=== PATIENT | male | born 1935 | race African-American/Black ===

== ENCOUNTER 2017-12-03 09:47 | Inpatient (IN) | payer OTHER, BC ==
--- NOTE | 2017-12-03 10:05 | PDOC ---
History of Present Illness - General Chief Complaint: Shortness of Breath Stated Complaint: FLU Time Seen by Provider: 12/03/17 10:02 History Source: Patient Exam Limitations: No Limitations - History of Present Illness Initial Comments: CHIEF COMPLAINT: 82 y/o febrile, tachycardic male with no significant PMH (No PCP or medical care in years) c/o body aches, fever, and productive cough of white sputum x 2 days. HISTORY OF PRESENT ILLNESS: The patient denies earache, runny nose, sore throat , CP, SOB, abd pain, n/v/d. He took tylenol yesterday for his symptoms. He did not have the flu shot this year. He is not on oxygen at home. 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 Vital signs on arrival are notable for pulse of 139 secondary to temp of 100.3. REVIEW OF SYSTEMS: GENERAL/CONSTITUTIONAL: +fever/chills. +body aches. No weakness. No weight change. HEAD, EYES, EARS, NOSE AND THROAT: No change in vision. No ear pain or discharge. No sore throat. CARDIOVASCULAR: No chest pain or shortness of breath. RESPIRATORY: +productive cough of white sputum. No wheezing or hemoptysis. GASTROINTESTINAL: No abd pain, nausea, vomiting, diarrhea. GENITOURINARY: No dysuria, frequency, or change in urination. MUSCULOSKELETAL: No joint or muscle swelling or pain. No neck or back pain. SKIN: No rash or easy bruising. NEUROLOGIC: No headache, vertigo, loss of consciousness, or loss of sensation. PHYSICAL EXAM: GENERAL: The patient is awake, alert, and fully oriented, in no acute distress. He has a consistent wet sounding cough. He is 97% on 2L of O2. HEAD: Normal with no signs of trauma. ENT: Pupils equal, round and reactive to light, extraocular movements intact, sclera anicteric, conjunctiva clear. Neck supple. LUNGS: Diffuse tight expiratory wheezing across all bravo. Labored breathing. CV: Rapid irregular rate, S1/S2, no MRG. Cap refill < 2 sec. ABDOMEN: Soft, non-distended, non-tender even to deep palpation, no hepatomegaly or splenomegaly, no masses. EXTREMITIES: Normal range of motion, no edema. NEUROLOGICAL: Normal speech, normal gait. CN II-XII grossly intact. PSYCH: Normal mood, normal affect. SKIN: Warm, dry, normal turgor, no rashes or lesions noted. Past History - Past Medical History Allergies/Adverse Reactions: Allergies Allergy/AdvReac Type Severity Reaction Status Date / Time No Known Allergies Allergy Verified 12/03/17 10:06 - Suicide/Smoking/Psychosocial Hx Smoking History: Current some day smoker Have you smoked in the past 12 months: Yes Number of Cigarettes Smoked Daily: 2 Information on smoking cessation initiated: No Hx Alcohol Use: No Drug/Substance Use Hx: No *Physical Exam - Vital Signs Last Vital Signs Temp Pulse Resp BP Pulse Ox 100.3 F H 139 H 20 119/75 98 12/03/17 09:56 12/03/17 09:56 12/03/17 09:56 12/03/17 09:56 12/03/17 09:56 Heart Score/ECG Review - ECG Intrepretation Comment:: Twelve-lead EKG was performed and reviewed by Dr. Wilson. There is sinus tachycardia with T wave abnormality. Impression: Abnormal twelve-lead EKG ED Treatment Course - LABORATORY CBC & Chemistry Diagram: 12/03/17 11:00 12/03/17 11:00 Medical Decision Making - Medical Decision Making A/P: 82 y/o febrile male with flu like symptoms. Plan is as follows: 1. Sepsis work up 2. Influenza swab 3. CXR 4. Duoneb x 2 5. IV tylenol 6. O2 via NC Elevated lactic Influenza A - positive Elevated troponin - 0.19 Will admit to [facility]. Spoke with ADELE Frederick who accepts admission under [facility]. Will call [facility] for consult. *DC/Admit/Observation/Transfer Diagnosis at time of Disposition: Influenza A, Tachycardia, Elevated troponin, Hypoxia, Wheezing, Lactic acidosis - Discharge Dispostion Condition at time of disposition: Stable Admit: Yes - Referrals - Patient Instructions - Post Discharge Activity
--- NOTE | 2017-12-03 10:58 | EKG ---
Test Reason : Blood Pressure : / mmHG Vent. Rate : 135 BPM Atrial Rate : 135 BPM P-R Int : 130 ms QRS Dur : 074 ms QT Int : 304 ms P-R-T Axes : 082 -78 078 degrees QTc Int : 456 ms SINUS TACHYCARDIA POSSIBLE LEFT ATRIAL ENLARGEMENT LEFT AXIS DEVIATION T WAVE ABNORMALITY, CONSIDER LATERAL ISCHEMIA ABNORMAL ECG NO PREVIOUS ECGS AVAILABLE Confirmed by OSWALDO HAWTHORNE MD ([id number]) on 12/03/2017 10:57:46 AM Referred By: Confirmed By:OSWALDO HAWTHORNE MD
[2017-12-03] MEDS: ALBUTEROL SO4 2.5/IPRATROPIUM 0.5 INH SOL 3 ML VIAL.NEB. NEB SCH ×2 (11:11→22:35)
[2017-12-03 11:21] LABS: BASO % 0.3 % (0-2.0); HEMATOCRIT 46.8 % (35.4-49); LYMPH % 6.8 % (8-40); MCH 29.7 pg (25.7-33.7); MCHC 32.1 g/dl (32.0-35.9); MEAN CELL VOLUME 92.4 fl (80-96); MEAN PLT VOLUME 9.9 fl (7.5-11.1); MONO % 11.1 % (3.8-10.2); NEUT % 81.8 % (42.8-82.8); PLATELET COUNT 168 K/MM3 (134-434); RBC 5.07 M/mm3 (4.00-5.60); RDW 13.7 % (11.9-15.9); WHITE BLOOD COUNT 8.1 K/mm3 (4.0-10.0)
[2017-12-03 11:32] LABS: INR 0.98 (0.82-1.09); PROTHROMBIN TIME (PATIENT) 11.1 SEC (9.98-11.88)
[2017-12-03 11:35] LABS: ACTIVATED PTT 32.9 SECONDS (26.9-34.4)
[2017-12-03 11:52] LABS: ALBUMIN 3.2 g/dl (3.4-5.0); ANION GAP 9 (8-16); BILIRUBIN,TOTAL 0.6 mg/dL (0.2-1.0); BLOOD UREA NITROGEN 18 mg/dL (7-18); CALCIUM 8.2 mg/dL (8.5-10.1); CHLORIDE 100 mmol/L (98-107); CO2 27 mmol/L (21-32); CREATININE 0.8 mg/dL (0.7-1.3); GLUCOSE,RANDOM 143 mg/dL (74-106); POTASSIUM 4.1 mmol/L (3.5-5.1); SGOT/AST 218 U/L (15-37); SGPT/ALT 147 U/L (12-78); SODIUM 136 mmol/L (136-145); TOT PROT 6.8 g/dl (6.4-8.2)
[2017-12-03 11:54] LABS: ALK PHOS 71 U/L (45-117)
--- NOTE | 2017-12-03 12:21 | PDOC ---
*Physical Exam - Vital Signs Last Vital Signs Temp Pulse Resp BP Pulse Ox 100.3 F H 123 H 20 119/75 97 12/03/17 09:56 12/03/17 10:04 12/03/17 09:56 12/03/17 09:56 12/03/17 10:04 - Physical Exam Comments: 12/03/17 12:20 Fever, tachycardia, O2 sat 97% Heart Score/ECG Review #1 General ECG Interpretation: Sinus Rhythm (tachy at 135), Normal Intervals, No acute ischemic changes (septal q wave, nonspecific t wave changes) ED Treatment Course - LABORATORY CBC & Chemistry Diagram: 12/03/17 11:00 12/03/17 11:00 - ADDITIONAL ORDERS Additional order review: Laboratory Results 12/03/17 12/03/17 12/03/17 11:00 11:00 11:00 PT with INR 11.10 INR 0.98 PTT (Actin FS) 32.9 Sodium 136 Potassium 4.1 Chloride 100 Carbon Dioxide 27 Anion Gap 9 BUN 18 Creatinine 0.8 Creat Clearance w eGFR > 60 Random Glucose 143 H Calcium 8.2 L Total Bilirubin 0.6 AST 218 H ALT 147 H Alkaline Phosphatase 71 Creatine Kinase 761 H Troponin I 0.19 H Total Protein 6.8 Albumin 3.2 L Blood Type B POSITIVE Antibody Screen Negative 12/03/17 10:31 Influenza Types A,B Antigen (RIGO) - Final Nasopharyngeal Swab - Final 12/03/17 11:00 RBC 5.07 MCV 92.4 MCHC 32.1 RDW 13.7 MPV 9.9 Neutrophils % 81.8 Lymphocytes % 6.8 L Monocytes % 11.1 H Eosinophils % 0.0 Basophils % 0.3 - Medications Given in the ED: ED Medications Discontinued Medications Generic Name Dose Route Start Last Admin Trade Name Freq PRN Reason Stop Dose Admin Albuterol/Ipratropium 1 amp 12/03/17 10:30 12/03/17 11:11 Duoneb - NEB 12/03/17 10:46 1 amp Q15M EDDIE Administration Medical Decision Making - Medical Decision Making 12/03/17 12:20 Patient seen and evaluated with the nurse practitioner. I agree with the overall evaluation, assessment, and management with the following summary of visit: 82-year-old male presents with influenza-like illness, fever and tachycardia. Agree with fever workup as outlined, Influenza A positive No leukocytosis, equivocal troponin Fluids tamiflu admit *DC/Admit/Observation/Transfer Diagnosis at time of Disposition: Influenza A, Tachycardia, Elevated troponin, Hypoxia - Discharge Dispostion Condition at time of disposition: Stable - Referrals - Patient Instructions - Post Discharge Activity
[2017-12-03] MEDS ORDERED: ACETAMINOPHEN 1000 MG/100 ML VIAL (NON FORMULARY) IVPB ONE (13:12)
[2017-12-03] MEDS ORDERED: ACETAMINOPHEN INJECTION 100 ML IVPB ONE (13:29)
[2017-12-03] MEDS ORDERED: ACETAMINOPHEN 325 MG TABLET (FP) PO PRN (13:35)
--- NOTE | 2017-12-03 13:35 | HP ---
CHIEF COMPLAINT: SOB PCP: None HISTORY OF PRESENT ILLNESS: 82 year-old male with no reported PMH as he has not sought medical care in years. He takes no medications on a regular basis. Presents to the ED today with SOB, fever, cough, and body aches x 2 days. He did not get the flu shot. 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 Family History: Allergies No Known Allergies Allergy (Verified 12/03/17 10:06) HOME MEDICATIONS: NONE REVIEW OF SYSTEMS CONSTITUTIONAL: +fever +body aches Absent: chills, diaphoresis, generalized weakness, malaise, loss of appetite, weight change HEENT: Absent: rhinorrhea, nasal congestion, throat pain, throat swelling, difficulty swallowing, mouth swelling, ear pain, eye pain, visual changes CARDIOVASCULAR: Absent: chest pain, syncope, palpitations, irregular heart rate, lightheadedness , peripheral edema RESPIRATORY: +cough +SOB Absent: dyspnea with exertion, orthopnea, wheezing, stridor, hemoptysis GASTROINTESTINAL: Absent: abdominal pain, abdominal distension, nausea, vomiting, diarrhea, constipation, melena, hematochezia GENITOURINARY: Absent: dysuria, frequency, urgency, hesitancy, hematuria, flank pain, genital pain MUSCULOSKELETAL: +body aches Absent: myalgia, arthralgia, joint swelling, back pain, neck pain SKIN: Absent: rash, itching, pallor HEMATOLOGIC/IMMUNOLOGIC: Absent: easy bleeding, easy bruising, lymphadenopathy, frequent infections ENDOCRINE: Absent: unexplained weight gain, unexplained weight loss, heat intolerance, cold intolerance NEUROLOGIC: Absent: headache, focal weakness or paresthesias, dizziness, unsteady gait, seizure, mental status changes, bladder or bowel incontinence PSYCHIATRIC: Absent: anxiety, depression, suicidal or homicidal ideation, hallucinations. PHYSICAL EXAMINATION Vital Signs - 24 hr 12/03/17 12/03/17 09:56 10:04 Temperature 100.3 F H Pulse Rate 139 H 123 H Respiratory 20 Rate Blood Pressure 119/75 O2 Sat by Pulse 98 97 Oximetry (%) GENERAL: Awake, alert, and fully oriented, in no acute distress. HEAD: Normal with no signs of trauma. EYES: Pupils equal, round and reactive to light, extraocular movements intact, sclera anicteric, conjunctiva clear. No lid lag. EARS, NOSE, THROAT: Ears normal, nares patent, oropharynx clear without exudates. Moist mucous membranes. NECK: Normal range of motion, supple without lymphadenopathy, JVD, or masses. LUNGS: Wheezing, scattered rhonchi HEART: Regular rate and rhythm, S1, S2 ABDOMEN: Soft, nontender, not distended, normoactive bowel sounds, no guarding, no rebound, no masses. No hepatomegaly or splenomegaly. MUSCULOSKELETAL: Normal range of motion at all joints. No bony deformities or tenderness. No CVA tenderness. UPPER EXTREMITIES: 2+ pulses, warm, well-perfused. No cyanosis. No clubbing. No peripheral edema. LOWER EXTREMITIES: 2+ pulses, warm, well-perfused. No calf tenderness. No peripheral edema. NEUROLOGICAL: Cranial nerves II-XII intact. Normal speech. Laboratory Results - last 24 hr 12/03/17 12/03/17 12/03/17 11:00 11:00 11:00 WBC 8.1 RBC 5.07 Hgb 15.0 Hct 46.8 MCV 92.4 MCH 29.7 MCHC 32.1 RDW 13.7 Plt Count 168 MPV 9.9 Neutrophils % 81.8 Lymphocytes % 6.8 L Monocytes % 11.1 H Eosinophils % 0.0 Basophils % 0.3 PT with INR 11.10 INR 0.98 PTT (Actin FS) 32.9 Sodium 136 Potassium 4.1 Chloride 100 Carbon Dioxide 27 Anion Gap 9 BUN 18 Creatinine 0.8 Creat Clearance w eGFR > 60 Random Glucose 143 H Lactic Acid Calcium 8.2 L Total Bilirubin 0.6 AST 218 H ALT 147 H Alkaline Phosphatase 71 Creatine Kinase 761 H Troponin I 0.19 H Total Protein 6.8 Albumin 3.2 L Blood Type Antibody Screen 12/03/17 12/03/17 11:00 11:00 WBC RBC Hgb Hct MCV MCH MCHC RDW Plt Count MPV Neutrophils % Lymphocytes % Monocytes % Eosinophils % Basophils % PT with INR INR PTT (Actin FS) Sodium Potassium Chloride Carbon Dioxide Anion Gap BUN Creatinine Creat Clearance w eGFR Random Glucose Lactic Acid 2.1 H Calcium Total Bilirubin AST ALT Alkaline Phosphatase Creatine Kinase Troponin I Total Protein Albumin Blood Type B POSITIVE Antibody Screen Negative ASSESSMENT/PLAN 82 year-old male with no reported PMH. Admitted for sepsis secondary to influenza A. Influenza A --Tamiflu --empiric ceftriaxone and azithromycin --CT chest pending Lactic acidosis --2.1-->2.7 --NS 500cc bolus x 1; then hourly infusion --repeat lactic acid in 4 hours Elevated troponin r/o ACS --initial troponin 0.19, two pending --ECG sinus tach @ 135bpm; non-specific T wave abnormalities; no acute ischemic changes --CXR unremarkable --likely demand ischemia from infection, tachycardia --echo pending --cannot r/o underlying CAD; per cardiology start low dose ASA; defer statin --telemetry monitoring FEN Fluids: NS 500cc bolus x 1, then 100mL/hr Electrolytes: replete as indicated Nutrition: regular diet DVT prophylaxis: lovenox, oob, ambulation Physical therapy evaluation Dispo: continues to require inpatient care. Full code. Visit type - Emergency Visit Emergency Visit: Yes ED Registration Date: 12/03/17 Care time: The patient presented to the Emergency Department on the above date and was hospitalized for further evaluation of their emergent condition. - New Patient This patient is new to me today: Yes Date on this admission: 12/03/17 - Critical Care Critical Care patient: No
[2017-12-03] MEDS ORDERED: SODIUM CHLORIDE 1,000 ML IV SCH ×2 (13:45→17:59)
[2017-12-03] MEDS ORDERED: OSELTAMIVIR PHOSPHATE 75 MG CAPSULE ONE (14:11)
[2017-12-03] MEDS: OSELTAMIVIR PHOSPHATE 75 MG CAPSULE PO SCH ×2 (14:17→22:32)
[2017-12-03] MEDS ORDERED: SODIUM CHLORIDE 500 ML IV STA (17:58)
--- NOTE | 2017-12-03 18:01 | CON.CARD ---
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 Er course notable for tachycardia and intermediate troponin elevation. + productive cough of white sputum x 2 days. Vital signs on arrival are notable for pulse of 139. given gentle ivf, tamiflu and tylenol in ER --> improvement in tachycardia. sedentary at baseline. has intermittent dyspnea with adl's stable. no history of cp or angina. no hx of evaluation for cad. denies earache, runny nose, sore throat, abd pain, n/v/d, rashes, visual disturbances. denies CP, orthopnea, pnd, le edema, palps, dizziness, bleeding. pmhx/pshx: per hpi social hx: Current smoker, drinks 1/2 glass of moonshine daily, occasionally snorts heroin family hx: no history of cardiac disease ros: per hpi Meds - no home meds Current Medications Acetaminophen (Tylenol -) 650 mg PO Q6H PRN PRN Reason: FEVER Enoxaparin Sodium (Lovenox -) 40 mg SQ DAILY [facility] Sodium Chloride (Normal Saline -) 1,000 mls @ 50 mls/hr IV ASDIR [facility] Stop: 12/04/17 13:39 Last Admin: 12/03/17 14:17 Dose: 50 mls/hr Oseltamivir Phosphate (Tamiflu -) 75 mg PO BID [facility] Stop: 12/08/17 13:44 Last Admin: 12/03/17 14:17 Dose: 75 mg Vital Signs - 24 hr 12/03/17 12/03/17 12/03/17 09:56 10:04 13:34 Temperature 100.3 F H 100.3 F H Pulse Rate 139 H 123 H 135 H Pulse Rate [ Apical] Respiratory 20 Rate Blood Pressure 119/75 Blood Pressure [Right Arm] O2 Sat by Pulse 98 97 Oximetry (%) 12/03/17 12/03/17 12/03/17 13:38 15:39 17:30 Temperature 98.3 F 98.2 F Pulse Rate Pulse Rate [ 125 H 117 H 108 H Apical] Respiratory 24 21 16 Rate Blood Pressure Blood Pressure 110/68 109/80 107/62 [Right Arm] O2 Sat by Pulse 96 97 98 Oximetry (%) 12/03/17 12/03/17 17:31 17:33 Temperature Pulse Rate 108 H Pulse Rate [ Apical] Respiratory Rate Blood Pressure Blood Pressure [Right Arm] O2 Sat by Pulse 98 98 Oximetry (%) Intake & Output 12/01/17 12/02/17 12/03/17 12/04/17 07:59 07:59 07:59 07:59 Weight 158 lb nad, calm jvd flat, neck supple + diffuse wheezes, nl effort rrr nl s1, s2 no mrg. pmi nd. + bs soft nt nd no hsm ext without e/c/c + dp/pt aaox3 no jaundice, diaphoresis CBC, BMP 12/03/17 11:00 12/03/17 11:00 Microbiology 12/03/17 10:31 Nasopharyngeal Swab Influenza Types A,B Antigen (RIGO) - Final 12/03/17 10:31 Nasopharyngeal Swab - Final Laboratory Tests 12/03/17 12/03/17 12/03/17 11:00 11:00 15:48 Lactic Acid 2.1 H 2.7 H* Total Bilirubin 0.6 AST 218 H ALT 147 H Alkaline Phosphatase 71 Creatine Kinase 761 H Creatine Kinase Index 0.5 CK-MB (CK-2) 3.883 H Troponin I 0.19 H Albumin 3.2 L ekg; sinus tach, 135 bpm. lad. non-specific t wave abnormality. no acute ischemic changes. tele: stach 110's with occasional pac's. cxr: report reviewed "some coarse base changes". images reviewed no chf 82 y/o smoker with no known PMH (No PCP or medical care in years) p/w fever, myalgias and cough and found to have flu. Er course notable for tachycardia and intermediate troponin elevation. flu - ongoing mgm't per pmd. IVF as needed. - + tobacco, nasal heroin use, baseline stable intermittent dyspnea with adl's. may have underlying pulmonary disease. tachycardia - appears to be SR, improved with tylenol and IVF. tele monitoring. - lyte repletion prn. will check magnesium and tsh. intermediate troponin elevation - likely strain in setting of tachycardia, no acute ischemic changes on ekg. no sign of acs at this time, con't to monitor/puneet. - no signs of chf - echo to evaluate for structural abnormalities - cannot rule out underlying cad. for now, will start low dose asa. defer statin in setting on lft abnormalities. will reevaluate need for ischemic work up once testing complete. + tobacco/etoh/intermittent heroin - cessation counseling.
[2017-12-04 00:54] VITALS: BMI 26.6
[2017-12-04 06:51] LABS: BASO % 0.4 % (0-2.0); EOS % 0.1 % (0-4.5); HEMOGLOBIN 14.2 GM/dL (11.7-16.9); LYMPH % 19.6 % (8-40); MCH 30.3 pg (25.7-33.7); MEAN CELL VOLUME 91.7 fl (80-96); MEAN PLT VOLUME 10.2 fl (7.5-11.1); MONO % 15.1 % (3.8-10.2); NEUT % 64.8 % (42.8-82.8); PLATELET COUNT 179 K/MM3 (134-434); RBC 4.68 M/mm3 (4.00-5.60); RDW 13.9 % (11.9-15.9); WHITE BLOOD COUNT 6.5 K/mm3 (4.0-10.0)
[2017-12-04 07:11] LABS: ALBUMIN 2.9 g/dl (3.4-5.0); ANION GAP 8 (8-16); BILIRUBIN,TOTAL 0.8 mg/dL (0.2-1.0); BLOOD UREA NITROGEN 14 mg/dL (7-18); CALCIUM 7.6 mg/dL (8.5-10.1); CHLORIDE 102 mmol/L (98-107); CO2 29 mmol/L (21-32); CREATININE 0.6 mg/dL (0.7-1.3); GLUCOSE,RANDOM 107 mg/dL (74-106); MAGNESIUM 1.7 mg/dL (1.8-2.4); POTASSIUM 3.3 mmol/L (3.5-5.1); SGOT/AST 153 U/L (15-37); SGPT/ALT 114 U/L (12-78); SODIUM 139 mmol/L (136-145); TOT PROT 6.1 g/dl (6.4-8.2)
[2017-12-04 07:20] LABS: ALK PHOS 60 U/L (45-117)
[2017-12-04] MEDS ORDERED: FLU VACCINE QUAD 60 MCG/0.5 ML (MDV 17-18) IM ONE (09:00)
[2017-12-04] MEDS ORDERED: PNEUMOC 13-VAL CONJ-DIP CRM/PF 0.5 ML DISP.SYRIN IM ONE (09:00)
[2017-12-04] MEDS ORDERED: PT OWN MED DRAWER 7, Y5N ONE ×4 (09:02→20:53)
[2017-12-04] MEDS: OSELTAMIVIR PHOSPHATE 75 MG CAPSULE PO SCH ×2 (09:04→21:38)
[2017-12-04] MEDS: ASPIRIN COATED 81 MG TABLET.EC PO SCH (09:04)
[2017-12-04] MEDS: ENOXAPARIN NA (PORCINE) 40 MG/0.4 ML DISP.SYRIN SQ SCH (09:13)
[2017-12-04] MEDS ORDERED: MAGNESIUM SULF 50% (8.12 MEQ/2 ML-1 GM VIAL) IVPB ONE (09:15)
[2017-12-04] MEDS ORDERED: POTASSIUM CHLORIDE TABS 20 MEQ TABLET.ER (FP) PO SCH (09:15)
[2017-12-04] MEDS ORDERED: SODIUM CHLORIDE 1,000 ML IV SCH (09:21)
--- NOTE | 2017-12-04 09:23 | PN ---
Physical Exam: SUBJECTIVE: Patient seen and examined. Says cough is slightly better. OBJECTIVE: Vital Signs Period Temp Pulse Resp BP Sys/Luke Pulse Ox Last 24 Hr 98.2 F-100.3 F 88-139 16-24 95-159/62-88 96-100 GENERAL: Awake, alert, and fully oriented, in no acute distress. LUNGS: Wheezing, scattered rhonchi HEART: Regular rate and rhythm, S1, S2 ABDOMEN: Soft, nontender, not distended, normoactive bowel sounds, no guarding, no rebound, no masses. UPPER EXTREMITIES: 2+ pulses, warm, well-perfused. No cyanosis. No clubbing. No peripheral edema. LOWER EXTREMITIES: 2+ pulses, warm, well-perfused. No calf tenderness. No peripheral edema. NEUROLOGICAL: Cranial nerves II-XII intact. Normal speech. Laboratory Results - last 24 hr 12/03/17 12/03/17 12/03/17 11:00 11:00 11:00 WBC 8.1 RBC 5.07 Hgb 15.0 Hct 46.8 MCV 92.4 MCH 29.7 MCHC 32.1 RDW 13.7 Plt Count 168 MPV 9.9 Neutrophils % 81.8 Lymphocytes % 6.8 L Monocytes % 11.1 H Eosinophils % 0.0 Basophils % 0.3 PT with INR 11.10 INR 0.98 PTT (Actin FS) 32.9 Sodium 136 Potassium 4.1 Chloride 100 Carbon Dioxide 27 Anion Gap 9 BUN 18 Creatinine 0.8 Creat Clearance w eGFR > 60 Random Glucose 143 H Lactic Acid Calcium 8.2 L Magnesium Total Bilirubin 0.6 AST 218 H ALT 147 H Alkaline Phosphatase 71 Creatine Kinase 761 H Creatine Kinase Index 0.5 CK-MB (CK-2) 3.883 H Troponin I 0.19 H Total Protein 6.8 Albumin 3.2 L TSH Blood Type Antibody Screen 12/03/17 12/03/17 12/03/17 11:00 11:00 15:48 WBC RBC Hgb Hct MCV MCH MCHC RDW Plt Count MPV Neutrophils % Lymphocytes % Monocytes % Eosinophils % Basophils % PT with INR INR PTT (Actin FS) Sodium Potassium Chloride Carbon Dioxide Anion Gap BUN Creatinine Creat Clearance w eGFR Random Glucose Lactic Acid 2.1 H 2.7 H* Calcium Magnesium Total Bilirubin AST ALT Alkaline Phosphatase Creatine Kinase Creatine Kinase Index CK-MB (CK-2) Troponin I Total Protein Albumin TSH Blood Type B POSITIVE Antibody Screen Negative 12/03/17 12/03/17 12/03/17 21:10 21:10 21:10 WBC RBC Hgb Hct MCV MCH MCHC RDW Plt Count MPV Neutrophils % Lymphocytes % Monocytes % Eosinophils % Basophils % PT with INR INR PTT (Actin FS) Sodium Potassium Chloride Carbon Dioxide Anion Gap BUN Creatinine Creat Clearance w eGFR Random Glucose Lactic Acid 2.3 H* Calcium Magnesium Total Bilirubin AST ALT Alkaline Phosphatase Creatine Kinase 680 H Creatine Kinase Index 0.6 CK-MB (CK-2) 4.602 H Troponin I 0.18 H 0.18 H Total Protein Albumin TSH Blood Type Antibody Screen 12/04/17 12/04/17 06:30 06:30 WBC 6.5 RBC 4.68 Hgb 14.2 Hct 43.0 MCV 91.7 MCH 30.3 MCHC 33.0 RDW 13.9 Plt Count 179 MPV 10.2 Neutrophils % 64.8 D Lymphocytes % 19.6 D Monocytes % 15.1 H Eosinophils % 0.1 D Basophils % 0.4 PT with INR INR PTT (Actin FS) Sodium 139 Potassium 3.3 L Chloride 102 Carbon Dioxide 29 Anion Gap 8 BUN 14 D Creatinine 0.6 L D Creat Clearance w eGFR > 60 Random Glucose 107 H D Lactic Acid Calcium 7.6 L Magnesium 1.7 L Total Bilirubin 0.8 D AST 153 H D ALT 114 H D Alkaline Phosphatase 60 Creatine Kinase Creatine Kinase Index CK-MB (CK-2) Troponin I 0.12 H D Total Protein 6.1 L Albumin 2.9 L TSH 0.22 L Blood Type Antibody Screen Active Medications Generic Name Dose Route Start Last Admin Trade Name Freq PRN Reason Stop Dose Admin Acetaminophen 650 mg 12/03/17 13:35 Tylenol - PO Q6H PRN FEVER Albuterol/Ipratropium 1 amp 12/03/17 22:00 12/03/17 22:35 Duoneb - NEB 1 amp Q4HPO EDDIE Administration Aspirin 81 mg 12/04/17 10:00 12/04/17 09:04 Ecotrin - PO 81 mg DAILY EDDIE Administration Enoxaparin Sodium 40 mg 12/04/17 10:00 12/04/17 09:13 Lovenox - SQ 40 mg DAILY EDDIE Administration Sodium Chloride 1,000 mls @ 75 mls/hr 12/03/17 17:59 02/01/18 22:31 Normal Saline - IV 12/04/17 13:39 75 mls/hr ASDIR EDDIE Administration MAGNESIUM SULFATE IN WATER 2 gm in 50 mls @ 50 mls/hr 12/04/17 09:30 Magnesium Sulf 2 G/50 Ml Bag IVPB 12/04/17 10:29 ONCE ONE Oseltamivir Phosphate 75 mg 12/03/17 13:45 12/04/17 09:04 Tamiflu - PO 12/08/17 13:44 75 mg BID EDDIE Administration Potassium Chloride 40 meq 12/04/17 09:15 K-Dur - PO 12/04/17 15:16 Q6H EDDIE Microbiology 12/03/17 11:00 Blood - Peripheral Venous Blood Culture - Preliminary NO GROWTH OBTAINED AFTER 24 HOURS, INCUBATION TO CONTINUE FOR 4 DAYS. 12/03/17 10:55 Blood - Peripheral Venous Blood Culture - Preliminary NO GROWTH OBTAINED AFTER 24 HOURS, INCUBATION TO CONTINUE FOR 4 DAYS. 12/03/17 10:31 Nasopharyngeal Swab Influenza Types A,B Antigen (RIGO) - Final + Influenza A 12/03/17 10:31 Nasopharyngeal Swab - Final ASSESSMENT/PLAN 82 year-old male with no reported PMH. Admitted for sepsis secondary to influenza A. Influenza A --CT chest: bronchial wall thickening throughout with bronchiectasis in both lung bases; small airways disease presumably infectious --afebrile, no leukocytosis; lung exam with bronchospasm and wheezing --Tamiflu; empiric ceftriaxone and azithromycin; start solumedrol 40mg q8h Lactic acidosis, resolved Elevated troponin r/o ACS --flat trending troponins --ECG sinus tach @ 135bpm; non-specific T wave abnormalities; no acute ischemic changes --CXR unremarkable --likely demand ischemia from infection, tachycardia --2/2 Echo: LV normal; RV normal; trace to mild MR; mild TR; technically limited study --cannot r/o underlying CAD; per cardiology, continue low dose ASA; defer statin due to elevated transaminases (trending down) --telemetry monitoring FEN Fluids: PO intake adequate Electrolytes: replete as indicated Nutrition: regular diet DVT prophylaxis: lovenox, oob, ambulation Physical therapy evaluation Dispo: continues to require inpatient care. Full code. Visit type - Emergency Visit Emergency Visit: Yes ED Registration Date: 12/03/17 Care time: The patient presented to the Emergency Department on the above date and was hospitalized for further evaluation of their emergent condition. - New Patient This patient is new to me today: No - Critical Care Critical Care patient: No
[2017-12-04] MEDS ORDERED: MAGNESIUM SULFATE IN WATER 2 GM/50 ML IVPB IVPB ONE (09:30)
[2017-12-04] MEDS: ALBUTEROL SO4 2.5/IPRATROPIUM 0.5 INH SOL 3 ML VIAL.NEB. NEB SCH ×4 (09:34→22:00)
[2017-12-04] MEDS: POTASSIUM CHLORIDE TABS 20 MEQ TABLET.ER (FP) PO SCH ×2 (09:43→15:45)
--- NOTE | 2017-12-04 09:57 | EKG ---
Test Reason : Blood Pressure : / mmHG Vent. Rate : 109 BPM Atrial Rate : 109 BPM P-R Int : 144 ms QRS Dur : 078 ms QT Int : 376 ms P-R-T Axes : 086 -73 081 degrees QTc Int : 506 ms SINUS TACHYCARDIA LEFT AXIS DEVIATION ABNORMAL ECG WHEN COMPARED WITH ECG OF 03-DEC-2017 09:55, T WAVE INVERSION NO LONGER EVIDENT IN ANTERIOR LEADS Confirmed by STEVE SMALLS, SHANITA ([id number]) on 12/04/2017 9:56:49 AM Referred By: Confirmed By:SHANITA WILSON MD
--- NOTE | 2017-12-04 10:14 | PN ---
Progress Note (short form) - Note Progress Note: s: feels a little better. mild sob/cough, no cp palps dizzy o: Vital Signs Period Temp Pulse Resp BP Sys/Luke Pulse Ox Last 24 Hr 98.2 F-100.3 F 88-135 16-24 95-159/62-88 96-100 nad, calm jvd flat, neck supple + diffuse mild wheezes, nl effort rrr nl s1, s2 no mrg. pmi nd. + bs soft nt nd no hsm ext without e/c/c aaox3 no jaundice, diaphoresis Current Medications Generic Name Dose Route Start Last Admin Trade Name Freq PRN Reason Stop Dose Admin Acetaminophen 650 mg 12/03/17 13:35 Tylenol - PO Q6H PRN FEVER Albuterol/Ipratropium 1 amp 12/03/17 22:00 12/04/17 09:34 Duoneb - NEB 1 amp Q4HPO EDDIE Administration Aspirin 81 mg 12/04/17 10:00 12/04/17 09:04 Ecotrin - PO 81 mg DAILY EDDIE Administration Enoxaparin Sodium 40 mg 12/04/17 10:00 12/04/17 09:13 Lovenox - SQ 40 mg DAILY EDDIE Administration MAGNESIUM SULFATE IN WATER 2 gm in 50 mls @ 50 mls/hr 12/04/17 09:30 Magnesium Sulf 2 G/50 Ml Bag IVPB 12/04/17 10:29 ONCE ONE Sodium Chloride 1,000 mls @ 100 mls/hr 12/04/17 09:21 Normal Saline - IV 12/04/17 13:39 ASDIR EDDIE Oseltamivir Phosphate 75 mg 12/03/17 13:45 12/04/17 09:04 Tamiflu - PO 12/08/17 13:44 75 mg BID EDDIE Administration Potassium Chloride 40 meq 12/04/17 09:15 12/04/17 09:43 K-Dur - PO 12/04/17 15:16 40 meq Q6H EDDIE Administration CBC, BMP 12/04/17 06:30 12/04/17 06:30 ekg; sinus tach, 135 bpm. lad. non-specific t wave abnormality. no acute ischemic changes. tele: sr cxr: report reviewed "some coarse base changes". images reviewed no chf a/p: 82 y/o smoker with no known PMH (No PCP or medical care in years) p/w fever , myalgias and cough and found to have flu. Er course notable for tachycardia and intermediate troponin elevation. flu - ongoing mgm't per pmd. IVF as needed. - + tobacco, nasal heroin use, baseline stable intermittent dyspnea with adl's. may have underlying pulmonary disease. tachycardia - SR, improved with tylenol and IVF. tele monitoring. - lyte repletion prn intermediate troponin elevation - borderline levels, flat trend, not c/w acs - no signs of chf - echo to evaluate for structural abnormalities + tobacco/etoh/intermittent heroin - cessation counseling.
[2017-12-04 14:35] LABS: URINE APPEARANCE CLEAR; URINE BILIRUBIN NEGATIVE (NEGATIVE); URINE BLOOD 1+ (NEGATIVE); URINE COLOR DKYELLOW; URINE GLUCOSE (UA) NEGATIVE (NEGATIVE); URINE KETONE 1+ (NEGATIVE); URINE LEUK ESTERASE TRACE (NEGATIVE); URINE NITRITE NEGATIVE (NEGATIVE); URINE UROBILINOGEN 4.0 E.U/dl mg/dL (0.2-1.0)
[2017-12-04 14:41] LABS: URINE PROTEIN 1+ (NEGATIVE)
[2017-12-04 15:03] LABS: URINE MUCUS RARE
[2017-12-04] MEDS: methylPREDNISolone NA SUCC 40 MG/1 ML VIAL IVPUSH SCH (15:46)
[2017-12-05] MEDS: ALBUTEROL SO4 2.5/IPRATROPIUM 0.5 INH SOL 3 ML VIAL.NEB. NEB SCH ×6 (02:00→22:00)
[2017-12-05] MEDS: methylPREDNISolone NA SUCC 40 MG/1 ML VIAL IVPUSH SCH ×2 (02:10→10:01)
[2017-12-05 06:17] LABS: BASO % 0.3 % (0-2.0); HEMATOCRIT 44.2 % (35.4-49); HEMOGLOBIN 14.7 GM/dL (11.7-16.9); LYMPH % 11.7 % (8-40); MCH 30.5 pg (25.7-33.7); MCHC 33.3 g/dl (32.0-35.9); MEAN CELL VOLUME 91.6 fl (80-96); MEAN PLT VOLUME 9.5 fl (7.5-11.1); MONO % 4.8 % (3.8-10.2); NEUT % 83.2 % (42.8-82.8); PLATELET COUNT 227 K/MM3 (134-434); RBC 4.82 M/mm3 (4.00-5.60); RDW 13.8 % (11.9-15.9); WHITE BLOOD COUNT 5.8 K/mm3 (4.0-10.0)
[2017-12-05 06:53] LABS: CHLORIDE 104 mmol/L (98-107); POTASSIUM 4.1 mmol/L (3.5-5.1); SODIUM 140 mmol/L (136-145)
[2017-12-05 07:00] LABS: ALBUMIN 3.3 g/dl (3.4-5.0); ALK PHOS 65 U/L (45-117); ANION GAP 8 (8-16); BLOOD UREA NITROGEN 12 mg/dL (7-18); CALCIUM 8.2 mg/dL (8.5-10.1); CO2 28 mmol/L (21-32); CREATININE 0.7 mg/dL (0.7-1.3); GLUCOSE,RANDOM 171 mg/dL (74-106); MAGNESIUM 2.1 mg/dL (1.8-2.4); SGOT/AST 122 U/L (15-37); SGPT/ALT 106 U/L (12-78)
--- NOTE | 2017-12-05 08:03 | PN ---
Progress Note, Physician Chief Complaint: sob History of Present Illness: incr sob this am. says he heard some wheezing today. no cp, leg swelling. + cigs - Current Medication List Current Medications: Active Medications Acetaminophen (Tylenol -) 650 mg PO Q6H PRN PRN Reason: FEVER Albuterol/Ipratropium (Duoneb -) 1 amp NEB Q4HPO [facility] Last Admin: 12/05/17 06:07 Dose: 1 amp Aspirin (Ecotrin -) 81 mg PO DAILY [facility] Last Admin: 12/04/17 09:04 Dose: 81 mg Enoxaparin Sodium (Lovenox -) 40 mg SQ DAILY [facility] Last Admin: 12/04/17 09:13 Dose: 40 mg Methylprednisolone Sodium Succinate (Solu-Medrol -) 40 mg IVPUSH Q8H-IV [facility] Last Admin: 12/05/17 02:10 Dose: 40 mg Oseltamivir Phosphate (Tamiflu -) 75 mg PO BID [facility] Stop: 12/08/17 13:44 Last Admin: 12/04/17 21:38 Dose: 75 mg - Objective Vital Signs: Vital Signs Temperature 98.0 F 12/05/17 06:00 Pulse Rate 112 H 12/05/17 06:00 Respiratory Rate 22 12/05/17 06:00 Blood Pressure 128/82 12/05/17 06:37 O2 Sat by Pulse Oximetry (%) 99 12/04/17 21:00 Constitutional: Yes: No Distress, Calm Eyes: No: Sclera Icterus HENT: No: Nasal Congestion Cardiovascular: Yes: Regular Rate and Rhythm, S1, S2, Other (PMI non diplaced). No: JVD (tds accessory neck muscle use), Gallop, Murmur Respiratory: Yes: CTA Bilaterally (decr air flow sounds), Accessory Muscle Use. No: Rales, Wheezes Gastrointestinal: Yes: Normal Bowel Sounds, Soft. No: Tenderness Musculoskeletal: Yes: Other (No kyphosis) Extremities: No: Cold Edema: No Integumentary: No: Jaundice Neurological: Yes: Alert. No: Seizure Psychiatric: No: Agitated Labs: CBC, BMP 12/05/17 05:43 12/05/17 05:43 INR, PTT INR 0.98 (0.82-1.09) 12/03/17 11:00 - ....Imaging EKG: Other (tele: sinus tach, artifact) Assessment/Plan ekg; sinus tach, 135 bpm. non-specific t wave abnormality. no acute ischemic changes. cxr: report reviewed "some coarse base changes". images reviewed no chf Echo 12/20: nl LVSF, no RWMA seen (tds images). nl RV. nl LA. valve fxn WNL. trivial peric eff a/p: 82 y/o smoker with no known PMH (No PCP or medical care in years) p/w fever , myalgias and cough and found to have flu. Er course notable for tachycardia and intermediate troponin elevation. flu, acute resp distress - decr airflow on exam today, pt admits to h/o airways dz (? reliable historian) . tachycardic and tachypneic. - d/w'd hospitalist: incr steroids and cont aggressive BDs. - no signs of HF on exam sinus tachycardia - worsened 2/3 likely sec to worsening resp distress, ? steroid effect - defer AVN blocking meds - doubt hyperthyroid (TSH 0.2)--per hospitalist intermediate troponin elevation - borderline levels, flat trend (0.1 x4), not c/w acs - no signs of chf - normal LVSF on echo - no further w/u indicated in absence of CAD sx's + tobacco/etoh/intermittent heroin - cessation counseled here. elevated LFTs: - ? viral syndrome related - gradually improving - per hospitalist
[2017-12-05 08:26] LABS: URINE APPEARANCE CLEAR; URINE BILIRUBIN NEGATIVE (NEGATIVE); URINE BLOOD 2+ (NEGATIVE); URINE COLOR YELLOW; URINE GLUCOSE (UA) 1+ (NEGATIVE); URINE KETONE 1+ (NEGATIVE); URINE LEUK ESTERASE TRACE (NEGATIVE); URINE NITRITE NEGATIVE (NEGATIVE)
[2017-12-05 08:27] LABS: URINE PROTEIN 1+ (NEGATIVE)
[2017-12-05 08:39] LABS: EPI CELLS RARE /HPF (FEW); URINE BACTERIA FEW /hpf (NONE SEEN); URINE HYALINE CAST 1 /lpf; URINE MUCUS RARE
[2017-12-05] MEDS: ENOXAPARIN NA (PORCINE) 40 MG/0.4 ML DISP.SYRIN SQ SCH (09:54)
[2017-12-05] MEDS: ASPIRIN COATED 81 MG TABLET.EC PO SCH (09:54)
[2017-12-05] MEDS: OSELTAMIVIR PHOSPHATE 75 MG CAPSULE PO SCH ×2 (09:54→22:03)
[2017-12-05] MEDS ORDERED: PT OWN MED DRAWER 7, Y5N ONE ×2 (12:31→21:56)
[2017-12-05] MEDS: NYSTATIN 500,000 UNITS/5 ML SUSPENSION PO SCH ×2 (12:37→18:48)
[2017-12-05] MEDS: METHIMAZOLE 10 MG TABLET (FP) PO SCH (12:37)
[2017-12-05] MEDS: methylPREDNISolone NA SUCC 125 MG/2 ML VIAL IVPUSH SCH ×2 (14:12→22:00)
[2017-12-05 17:00] LABS: ARTERIAL BLD GAS O2 SATURATION 98.1 % (90-98.9); ARTERIAL BLOOD GAS BASE EXCESS 2.6 meq/l (-2-2); ARTERIAL BLOOD GAS pH 7.37 (7.35-7.45)
[2017-12-05 17:01] LABS: ALLENS TEST POSITIVE
--- NOTE | 2017-12-05 17:54 | PN ---
Physical Exam: SUBJECTIVE: Patient seen and examined. He says he is feeling short of breath. Stated on venti mask, then nrb Events - abg noted OBJECTIVE: Vital Signs Period Temp Pulse Resp BP Sys/Luke Pulse Ox Last 24 Hr 97.8 F-99.1 F 99-128 20-38 113-175/72-101 99-100 PE Neuro: alert, awake, cn 2-12intact HEENT: + thrush Pulm: Diminished, distant, tachypenic CV: s1 s2 tachycardia Abd: s nt nd + bs Ext: Warm, no le edema Laboratory Results - last 24 hr 12/04/17 12/04/17 12/05/17 02:30 09:50 05:43 WBC 5.8 RBC 4.82 Hgb 14.7 Hct 44.2 MCV 91.6 MCH 30.5 MCHC 33.3 RDW 13.8 Plt Count 227 D MPV 9.5 Neutrophils % 83.2 H D Lymphocytes % 11.7 D Monocytes % 4.8 Eosinophils % 0.0 D Basophils % 0.3 Puncture Site ABG pH ABG pCO2 at Pt Temp ABG pO2 at Pt Temp ABG HCO3 ABG O2 Sat (Measured) ABG O2 Content ABG Base Excess Sher Test Oxygen Flow Rate Sodium Potassium Chloride Carbon Dioxide Anion Gap BUN Creatinine Creat Clearance w eGFR Random Glucose Calcium Magnesium Total Bilirubin AST ALT Alkaline Phosphatase Total Protein Albumin Free T3 2.3 Urine Color Yellow Urine Appearance Clear Urine pH 5.0 Ur Specific [place] 1.021 Urine Protein 1+ H Urine Glucose (UA) 1+ H Urine Ketones 1+ H Urine Blood 2+ H Urine Nitrite Negative Urine Bilirubin Negative Urine Urobilinogen 2.0 Ur Leukocyte Esterase Trace Urine WBC (Auto) 8 Urine RBC (Auto) 29 Ur Epithelial Cells Rare Urine Bacteria Few Hyaline Casts 1 Urine Mucus Rare 12/05/17 12/05/17 05:43 17:00 WBC RBC Hgb Hct MCV MCH MCHC RDW Plt Count MPV Neutrophils % Lymphocytes % Monocytes % Eosinophils % Basophils % Puncture Site Left radial ABG pH 7.37 ABG pCO2 at Pt Temp 49.0 H ABG pO2 at Pt Temp 114.0 H ABG HCO3 28.2 H ABG O2 Sat (Measured) 98.1 ABG O2 Content No Result Required. ABG Base Excess 2.6 H Sher Test Positive Oxygen Flow Rate No Result Required. Sodium 140 Potassium 4.1 D Chloride 104 Carbon Dioxide 28 Anion Gap 8 BUN 12 Creatinine 0.7 Creat Clearance w eGFR > 60 Random Glucose 171 H D Calcium 8.2 L Magnesium 2.1 D Total Bilirubin 1.0 D AST 122 H D ALT 106 H Alkaline Phosphatase 65 Total Protein 7.0 Albumin 3.3 L Free T3 Urine Color Urine Appearance Urine pH Ur Specific [place] Urine Protein Urine Glucose (UA) Urine Ketones Urine Blood Urine Nitrite Urine Bilirubin Urine Urobilinogen Ur Leukocyte Esterase Urine WBC (Auto) Urine RBC (Auto) Ur Epithelial Cells Urine Bacteria Hyaline Casts Urine Mucus Active Medications Generic Name Dose Route Start Last Admin Trade Name Freq PRN Reason Stop Dose Admin Acetaminophen 650 mg 12/03/17 13:35 Tylenol - PO Q6H PRN FEVER Albuterol/Ipratropium 1 amp 12/03/17 22:00 12/05/17 17:21 Duoneb - NEB 1 amp Q4HPO EDDIE Administration Aspirin 81 mg 12/04/17 10:00 12/05/17 09:54 Ecotrin - PO 81 mg DAILY EDDIE Administration Enoxaparin Sodium 40 mg 12/04/17 10:00 12/05/17 09:54 Lovenox - SQ 40 mg DAILY EDDIE Administration Methimazole 10 mg 12/05/17 12:30 12/05/17 12:37 Tapazole - PO 10 mg DAILY EDDIE Administration Methylprednisolone Sodium Succinate 60 mg 12/05/17 15:00 12/05/17 14:12 Solu-Medrol - IVPUSH 60 mg Q6H-IV EDDIE Administration Nystatin 500,000 units 12/05/17 12:00 12/05/17 12:37 Nystatin Oral Suspension - PO 500,000 units Q6HPO EDDIE Administration Oseltamivir Phosphate 75 mg 12/03/17 13:45 12/05/17 09:54 Tamiflu - PO 12/08/17 13:44 75 mg BID EDDIE Administration Imaging: - CT chest: bronchial wall thickening throughout with bronchiectasis in both lung bases; small airways disease presumably infectious - Echo: LV normal; RV normal; trace to mild MR; mild TR; technically limited study Assessment: 82 year-old male with no reported PMH. Admitted for sepsis secondary to influenza A. Plan: 1. Influenza A - Tamiflu - Increase medrol 60mg q6h - Start spirivia, symbicort 2. Lactic acidosis -Resolved 3. Elevated troponin - r/o ACS, trops flat - Cont ASA - No CHF s/x, ECHO above 4. Sinus tachycardia - Likely due to increased work of breathing/steroids 5. Hyperthyroid -Start methimazole 6. Tobacco/etoh/intermittent heroin - cessation counseling done 7. Oral thrush - Start nystatin s/s 8. Transaminitis - Hypotensive on 12/04 - Improving, trend 9. DVT prophylaxis - Lovenox sq Visit type - Emergency Visit Emergency Visit: Yes ED Registration Date: 12/03/17 Care time: The patient presented to the Emergency Department on the above date and was hospitalized for further evaluation of their emergent condition. - New Patient This patient is new to me today: Yes Date on this admission: 12/05/17 - Critical Care Critical Care patient: No
[2017-12-05] MEDS: BUDESONIDE/FORMETEROL FUMARATE 160/4.5 mcg INHALER IH SCH (22:03)
[2017-12-06] MEDS: ALBUTEROL SO4 2.5/IPRATROPIUM 0.5 INH SOL 3 ML VIAL.NEB. NEB SCH ×5 (02:00→21:18)
[2017-12-06] MEDS: methylPREDNISolone NA SUCC 125 MG/2 ML VIAL IVPUSH SCH ×4 (03:17→20:39)
[2017-12-06] MEDS: NYSTATIN 500,000 UNITS/5 ML SUSPENSION PO SCH ×4 (03:18→17:10)
[2017-12-06 07:42] LABS: ALBUMIN 3.3 g/dl (3.4-5.0); ALK PHOS 61 U/L (45-117); ANION GAP 9 (8-16); BILIRUBIN,TOTAL 0.6 mg/dL (0.2-1.0); BLOOD UREA NITROGEN 20 mg/dL (7-18); CALCIUM 8.6 mg/dL (8.5-10.1); CHLORIDE 104 mmol/L (98-107); CO2 31 mmol/L (21-32); CREATININE 0.8 mg/dL (0.7-1.3); GLUCOSE,RANDOM 153 mg/dL (74-106); SGOT/AST 139 U/L (15-37); SGPT/ALT 118 U/L (12-78); SODIUM 144 mmol/L (136-145)
--- NOTE | 2017-12-06 09:15 | PN ---
Physical Exam: SUBJECTIVE: Patient seen and examined. He says he is feeling better today, less short of breath. on NRB Events: - Hypertensive overnight OBJECTIVE: Vital Signs Period Temp Pulse Resp BP Sys/Luke Pulse Ox Last 24 Hr 97.8 F-98.2 F 112-133 22-38 152-178/87-105 100 PE Neuro: alert, awake, cn 2-12intact HEENT: + thrush Pulm: diminished, + NRB CV: s1 s2 tachycardia Abd: s nt nd + bs Ext: Warm, no le edema Laboratory Results - last 24 hr 12/05/17 12/06/17 17:00 06:00 Puncture Site Left radial ABG pH 7.37 ABG pCO2 at Pt Temp 49.0 H ABG pO2 at Pt Temp 114.0 H ABG HCO3 28.2 H ABG O2 Sat (Measured) 98.1 ABG O2 Content No Result Required. ABG Base Excess 2.6 H Sher Test Positive Oxygen Flow Rate No Result Required. Sodium 144 Potassium 4.0 Chloride 104 Carbon Dioxide 31 Anion Gap 9 BUN 20 H D Creatinine 0.8 Creat Clearance w eGFR > 60 Random Glucose 153 H Calcium 8.6 Total Bilirubin 0.6 D AST 139 H ALT 118 H Alkaline Phosphatase 61 Total Protein 7.0 Albumin 3.3 L Active Medications Generic Name Dose Route Start Last Admin Trade Name Freq PRN Reason Stop Dose Admin Acetaminophen 650 mg 12/03/17 13:35 Tylenol - PO Q6H PRN FEVER Albuterol/Ipratropium 1 amp 12/03/17 22:00 12/06/17 06:00 Duoneb - NEB 1 amp Q4HPO EDDIE Administration Aspirin 81 mg 12/04/17 10:00 12/05/17 09:54 Ecotrin - PO 81 mg DAILY EDDIE Administration Budesonide/Formoterol Fumarate 1 puff 12/05/17 22:00 12/05/17 22:03 Symbicort 160/4.5mcg - IH Not Given BID EDDIE Enoxaparin Sodium 40 mg 12/04/17 10:00 12/05/17 09:54 Lovenox - SQ 40 mg DAILY EDDIE Administration Methimazole 10 mg 12/05/17 12:30 12/05/17 12:37 Tapazole - PO 10 mg DAILY EDDIE Administration Methylprednisolone Sodium Succinate 60 mg 12/05/17 15:00 12/06/17 03:17 Solu-Medrol - IVPUSH 60 mg Q6H-IV EDDIE Administration Metoprolol Tartrate 25 mg 12/06/17 10:00 Lopressor - PO BID EDDIE Nystatin 500,000 units 12/05/17 12:00 12/06/17 07:06 Nystatin Oral Suspension - PO Not Given Q6HPO EDDIE Oseltamivir Phosphate 75 mg 12/03/17 13:45 12/05/17 22:03 Tamiflu - PO 12/08/17 13:44 75 mg BID EDDIE Administration Tiotropium [place] 1 puff 12/06/17 10:00 Spiriva - IH DAILY EDDIE Imaging: - CT chest: bronchial wall thickening throughout with bronchiectasis in both lung bases; small airway disease presumably infectious - Echo: LV normal; RV normal; trace to mild MR; mild TR; technically limited study Assessment: 82 year-old male with no reported PMH. Admitted for sepsis secondary to influenza A. Plan: 1. Influenza A - Tamiflu - Maintain medrol 60mg q6h - Continue spirivia, symbicort - Duonebs [facility] - Pulmonary consult 2. SOB/tachypnea - ABG noted - Continue NRB, trial NC after morning meds 3. HTN - Start cardizem 60mg QID 4. Lactic acidosis -Resolved 5. Elevated troponin - r/o ACS, trops flat - Cont ASA - No CHF s/x, ECHO above 6. Sinus tachycardia - Start cardizem - Likely due to increased work of breathing/steroids 7. Hyperthyroid - Started (2/3) methimazole 10mg daily 6. Tobacco/etoh/intermittent heroin - Cessation counseling done 7. Oral thrush - Continue nystatin s/s (2/3-) 8. Transaminitis - Due to above - Will trend 9. DVT prophylaxis - Lovenox sq Visit type - Emergency Visit Emergency Visit: Yes ED Registration Date: 12/03/17 Care time: The patient presented to the Emergency Department on the above date and was hospitalized for further evaluation of their emergent condition. - New Patient This patient is new to me today: No - Critical Care Critical Care patient: No
[2017-12-06] MEDS ORDERED: TIOTROPIUM BROMIDE 18 MCG/INH (DEVICE W/ 5 CAPSULES) IH SCH (10:00)
[2017-12-06] MEDS ORDERED: METOPROLOL TARTRATE 25 MG TABLET (FP) PO SCH (10:00)
[2017-12-06] MEDS ORDERED: dilTIAZem HCL 60 MG TABLET (FP) PO SCH (10:00)
[2017-12-06] MEDS: ASPIRIN COATED 81 MG TABLET.EC PO SCH (10:05)
[2017-12-06] MEDS: ENOXAPARIN NA (PORCINE) 40 MG/0.4 ML DISP.SYRIN SQ SCH (10:06)
[2017-12-06] MEDS: OSELTAMIVIR PHOSPHATE 75 MG CAPSULE PO SCH ×2 (10:07→23:12)
[2017-12-06] MEDS: METHIMAZOLE 10 MG TABLET (FP) PO SCH (10:08)
--- NOTE | 2017-12-06 10:43 | CON.PULM ---
Consult Consult Specialty:: PULMONARY Referred by:: ADELE Cox Reason for Consultation:: shortness of breath - History of Present Illness Chief Complaint: shortness of breath History of Present Illness: 82yo male with without significant past medical history but without regular medical f/u who was admitted with fevrs, chills and cough. Found to have positive troponins and influenza positive. He denies shortness of breath although visibly tachypneic. Febrile to 100.3, started on tamiflu. Now on NRB. He is a long time smoker, now down to 2 cigarettes/day. Also with alcohol use and occasional intranasal heroin use. He denies any history of asthma or COPD. - History Source History Provided By: Patient, Medical Record Limitations to Obtaining History: Poor Historian - Alcohol/Substance Use Hx Alcohol Use: Yes - Smoking History Smoking history: Current some day smoker Have you smoked in the past 12 months: Yes Aproximately how many cigarettes per day: 2 Home Medications - Allergies Allergies/Adverse Reactions: Allergies Allergy/AdvReac Type Severity Reaction Status Date / Time No Known Allergies Allergy Verified 12/03/17 10:06 - Home Medications Home Medications: Ambulatory Orders NK [No Known Home Medication] 12/04/17 Review of Systems - Review of Systems Constitutional: reports: Weakness. denies: Chills, Fever Eyes: denies: Recent Change in Vision HENT: denies: Nasal Congestion, Throat Pain Neck: denies: Stiffness, Tenderness Cardiovascular: reports: Shortness of Breath. denies: Chest Pain, Edema, Palpitations Respiratory: reports: Cough, Exercise Intolerance, SOB, SOB on Exertion. denies : Hemoptysis, Wheezing Gastrointestinal: denies: Abdominal Pain, Nausea, Vomiting Genitourinary: denies: Dysuria, Hematuria Neurological: denies: Dizziness, Headache Endocrine: denies: Unexplained Weight Gain, Unexplained Weight Loss Physical Exam Vital Sings: Vital Signs Temperature 98.2 F 12/05/17 19:53 Pulse Rate 122 H 12/06/17 06:00 Respiratory Rate 24 12/06/17 06:00 Blood Pressure 178/89 12/06/17 06:00 O2 Sat by Pulse Oximetry (%) 100 12/05/17 19:54 Constitutional: Yes: Moderate Distress Eyes: Yes: Conjunctiva Clear, EOM Intact HENT: Yes: Atraumatic, Normocephalic Neck: Yes: Supple, Trachea Midline Cardiovascular: Yes: Tachycardia Respiratory: Yes: Diminished (distant breath sounds), Rhonchi (scattered) ...Clubbing: No Gastrointestinal: Yes: Normal Bowel Sounds, Soft. No: Tenderness Edema: No Neurological: Yes: Alert Labs: CBC, BMP 12/05/17 05:43 12/06/17 06:00 ABG Results ABG pH 7.37 (7.35-7.45) 12/05/17 17:00 ABG pCO2 at Pt Temp 49.0 mmHg (35-45) H 12/05/17 17:00 ABG pO2 at Pt Temp 114.0 mmHg (68-100) H 12/05/17 17:00 ABG HCO3 28.2 meq/L (22-26) H 12/05/17 17:00 ABG O2 Sat (Measured) 98.1 % (90-98.9) 12/05/17 17:00 ABG O2 Content No Result Required. 12/05/17 17:00 ABG Base Excess 2.6 meq/l (-2-2) H 12/05/17 17:00 Imaging - Results Chest X-ray: Report Reviewed, Image Reviewed (basilar atelectasis, motion artifact) Problem List - Problems (1) Acute respiratory failure with hypoxia Code(s): J96.01 - ACUTE RESPIRATORY FAILURE WITH HYPOXIA (2) Influenza A Code(s): J10.1 - FLU DUE TO OTH IDENT INFLUENZA VIRUS W OTH RESP MANIFEST (3) Elevated liver enzymes Code(s): R74.8 - ABNORMAL LEVELS OF OTHER SERUM ENZYMES (4) Elevated troponin Code(s): R74.8 - ABNORMAL LEVELS OF OTHER SERUM ENZYMES (5) Lactic acidosis Code(s): E87.2 - ACIDOSIS (6) COPD with acute exacerbation Code(s): J44.1 - CHRONIC OBSTRUCTIVE PULMONARY DISEASE W (ACUTE) EXACERBATION Assessment/Plan Acute Hypoxic Respiratory Failure Acute COPD Exacerbation Influenza A +Troponins likely [place] Ischemia Elevated LFTs Smoker - agree with current medrol - inhaled bronchodilators standing - tamiflu - repeat ABG on NRB, if significant A-a gradient will need to consider CTA chest to r/o PE although severe V/Q mismatching from bronchospasm can also explain the hypoxia - LE dopplers - O2 to keep Spo2 >90% - DVT prophylaxis Thank you for this consult Gucci Aldana Md
--- NOTE | 2017-12-06 10:53 | PN ---
Progress Note, Physician Chief Complaint: flu, tachy History of Present Illness: denies sob. denies cp, leg swelling, palpitations - Current Medication List Current Medications: Active Medications Acetaminophen (Tylenol -) 650 mg PO Q6H PRN PRN Reason: FEVER Albuterol/Ipratropium (Duoneb -) 1 amp NEB Q4HPO [facility] Last Admin: 12/06/17 10:23 Dose: 1 amp Aspirin (Ecotrin -) 81 mg PO DAILY [facility] Last Admin: 12/06/17 10:05 Dose: 81 mg Budesonide/Formoterol Fumarate (Symbicort 160/4.5mcg -) 1 puff IH BID [facility] Last Admin: 12/05/17 22:03 Dose: Not Given Diltiazem HCl (Cardizem -) 60 mg PO QID [facility] Last Admin: 12/06/17 10:06 Dose: 60 mg Enoxaparin Sodium (Lovenox -) 40 mg SQ DAILY [facility] Last Admin: 12/06/17 10:06 Dose: 40 mg Methimazole (Tapazole -) 10 mg PO DAILY [facility] Last Admin: 12/06/17 10:08 Dose: 10 mg Methylprednisolone Sodium Succinate (Solu-Medrol -) 60 mg IVPUSH Q6H-IV [facility] Last Admin: 12/06/17 10:04 Dose: 60 mg Nystatin (Nystatin Oral Suspension -) 500,000 units PO Q6HPO [facility] Last Admin: 12/06/17 07:06 Dose: Not Given Oseltamivir Phosphate (Tamiflu -) 75 mg PO BID [facility] Stop: 12/08/17 13:44 Last Admin: 12/06/17 10:07 Dose: 75 mg - Objective Vital Signs: Vital Signs Temperature 98.2 F 12/05/17 19:53 Pulse Rate 122 H 12/06/17 06:00 Respiratory Rate 24 12/06/17 06:00 Blood Pressure 178/89 12/06/17 06:00 O2 Sat by Pulse Oximetry (%) 100 12/05/17 19:54 Constitutional: Yes: Well Nourished, No Distress, Calm Cardiovascular: Yes: Regular Rate and Rhythm (decr sounds), S1, S2. No: Gallop , Murmur Respiratory: Yes: Regular (decr sounds), CTA Bilaterally, Wheezes (faint). No: Accessory Muscle Use (NRB mask on), Rales Extremities: No: Cold Edema: No Neurological: Yes: Alert. No: Seizure Psychiatric: No: Agitated Labs: CBC, BMP 12/05/17 05:43 12/06/17 06:00 INR, PTT INR 0.98 (0.82-1.09) 12/03/17 11:00 - ....Imaging EKG: Other (tele: sinus tach) Assessment/Plan ekg; sinus tach, 135 bpm. non-specific t wave abnormality. no acute ischemic changes. cxr: report reviewed "some coarse base changes". images reviewed no chf Echo 12/20: nl LVSF, no RWMA seen (tds images). nl RV. nl LA. valve fxn WNL. trivial peric eff a/p: 82 y/o smoker with no known PMH (No PCP or medical care in years) p/w fever , myalgias and cough and found to have flu. Er course notable for tachycardia and intermediate troponin elevation. flu, acute resp distress - decr airflow on exam today, pt admits to h/o airways dz (? reliable historian) . tachycardic and tachypneic. - steroids and aggressive BDs per pulm/crit care - no signs of HF on exam sinus tachycardia - worsened 2/3 likely sec to worsening resp distress, ? steroid effect - will start moderate dose diltiazem for HR and BP control, given pt's clinical status is becoming tenuous (60 TID). defer BB (wheezing/ongoing obstructive airways process) - doubt hyperthyroid (TSH 0.2)--per hospitalist HTN: - bp elevated likely due to worsening respiratory distress - observe trend on CCB intermediate troponin elevation - borderline levels, flat trend (0.1 x4), not c/w acs - no signs of chf - normal LVSF on echo - no further w/u indicated in absence of CAD sx's + tobacco/etoh/intermittent heroin - cessation counseled here. elevated LFTs: - ? viral syndrome related - gradually improving - per hospitalist
[2017-12-06 11:54] LABS: ARTERIAL BLD GAS O2 SATURATION 99.7 % (90-98.9); ARTERIAL BLOOD GAS PCO2 60.7 mmHg (35-45); ARTERIAL BLOOD GAS pH 7.33 (7.35-7.45)
[2017-12-06] MEDS: BUDESONIDE/FORMETEROL FUMARATE 160/4.5 mcg INHALER IH SCH ×2 (13:27→23:12)
[2017-12-06] MEDS: dilTIAZem HCL 60 MG TABLET (FP) PO SCH ×2 (13:28→23:12)
[2017-12-06] MEDS ORDERED: PT OWN MED DRAWER 7, Y5N ONE (23:11)
[2017-12-07] MEDS: ALBUTEROL SO4 2.5/IPRATROPIUM 0.5 INH SOL 3 ML VIAL.NEB. NEB SCH ×6 (01:22→22:28)
[2017-12-07] MEDS: methylPREDNISolone NA SUCC 125 MG/2 ML VIAL IVPUSH SCH ×4 (02:53→21:32)
[2017-12-07 06:47] LABS: ALBUMIN 2.9 g/dl (3.4-5.0); ALK PHOS 53 U/L (45-117); ANION GAP 6 (8-16); BILIRUBIN,TOTAL 0.5 mg/dL (0.2-1.0); BLOOD UREA NITROGEN 22 mg/dL (7-18); CALCIUM 8.5 mg/dL (8.5-10.1); CHLORIDE 105 mmol/L (98-107); CO2 35 mmol/L (21-32); CREATININE 0.6 mg/dL (0.7-1.3); GLUCOSE,RANDOM 177 mg/dL (74-106); SGOT/AST 132 U/L (15-37); SGPT/ALT 123 U/L (12-78); SODIUM 146 mmol/L (136-145); TOT PROT 6.2 g/dl (6.4-8.2)
[2017-12-07] MEDS: NYSTATIN 500,000 UNITS/5 ML SUSPENSION PO SCH ×4 (06:56→17:43)
[2017-12-07] MEDS: dilTIAZem HCL 60 MG TABLET (FP) PO SCH ×3 (06:56→21:32)
--- NOTE | 2017-12-07 08:34 | PN ---
Physical Exam: SUBJECTIVE: Patient seen and examined in tele ICU. Denies chest pain, denies discomfort. States breathing is improving. OBJECTIVE: +conversational dyspnea + expiratory wheezing Hyperglycemia , start on Novolog Vital Signs Period Temp Pulse Resp BP Sys/Luke Pulse Ox Last 24 Hr 98.2 F-98.7 F 94-119 20-24 136-174/70-96 98-98 GENERAL: The patient is awake, alert, and fully oriented, in moderate respiratory distress. HEAD: Normal with no signs of trauma. EYES: PERRL, extraocular movements intact, sclera anicteric, conjunctiva clear. No ptosis. ENT: Ears normal, nares patent, oropharynx clear without exudates, moist mucous membranes. NECK: Trachea midline, full range of motion, supple. LUNGS: diminished breath sounds bilaterally, on 4 liters of nasal cannula, dyspnea at rest, + expiratory wheezing HEART: tachycardia 108 ABDOMEN: Soft, nontender, nondistended, normoactive bowel sounds, no guarding, no rebound, no hepatosplenomegaly, no masses. EXTREMITIES:trace bilateral lowe ext edema NEUROLOGICAL: conversational dyspnea PSYCH: Normal mood, normal affect. SKIN: Warm, dry, normal turgor, no rashes or lesions noted Laboratory Results - last 24 hr 12/06/17 12/07/17 11:45 05:35 Puncture Site Right radial ABG pH 7.33 L ABG pCO2 at Pt Temp 60.7 H* D ABG pO2 at Pt Temp 425.0 H* ABG HCO3 31.3 H ABG O2 Sat (Measured) 99.7 H* ABG O2 Content 21.4 ABG Base Excess 4.0 H O2 Delivery Device Nrm Oxygen Flow Rate 100% Sodium 146 H Potassium 4.0 Chloride 105 Carbon Dioxide 35 H Anion Gap 6 L BUN 22 H Creatinine 0.6 L D Creat Clearance w eGFR > 60 Random Glucose 177 H Calcium 8.5 Total Bilirubin 0.5 AST 132 H ALT 123 H Alkaline Phosphatase 53 Total Protein 6.2 L Albumin 2.9 L Active Medications Generic Name Dose Route Start Last Admin Trade Name Freq PRN Reason Stop Dose Admin Acetaminophen 650 mg 12/03/17 13:35 Tylenol - PO Q6H PRN FEVER Albuterol/Ipratropium 1 amp 12/03/17 22:00 12/07/17 06:25 Duoneb - NEB 1 amp Q4HPO EDDIE Administration Aspirin 81 mg 12/04/17 10:00 12/06/17 10:05 Ecotrin - PO 81 mg DAILY EDDIE Administration Budesonide/Formoterol Fumarate 1 puff 12/05/17 22:00 12/06/17 23:12 Symbicort 160/4.5mcg - IH 1 puff BID EDDIE Administration Diltiazem HCl 60 mg 12/06/17 14:00 12/07/17 06:56 Cardizem - PO 60 mg TID EDDIE Administration Enoxaparin Sodium 40 mg 12/04/17 10:00 12/06/17 10:06 Lovenox - SQ 40 mg DAILY EDDIE Administration Methimazole 10 mg 12/05/17 12:30 12/06/17 10:08 Tapazole - PO 10 mg DAILY EDDIE Administration Methylprednisolone Sodium Succinate 60 mg 12/05/17 15:00 12/07/17 02:53 Solu-Medrol - IVPUSH 60 mg Q6H-IV EDDIE Administration Nystatin 500,000 units 12/05/17 12:00 12/07/17 06:56 Nystatin Oral Suspension - PO 500,000 units Q6HPO EDDIE Administration Oseltamivir Phosphate 75 mg 12/03/17 13:45 12/06/17 23:12 Tamiflu - PO 12/08/17 13:44 75 mg BID EDDIE Administration ASSESSMENT/PLAN: Patient is an 82 year old male with no reported past medical history. Patient reports not seeing a physician for many years. He presents to the ED on 2017 with sepsis secondary to complications of Influenza. Imaging: CT chest: bronchial wall thickening throughout with bronchiectasis in both lung bases; small airway disease presumably infectious Echo: LV normal; RV normal; trace to mild MR; mild TR; technically limited study Sepsis: Respiratory Distress 2/2 of influenza A Tachypnea, improving Lactic acidosis resolved On Tamiflu On 2 - 4 liters of nasal cannula Continue on Spiriva, Symbicort Duonebs Monitor respiratory status Maintain 02 @ 90% or better Wean off oxygen as pt stablizes Pulmonary following Cardiology: Hypertension, controlled On Cardizem 60mg TID Elevated troponin Trops flat trending Echo noted Cardiology following Sinus tachycardia On Cardizem, oxygen Endocrine: Hyperthyroid Started (3) methimazole 10mg daily Hyperglycemia Boderline DM Started on Novolog for elevated BGMs Psyche: Tobacco/Etoh abuse/intermittent heroin Counseling cessation, no signs of withdrawal on exam GI: Transaminitis ALT: 218>132 AST: 142>123 Monitor trend Hepatitis panel F.E.N. Fluids: tolerating PO Electrolytes: monitor Nutrition: low sodium Disposition: full code Visit type - Emergency Visit Emergency Visit: Yes ED Registration Date: 12/03/17 Care time: The patient presented to the Emergency Department on the above date and was hospitalized for further evaluation of their emergent condition. - New Patient This patient is new to me today: Yes Date on this admission: 12/07/17 - Critical Care Critical Care patient: No - Discharge Referral Referred to [facility] Med P.C.: Yes Physician Referral: Aleksandar Fountain MD ([facility])
[2017-12-07] MEDS ORDERED: PT OWN MED DRAWER 7, Y5N ONE (09:07)
[2017-12-07] MEDS: ENOXAPARIN NA (PORCINE) 40 MG/0.4 ML DISP.SYRIN SQ SCH (09:14)
[2017-12-07] MEDS: BUDESONIDE/FORMETEROL FUMARATE 160/4.5 mcg INHALER IH SCH ×2 (09:14→21:34)
[2017-12-07] MEDS: ASPIRIN COATED 81 MG TABLET.EC PO SCH (09:14)
[2017-12-07] MEDS: OSELTAMIVIR PHOSPHATE 75 MG CAPSULE PO SCH ×2 (09:15→21:34)
[2017-12-07] MEDS: METHIMAZOLE 10 MG TABLET (FP) PO SCH (09:16)
--- NOTE | 2017-12-07 10:11 | PN ---
Progress Note, Physician Chief Complaint: sob History of Present Illness: breathing better no cp, palpit, syncope - Current Medication List Current Medications: Active Medications Acetaminophen (Tylenol -) 650 mg PO Q6H PRN PRN Reason: FEVER Albuterol/Ipratropium (Duoneb -) 1 amp NEB Q4HPO [facility] Last Admin: 12/07/17 09:39 Dose: 1 amp Aspirin (Ecotrin -) 81 mg PO DAILY [facility] Last Admin: 12/07/17 09:14 Dose: 81 mg Budesonide/Formoterol Fumarate (Symbicort 160/4.5mcg -) 1 puff IH BID [facility] Last Admin: 12/07/17 09:14 Dose: 1 puff Diltiazem HCl (Cardizem -) 60 mg PO TID [facility] Last Admin: 12/07/17 06:56 Dose: 60 mg Enoxaparin Sodium (Lovenox -) 40 mg SQ DAILY [facility] Last Admin: 12/07/17 09:14 Dose: 40 mg Insulin Aspart (Novolog Vial Sliding Scale -) 1 vial SQ ACHS [facility] PRN Reason: Protocol Methimazole (Tapazole -) 10 mg PO DAILY [facility] Last Admin: 12/07/17 09:16 Dose: 10 mg Methylprednisolone Sodium Succinate (Solu-Medrol -) 60 mg IVPUSH Q6H-IV [facility] Last Admin: 12/07/17 09:13 Dose: 60 mg Nystatin (Nystatin Oral Suspension -) 500,000 units PO Q6HPO [facility] Last Admin: 12/07/17 06:56 Dose: 500,000 units Oseltamivir Phosphate (Tamiflu -) 75 mg PO BID [facility] Stop: 12/08/17 13:44 Last Admin: 12/07/17 09:15 Dose: 75 mg - Objective Vital Signs: Vital Signs Temperature 98.2 F 12/07/17 05:00 Pulse Rate 94 H 12/07/17 08:14 Respiratory Rate 22 12/07/17 09:00 Blood Pressure 139/70 12/07/17 08:14 O2 Sat by Pulse Oximetry (%) 98 12/07/17 09:00 Constitutional: Yes: Well Nourished, No Distress, Calm Cardiovascular: Yes: Regular Rate and Rhythm. No: Gallop, Murmur Respiratory: Yes: Regular (decr sounds diffusely), Wheezes (faint anteriorly ( danielle vest on)). No: Rales Extremities: No: Cold Edema: No Neurological: Yes: Alert. No: Seizure Psychiatric: No: Agitated Labs: CBC, BMP 12/05/17 05:43 12/07/17 05:35 INR, PTT INR 0.98 (0.82-1.09) 12/03/17 11:00 - ....Imaging EKG: Other (tele: NSR (HR 90s)) Assessment/Plan ekg; sinus tach, 135 bpm. non-specific t wave abnormality. no acute ischemic changes. cxr: report reviewed "some coarse base changes". images reviewed no chf Echo 12/20: nl LVSF, no RWMA seen (tds images). nl RV. nl LA. valve fxn WNL. trivial peric eff a/p: 82 y/o smoker with no known PMH (No PCP or medical care in years) p/w fever , myalgias and cough and found to have flu. Er course notable for tachycardia and intermediate troponin elevation. flu, acute resp distress - decr airflow on exam today, pt admits to h/o airways dz (? reliable historian) . tachycardic and tachypneic. - steroids and aggressive BDs per pulm/crit care - no signs of HF on exam sinus tachycardia - worsened 2/3 likely sec to worsening resp distress, ? steroid effect - started moderate dose diltiazem for HR and BP control, given pt's clinical status is becoming tenuous (60 TID). defer BB (wheezing/ongoing obstructive airways process)--HR and BP much better - f/u and mgmt of low TSH per hospitalist HTN: - bp elevated likely due to worsening respiratory distress - controlled now, with improved resp sx's and diltiazem intermediate troponin elevation - borderline levels, flat trend (0.1 x4), not c/w acs - no signs of chf - normal LVSF on echo - no further w/u indicated in absence of CAD sx's + tobacco/etoh/intermittent heroin - cessation counseled here. elevated LFTs: - ? viral syndrome related - gradually improving - per hospitalist
[2017-12-07 10:16] LABS: CHOLESTEROL 151 mg/dL (50-200); HDL CHOLESTEROL 33 mg/dL (40-60); LDL CHOLESTEROL (ONLY SJRH) 107 mg/dL (5-100); TRIGLYCERIDES 107 mg/dL (35-160)
[2017-12-07] MEDS: INSULIN SLIDING SCALE (NOVOLOG) 1 VIAL SQ SCH ×3 (11:49→22:41)
--- NOTE | 2017-12-07 14:38 | PN ---
Progress Note (short form) - Note Progress Note: Breathing appears better today. Still mildly tachypneic at rest, but now on NC O2. Denies CP. Congested cough. Intake & Output 12/04/17 12/05/17 12/06/17 12/07/17 23:59 23:59 23:59 23:59 Intake Total 1999 100 200 30 Output Total 300 400 Balance 2000 -200 200 -370 Last Vital Signs Temp Pulse Resp BP Pulse Ox 98 F 92 H 22 138/87 98 12/07/17 14:05 12/07/17 14:05 12/07/17 14:05 12/07/17 14:05 12/07/17 09:00 Active Medications Acetaminophen (Tylenol -) 650 mg PO Q6H PRN PRN Reason: FEVER Albuterol/Ipratropium (Duoneb -) 1 amp NEB Q4HPO [facility] Last Admin: 12/07/17 14:28 Dose: 1 amp Aspirin (Ecotrin -) 81 mg PO DAILY [facility] Last Admin: 12/07/17 09:14 Dose: 81 mg Budesonide/Formoterol Fumarate (Symbicort 160/4.5mcg -) 1 puff IH BID [facility] Last Admin: 12/07/17 09:14 Dose: 1 puff Diltiazem HCl (Cardizem -) 60 mg PO TID [facility] Last Admin: 12/07/17 13:44 Dose: 60 mg Enoxaparin Sodium (Lovenox -) 40 mg SQ DAILY [facility] Last Admin: 12/07/17 09:14 Dose: 40 mg Insulin Aspart (Novolog Vial Sliding Scale -) 1 vial SQ ACHS [facility] PRN Reason: Protocol Last Admin: 12/07/17 11:49 Dose: Not Given Methimazole (Tapazole -) 10 mg PO DAILY [facility] Last Admin: 12/07/17 09:16 Dose: 10 mg Methylprednisolone Sodium Succinate (Solu-Medrol -) 60 mg IVPUSH Q6H-IV [facility] Last Admin: 12/07/17 09:13 Dose: 60 mg Nystatin (Nystatin Oral Suspension -) 500,000 units PO Q6HPO [facility] Last Admin: 12/07/17 12:25 Dose: 500,000 units Oseltamivir Phosphate (Tamiflu -) 75 mg PO BID [facility] Stop: 12/08/17 13:44 Last Admin: 12/07/17 09:15 Dose: 75 mg Constitutional: Yes: Mildly tachypneic at rest Eyes: Yes: Conjunctiva Clear, EOM Intact HENT: Yes: Atraumatic, Normocephalic Neck: Yes: Supple, Trachea Midline Cardiovascular: Yes: Tachycardia Respiratory: Yes: Diminished (distant breath sounds), Scattered Rhonchi ...Clubbing: No Gastrointestinal: Yes: Normal Bowel Sounds, Soft. No: Tenderness Edema: No Neurological: Yes: Alert Labs: Laboratory Results - last 24 hr 12/07/17 12/07/17 12/07/17 05:10 05:10 05:35 Sodium 146 H Potassium 4.0 Chloride 105 Carbon Dioxide 35 H Anion Gap 6 L BUN 22 H Creatinine 0.6 L D Creat Clearance w eGFR > 60 Random Glucose 177 H Hemoglobin A1c % 6.2 H Calcium 8.5 Total Bilirubin 0.5 AST 132 H ALT 123 H Alkaline Phosphatase 53 Total Protein 6.2 L Albumin 2.9 L Triglycerides Cancelled 107 Cholesterol Cancelled 151 Total LDL Cholesterol Cancelled 107 H HDL Cholesterol Cancelled 33 L Problem List - Problems (1) Acute respiratory failure with hypoxia Code(s): J96.01 - ACUTE RESPIRATORY FAILURE WITH HYPOXIA (2) Influenza A Code(s): J10.1 - FLU DUE TO OTH IDENT INFLUENZA VIRUS W OTH RESP MANIFEST (3) Elevated liver enzymes Code(s): R74.8 - ABNORMAL LEVELS OF OTHER SERUM ENZYMES (4) Elevated troponin Code(s): R74.8 - ABNORMAL LEVELS OF OTHER SERUM ENZYMES (5) Lactic acidosis Code(s): E87.2 - ACIDOSIS (6) COPD with acute exacerbation Code(s): J44.1 - CHRONIC OBSTRUCTIVE PULMONARY DISEASE W (ACUTE) EXACERBATION Assessment/Plan Acute Hypoxic Respiratory Failure Acute COPD Exacerbation Influenza A +Troponins likely Demand Ischemia Elevated LFTs Smoker - IV Medrol - inhaled bronchodilators standing and PRN - Tamiflu - O2 to keep Spo2 >90% - DVT prophylaxis Dr Edwards
[2017-12-07] MEDS ORDERED: INSULIN (NOVOLOG) ASPART 100 UNITS/ML 10ML VIAL ONE ×2 (17:23→17:45)
[2017-12-07 21:49] LABS: ALLENS TEST POSITIVE
[2017-12-08] MEDS: NYSTATIN 500,000 UNITS/5 ML SUSPENSION PO SCH ×4 (01:39→17:53)
[2017-12-08] MEDS: methylPREDNISolone NA SUCC 125 MG/2 ML VIAL IVPUSH SCH ×4 (02:14→21:34)
[2017-12-08] MEDS: ALBUTEROL SO4 2.5/IPRATROPIUM 0.5 INH SOL 3 ML VIAL.NEB. NEB SCH ×6 (02:30→21:10)
[2017-12-08] MEDS: dilTIAZem HCL 60 MG TABLET (FP) PO SCH ×3 (05:19→21:36)
[2017-12-08 06:08] LABS: BASO % 0.1 % (0-2.0); HEMATOCRIT 43.2 % (35.4-49); HEMOGLOBIN 14.2 GM/dL (11.7-16.9); LYMPH % 3.5 % (8-40); MCH 30.2 pg (25.7-33.7); MCHC 32.8 g/dl (32.0-35.9); MEAN CELL VOLUME 92.2 fl (80-96); MEAN PLT VOLUME 9.1 fl (7.5-11.1); MONO % 7.5 % (3.8-10.2); NEUT % 88.9 % (42.8-82.8); PLATELET COUNT 255 K/MM3 (134-434); RBC 4.68 M/mm3 (4.00-5.60); RDW 14.3 % (11.9-15.9); WHITE BLOOD COUNT 9.6 K/mm3 (4.0-10.0)
[2017-12-08 06:29] LABS: ALBUMIN 2.8 g/dl (3.4-5.0); ANION GAP 4 (8-16); BLOOD UREA NITROGEN 21 mg/dL (7-18); CALCIUM 8.5 mg/dL (8.5-10.1); CHLORIDE 101 mmol/L (98-107); CO2 36 mmol/L (21-32); GLUCOSE,RANDOM 218 mg/dL (74-106); MAGNESIUM 2.2 mg/dL (1.8-2.4); POTASSIUM 4.2 mmol/L (3.5-5.1); SODIUM 141 mmol/L (136-145)
[2017-12-08 06:32] LABS: ALK PHOS 52 U/L (45-117); BILIRUBIN,TOTAL 0.5 mg/dL (0.2-1.0); CREATININE 0.7 mg/dL (0.7-1.3); SGOT/AST 178 U/L (15-37); SGPT/ALT 183 U/L (12-78); TOT PROT 6.1 g/dl (6.4-8.2)
[2017-12-08] MEDS: INSULIN SLIDING SCALE (NOVOLOG) 1 VIAL SQ SCH ×4 (07:25→21:35)
[2017-12-08] MEDS ORDERED: PT OWN MED DRAWER 7, Y5N ONE (07:42)
--- NOTE | 2017-12-08 08:56 | PN ---
Physical Exam: SUBJECTIVE: Patient seen and examined. Denies chest pain OBJECTIVE: Still with labored breathing, accessory muscle use, no improvement since yesterday mental status at baseline ABG now May need trial of bipap ALT/AST trending up, will order hepatic u/s once pt more stable, denies any RUQ pain, denies nausea or vomiting ID consult for possible antbx as pt not improving, no wbc however, no fevers: may need HIV workup Vital Signs Period Temp Pulse Resp BP Sys/Luke Pulse Ox Last 24 Hr 98 F-98.7 F 77-97 20-22 121-156/66-87 98-98 GENERAL: The patient is awake, alert, and fully oriented, in moderate respiratory distress. HEAD: Normal with no signs of trauma. EYES: PERRL, extraocular movements intact, sclera anicteric, conjunctiva clear. No ptosis. ENT: Ears normal, nares patent, oropharynx clear without exudates, moist mucous membranes. NECK: Trachea midline, full range of motion, supple. LUNGS: diminished breath sounds bilaterally, on 4 liters of nasal cannula, dyspnea at rest, + expiratory wheezing HEART: tachycardia 108 ABDOMEN: Soft, nontender, nondistended, normoactive bowel sounds, no guarding, no rebound, no hepatosplenomegaly, no masses. EXTREMITIES:trace bilateral lowe ext edema NEUROLOGICAL: conversational dyspnea PSYCH: Normal mood, normal affect. SKIN: Warm, dry, normal turgor, no rashes or lesions noted Laboratory Results - last 24 hr 12/06/17 12/07/17 12/07/17 11:45 05:10 05:10 WBC RBC Hgb Hct MCV MCH MCHC RDW Plt Count MPV Neutrophils % Lymphocytes % Monocytes % Eosinophils % Basophils % Sher Test Positive Sodium Potassium Chloride Carbon Dioxide Anion Gap BUN Creatinine Creat Clearance w eGFR POC Glucometer Random Glucose Hemoglobin A1c % 6.2 H Calcium Magnesium Total Bilirubin AST ALT Alkaline Phosphatase Total Protein Albumin Triglycerides Cancelled Cholesterol Cancelled Total LDL Cholesterol Cancelled HDL Cholesterol Cancelled 12/07/17 12/07/17 12/08/17 05:35 15:12 05:30 WBC 9.6 D RBC 4.68 Hgb 14.2 Hct 43.2 MCV 92.2 MCH 30.2 MCHC 32.8 RDW 14.3 Plt Count 255 MPV 9.1 Neutrophils % 88.9 H Lymphocytes % 3.5 L D Monocytes % 7.5 Eosinophils % 0.0 Basophils % 0.1 Sher Test Sodium 146 H Potassium 4.0 Chloride 105 Carbon Dioxide 35 H Anion Gap 6 L BUN 22 H Creatinine 0.6 L D Creat Clearance w eGFR > 60 POC Glucometer 223 Random Glucose 177 H Hemoglobin A1c % Calcium 8.5 Magnesium Total Bilirubin 0.5 AST 132 H ALT 123 H Alkaline Phosphatase 53 Total Protein 6.2 L Albumin 2.9 L Triglycerides 107 Cholesterol 151 Total LDL Cholesterol 107 H HDL Cholesterol 33 L 12/08/17 05:30 WBC RBC Hgb Hct MCV MCH MCHC RDW Plt Count MPV Neutrophils % Lymphocytes % Monocytes % Eosinophils % Basophils % Sher Test Sodium 141 Potassium 4.2 Chloride 101 Carbon Dioxide 36 H Anion Gap 4 L BUN 21 H Creatinine 0.7 Creat Clearance w eGFR > 60 POC Glucometer Random Glucose 218 H D Hemoglobin A1c % Calcium 8.5 Magnesium 2.2 Total Bilirubin 0.5 AST 178 H D ALT 183 H D Alkaline Phosphatase 52 Total Protein 6.1 L Albumin 2.8 L Triglycerides Cholesterol Total LDL Cholesterol HDL Cholesterol Active Medications Generic Name Dose Route Start Last Admin Trade Name Freq PRN Reason Stop Dose Admin Albuterol/Ipratropium 1 amp 12/03/17 22:00 12/08/17 06:24 Duoneb - NEB Not Given Q4HPO EDDIE Aspirin 81 mg 12/04/17 10:00 12/07/17 09:14 Ecotrin - PO 81 mg DAILY EDDIE Administration Budesonide/Formoterol Fumarate 1 puff 12/05/17 22:00 12/07/17 21:34 Symbicort 160/4.5mcg - IH 1 puff BID EDDIE Administration Diltiazem HCl 60 mg 12/06/17 14:00 12/08/17 05:19 Cardizem - PO 60 mg TID EDDIE Administration Enoxaparin Sodium 40 mg 12/04/17 10:00 12/07/17 09:14 Lovenox - SQ 40 mg DAILY EDDIE Administration Insulin Aspart 1 vial 12/07/17 11:00 12/08/17 07:25 Novolog Vial Sliding Scale - SQ Not Given ACHS [facility] Protocol Methimazole 10 mg 12/05/17 12:30 12/07/17 09:16 Tapazole - PO 10 mg DAILY EDDIE Administration Methylprednisolone Sodium Succinate 60 mg 12/05/17 15:00 12/08/17 08:15 Solu-Medrol - IVPUSH 60 mg Q6H-IV EDDIE Administration Nystatin 500,000 units 12/05/17 12:00 12/08/17 05:19 Nystatin Oral Suspension - PO 500,000 units Q6HPO EDDIE Administration Oseltamivir Phosphate 75 mg 12/03/17 13:45 12/07/17 21:34 Tamiflu - PO 12/08/17 13:44 75 mg BID EDDIE Administration ASSESSMENT/PLAN: Patient is an 82 year old male with no reported past medical history. Patient reports not seeing a physician for many years. He presents to the ED on 2017 with sepsis secondary to complications of Influenza. Imaging: CT chest: bronchial wall thickening throughout with bronchiectasis in both lung bases; small airway disease presumably infectious Echo: LV normal; RV normal; trace to mild MR; mild TR; technically limited study Sepsis: Respiratory Distress 2/2 of influenza A Tachypnea persists, on 4 liters of nasal cannula Lactic acidosis resolved Completed tamiflu Continue on Spiriva, Symbicort Duonebs Monitor respiratory status Maintain 02 @ 90% or better Wean off oxygen as pt stabilizes ID: CT with possible small airway dx presumably infectious ID following, monitor off antibiotics HIV panel ordered/pending Cardiology: Hypertension, elevated today On Cardizem 60mg TID Cardiology following Elevated troponin Trops flat trending Echo noted Cardiology following Sinus tachycardia On Cardizem, oxygen Endocrine: Hyperthyroid Methimazole 10mg daily Hyperglycemia Boderline DM Started on Novolog for elevated BGMs Psyche: Tobacco/Etoh abuse/intermittent heroin Counseling cessation, no signs of withdrawal on exam Denies recent use GI: Transaminitis Monitor trend hep C serology Hepatitis panel Liver ultrasound ordered F.E.N. Fluids: tolerating PO Electrolytes: monitor Nutrition: low sodium Disposition: full code Visit type - Emergency Visit Emergency Visit: Yes ED Registration Date: 12/03/17 Care time: The patient presented to the Emergency Department on the above date and was hospitalized for further evaluation of their emergent condition. - New Patient This patient is new to me today: No - Critical Care Critical Care patient: No - Discharge Referral Referred to [facility] Med P.C.: Yes Physician Referral: Aleksandar Fountain MD ([facility])
[2017-12-08] MEDS ORDERED: LORazepam 0.5 MG TABLET PO PRN (08:57)
--- NOTE | 2017-12-08 09:49 | CON.ID ---
Consult Consult Specialty:: infectious disease Referred by:: hospitalist Reason for Consultation:: continued SOB - History of Present Illness Chief Complaint: 82 year old man admitted 12/03 with bodyaches and cough History of Present Illness: influenza A positive tachycardia with positive troponins no medical care lives with brother in law , has "alot" of kids drinks ETOH just stopped smoking? former substance use no travel no recent immunizations denies weight loss never hospitalized as an adult once as a child fo his ears denies PMH denies surgery - History Source History Provided By: Patient, Medical Record Limitations to Obtaining History: Clinical Condition - Alcohol/Substance Use Hx Alcohol Use: Yes - Smoking History Smoking history: Current some day smoker Have you smoked in the past 12 months: Yes Aproximately how many cigarettes per day: 2 - Social History Usual Living Arrangement: Other (brother in law, patient is ) ADL: Independent Place of : [facility] History of Recent Travel: No Home Medications - Allergies Allergies/Adverse Reactions: Allergies Allergy/AdvReac Type Severity Reaction Status Date / Time No Known Allergies Allergy Verified 12/03/17 10:06 - Home Medications Home Medications: Ambulatory Orders NK [No Known Home Medication] 12/04/17 Family Disease History - Family Disease History Family History: Denies Review of Systems - Review of Systems Constitutional: reports: Fever. denies: Night Sweats, Unintentional Wgt. Loss, Weakness Eyes: reports: No Symptoms HENT: reports: No Symptoms. denies: Difficult Swallowing, Throat Pain Neck: reports: No Symptoms Cardiovascular: denies: Chest Pain, Edema Respiratory: reports: Cough. denies: Hemoptysis Gastrointestinal: reports: No Symptoms. denies: Abdominal Pain Genitourinary: reports: No Symptoms Musculoskeletal: reports: No Symptoms Physical Exam Vital Signs: Vital Signs Temperature 98.4 F 12/08/17 08:55 Pulse Rate 91 H 12/08/17 08:55 Respiratory Rate 20 12/08/17 08:55 Blood Pressure 156/67 12/08/17 08:55 O2 Sat by Pulse Oximetry (%) 98 12/08/17 08:51 Constitutional: Yes: Well Nourished, No Distress, Calm Eyes: Yes: Conjunctiva Clear, EOM Intact HENT: Yes: Atraumatic, Normocephalic. No: Thrush, Tonsillar Exudate Neck: Yes: Supple, Trachea Midline Cardiovascular: Yes: Regular Rate and Rhythm Respiratory: Yes: Regular, Other (decreased bs at bases) Gastrointestinal: Yes: Normal Bowel Sounds, Soft. No: Ascites, Tenderness ...Rectal Exam: Yes: Deferred Renal/: No: CVA Tenderness - Left, CVA Tenderness - Right, [place] Present Extremities: Yes: WNL Edema: No Psychiatric: Yes: Alert, Other (poor historian) Labs: CBC, BMP 12/08/17 05:30 12/08/17 05:30 Microbiology 12/03/17 11:00 Blood - Peripheral Venous Blood Culture - Preliminary NO GROWTH OBTAINED AFTER 96 HOURS, INCUBATION TO CONTINUE FOR 1 DAYS. 12/03/17 10:55 Blood - Peripheral Venous Blood Culture - Preliminary NO GROWTH OBTAINED AFTER 96 HOURS, INCUBATION TO CONTINUE FOR 1 DAYS. 12/04/17 02:30 Urine - Urine Clean Catch Urine Culture - Final NO GROWTH OBTAINED 12/03/17 10:31 Nasopharyngeal Swab Influenza Types A,B Antigen (RIGO) - Final 12/03/17 10:31 Nasopharyngeal Swab - Final Laboratory Tests 12/08/17 05:30 AST 178 H D ALT 183 H D Albumin 2.8 L Imaging - Results Chest X-ray: Report Reviewed, Image Reviewed Cat Scan: Report Reviewed, Image Reviewed Problem List - Problems (1) Influenza A Code(s): J10.1 - FLU DUE TO OTH IDENT INFLUENZA VIRUS W OTH RESP MANIFEST (2) COPD with acute exacerbation Code(s): J44.1 - CHRONIC OBSTRUCTIVE PULMONARY DISEASE W (ACUTE) EXACERBATION (3) Acute respiratory failure with hypoxia Code(s): J96.01 - ACUTE RESPIRATORY FAILURE WITH HYPOXIA (4) Elevated liver enzymes Code(s): R74.8 - ABNORMAL LEVELS OF OTHER SERUM ENZYMES (5) History of substance use Code(s): Z87.898 - PERSONAL HISTORY OF OTHER SPECIFIED CONDITIONS Assessment/Plan 82 year old man no medical care, smoker, former substance user admitted with influenza A- has completed 5 days tamiflu he still is SOB but improved with steroids (longstanding smoker) he is a former substance user- agreeable to HIV testing abnl lfts- repeat CPK, hep C serology, liver sonogram cxray is clear- no need for antibiotics at this time
[2017-12-08] MEDS: OSELTAMIVIR PHOSPHATE 75 MG CAPSULE PO SCH (10:21)
[2017-12-08] MEDS: ENOXAPARIN NA (PORCINE) 40 MG/0.4 ML DISP.SYRIN SQ SCH (10:21)
[2017-12-08] MEDS: ASPIRIN COATED 81 MG TABLET.EC PO SCH (10:21)
[2017-12-08] MEDS: METHIMAZOLE 10 MG TABLET (FP) PO SCH (10:21)
[2017-12-08] MEDS: BUDESONIDE/FORMETEROL FUMARATE 160/4.5 mcg INHALER IH SCH ×2 (10:21→21:35)
--- NOTE | 2017-12-08 11:38 | PN ---
Progress Note (short form) - Note Progress Note: Chief Complaint: sob History of Present Illness: breathing better no cp, palpit, syncope Current Medications Albuterol/Ipratropium (Duoneb -) 1 amp NEB Q4HPO [facility] Last Admin: 12/08/17 06:24 Dose: Not Given Aspirin (Ecotrin -) 81 mg PO DAILY [facility] Last Admin: 12/08/17 10:21 Dose: 81 mg Budesonide/Formoterol Fumarate (Symbicort 160/4.5mcg -) 1 puff IH BID [facility] Last Admin: 12/08/17 10:21 Dose: 1 puff Diltiazem HCl (Cardizem -) 60 mg PO TID [facility] Last Admin: 12/08/17 05:19 Dose: 60 mg Enoxaparin Sodium (Lovenox -) 40 mg SQ DAILY [facility] Last Admin: 12/08/17 10:21 Dose: 40 mg Insulin Aspart (Novolog Vial Sliding Scale -) 1 vial SQ ACHS [facility] PRN Reason: Protocol Last Admin: 12/08/17 07:25 Dose: Not Given Lorazepam (Ativan -) 0.5 mg PO TID PRN PRN Reason: ANXIETY Methimazole (Tapazole -) 10 mg PO DAILY [facility] Last Admin: 12/08/17 10:21 Dose: 10 mg Methylprednisolone Sodium Succinate (Solu-Medrol -) 60 mg IVPUSH Q6H-IV [facility] Last Admin: 12/08/17 08:15 Dose: 60 mg Nystatin (Nystatin Oral Suspension -) 500,000 units PO Q6HPO [facility] Last Admin: 12/08/17 05:19 Dose: 500,000 units Oseltamivir Phosphate (Tamiflu -) 75 mg PO BID [facility] Stop: 12/08/17 13:44 Last Admin: 12/08/17 10:21 Dose: 75 mg - Objective Vital Signs: Vital Signs - 24 hr 12/07/17 12/07/17 12/07/17 14:05 18:00 20:31 Temperature 98 F 98.6 F Pulse Rate 92 H 97 H Respiratory 22 22 Rate Blood Pressure 138/87 121/85 142/77 O2 Sat by Pulse 98 Oximetry (%) 12/08/17 12/08/17 12/08/17 02:00 06:00 08:51 Temperature 98.7 F Pulse Rate 77 88 Respiratory 20 20 20 Rate Blood Pressure 139/66 136/77 O2 Sat by Pulse 98 Oximetry (%) 12/08/17 08:55 Temperature 98.4 F Pulse Rate 91 H Respiratory 20 Rate Blood Pressure 156/67 O2 Sat by Pulse Oximetry (%) Intake & Output 12/06/17 12/07/17 12/08/17 12/09/17 07:59 07:59 07:59 07:59 Intake Total 100 200 100 Output Total 200 400 Balance 100 0 -300 Constitutional: Yes: Well Nourished, No Distress, Calm Cardiovascular: Yes: Regular Rate and Rhythm. No: Gallop, Murmur Respiratory: Yes: Regular (decr sounds diffusely), No wheezes, Rales Extremities: No: Cold Edema: No Neurological: Yes: Alert. No: Seizure Psychiatric: No: Agitated Labs: CBC, BMP 12/08/17 05:30 12/08/17 05:30 - ....Imaging EKG: Other (tele: NSR/sinus tach) Assessment/Plan ekg; sinus tach, 135 bpm. non-specific t wave abnormality. no acute ischemic changes. cxr: report reviewed "some coarse base changes". images reviewed no chf Echo 12/20: nl LVSF, no RWMA seen (tds images). nl RV. nl LA. valve fxn WNL. trivial peric eff a/p: 82 y/o smoker with no known PMH (No PCP or medical care in years) p/w fever , myalgias and cough and found to have flu. Er course notable for tachycardia and intermediate troponin elevation. flu, acute resp distress - decr airflow on exam today, pt admits to h/o airways dz (? reliable historian) . tachycardic and tachypneic. - steroids and aggressive BDs per pulm/crit care - no signs of HF on exam sinus tachycardia - worsened 2/3 likely sec to worsening resp distress, ? steroid effect - started moderate dose diltiazem for HR and BP control, given pt's clinical status is becoming tenuous (60 TID). defer BB (wheezing/ongoing obstructive airways process)--HR and BP much better - f/u and mgmt of low TSH per hospitalist - HR trend improving today, but still ULN. If remains fast tomorrow, consider increasing dose of diltiazem. HTN: - bp elevated likely due to worsening respiratory distress - 2/6 reasonable control. consider uptitration of dilt tomorrow as mentioned above. intermediate troponin elevation - borderline levels, flat trend (0.1 x4), not c/w acs - no signs of chf - normal LVSF on echo - no further w/u indicated in absence of CAD sx's + tobacco/etoh/intermittent heroin - cessation counseled here. elevated LFTs: - ? viral syndrome related - gradually improving - per hospitalist
[2017-12-08] MEDS ORDERED: INSULIN (NOVOLOG) ASPART 100 UNITS/ML 10ML VIAL ONE (11:58)
[2017-12-08 12:23] LABS: ARTERIAL BLD GAS O2 SATURATION 95.2 % (90-98.9); ARTERIAL BLOOD GAS BASE EXCESS 9.4 meq/l (-2-2); ARTERIAL BLOOD GAS PCO2 52.4 mmHg (35-45); ARTERIAL BLOOD GAS PO2 74.1 mmHg (68-100); ARTERIAL BLOOD GAS pH 7.44 (7.35-7.45)
[2017-12-08 12:24] LABS: ALLENS TEST POSITIVE
--- NOTE | 2017-12-08 13:08 | PN ---
Progress Note (short form) - Note Progress Note: Breathing feels a little better today. Still mildly tachypneic at rest, but remains on NC O2. Denies CP. Congested cough. Intake & Output 12/05/17 12/06/17 12/07/17 12/08/17 23:59 23:59 23:59 23:59 Intake Total 100 200 100 0 Output Total 300 400 200 Balance -200 200 -300 -200 Last Vital Signs Temp Pulse Resp BP Pulse Ox 98.4 F 91 H 20 156/67 98 12/08/17 08:55 12/08/17 08:55 12/08/17 08:55 12/08/17 08:55 12/08/17 08:51 Active Medications Albuterol/Ipratropium (Duoneb -) 1 amp NEB Q4HPO [facility] Last Admin: 12/08/17 06:24 Dose: Not Given Aspirin (Ecotrin -) 81 mg PO DAILY [facility] Last Admin: 12/08/17 10:21 Dose: 81 mg Budesonide/Formoterol Fumarate (Symbicort 160/4.5mcg -) 1 puff IH BID [facility] Last Admin: 12/08/17 10:21 Dose: 1 puff Diltiazem HCl (Cardizem -) 60 mg PO TID [facility] Last Admin: 12/08/17 05:19 Dose: 60 mg Enoxaparin Sodium (Lovenox -) 40 mg SQ DAILY [facility] Last Admin: 12/08/17 10:21 Dose: 40 mg Insulin Aspart (Novolog Vial Sliding Scale -) 1 vial SQ ACHS [facility] PRN Reason: Protocol Last Admin: 12/08/17 12:03 Dose: 6 units Lorazepam (Ativan -) 0.5 mg PO TID PRN PRN Reason: ANXIETY Methimazole (Tapazole -) 10 mg PO DAILY [facility] Last Admin: 12/08/17 10:21 Dose: 10 mg Methylprednisolone Sodium Succinate (Solu-Medrol -) 60 mg IVPUSH Q6H-IV [facility] Last Admin: 12/08/17 08:15 Dose: 60 mg Nystatin (Nystatin Oral Suspension -) 500,000 units PO Q6HPO [facility] Last Admin: 12/08/17 12:02 Dose: 500,000 units Oseltamivir Phosphate (Tamiflu -) 75 mg PO BID [facility] Stop: 12/08/17 13:44 Last Admin: 12/08/17 10:21 Dose: 75 mg Constitutional: Yes: Mildly tachypneic at rest Eyes: Yes: Conjunctiva Clear, EOM Intact HENT: Yes: Atraumatic, Normocephalic Neck: Yes: Supple, Trachea Midline Cardiovascular: Yes: Tachycardia Respiratory: Yes: Diminished (distant breath sounds), Scattered Rhonchi ...Clubbing: No Gastrointestinal: Yes: Normal Bowel Sounds, Soft. No: Tenderness Edema: No Neurological: Yes: Alert Labs: Laboratory Results - last 24 hr 12/06/17 12/07/17 12/08/17 11:45 15:12 05:30 WBC 9.6 D RBC 4.68 Hgb 14.2 Hct 43.2 MCV 92.2 MCH 30.2 MCHC 32.8 RDW 14.3 Plt Count 255 MPV 9.1 Neutrophils % 88.9 H Lymphocytes % 3.5 L D Monocytes % 7.5 Eosinophils % 0.0 Basophils % 0.1 Puncture Site ABG pH ABG pCO2 at Pt Temp ABG pO2 at Pt Temp ABG HCO3 ABG O2 Sat (Measured) ABG O2 Content ABG Base Excess Sher Test Positive Oxygen Flow Rate Sodium Potassium Chloride Carbon Dioxide Anion Gap BUN Creatinine Creat Clearance w eGFR POC Glucometer 223 Random Glucose Calcium Magnesium Total Bilirubin AST ALT Alkaline Phosphatase Creatine Kinase Total Protein Albumin HIV 1&2 Antibody Screen HIV P24 Antigen 12/08/17 12/08/17 12/08/17 05:30 10:35 10:35 WBC RBC Hgb Hct MCV MCH MCHC RDW Plt Count MPV Neutrophils % Lymphocytes % Monocytes % Eosinophils % Basophils % Puncture Site ABG pH ABG pCO2 at Pt Temp ABG pO2 at Pt Temp ABG HCO3 ABG O2 Sat (Measured) ABG O2 Content ABG Base Excess Sher Test Oxygen Flow Rate Sodium 141 Potassium 4.2 Chloride 101 Carbon Dioxide 36 H Anion Gap 4 L BUN 21 H Creatinine 0.7 Creat Clearance w eGFR > 60 POC Glucometer Random Glucose 218 H D Calcium 8.5 Magnesium 2.2 Total Bilirubin 0.5 AST 178 H D ALT 183 H D Alkaline Phosphatase 52 Creatine Kinase 69 Total Protein 6.1 L Albumin 2.8 L HIV 1&2 Antibody Screen Negative HIV P24 Antigen Negative 12/08/17 12:20 WBC RBC Hgb Hct MCV MCH MCHC RDW Plt Count MPV Neutrophils % Lymphocytes % Monocytes % Eosinophils % Basophils % Puncture Site Right radial ABG pH 7.44 ABG pCO2 at Pt Temp 52.4 H ABG pO2 at Pt Temp 74.1 D ABG HCO3 35.1 H ABG O2 Sat (Measured) 95.2 ABG O2 Content 19.0 ABG Base Excess 9.4 H Sher Test Positive Oxygen Flow Rate Yes Sodium Potassium Chloride Carbon Dioxide Anion Gap BUN Creatinine Creat Clearance w eGFR POC Glucometer Random Glucose Calcium Magnesium Total Bilirubin AST ALT Alkaline Phosphatase Creatine Kinase Total Protein Albumin HIV 1&2 Antibody Screen HIV P24 Antigen Problem List - Problems (1) Acute respiratory failure with hypoxia Code(s): J96.01 - ACUTE RESPIRATORY FAILURE WITH HYPOXIA (2) Influenza A Code(s): J10.1 - FLU DUE TO OTH IDENT INFLUENZA VIRUS W OTH RESP MANIFEST (3) Elevated liver enzymes Code(s): R74.8 - ABNORMAL LEVELS OF OTHER SERUM ENZYMES (4) Elevated troponin Code(s): R74.8 - ABNORMAL LEVELS OF OTHER SERUM ENZYMES (5) Lactic acidosis Code(s): E87.2 - ACIDOSIS (6) COPD with acute exacerbation Code(s): J44.1 - CHRONIC OBSTRUCTIVE PULMONARY DISEASE W (ACUTE) EXACERBATION Assessment/Plan Acute Hypoxic Respiratory Failure Acute COPD Exacerbation Influenza A +Troponins likely Demand Ischemia Elevated LFTs Smoker - Taper IV Medrol - inhaled bronchodilators standing and PRN - Tamiflu to complete 5 days - O2 to keep Spo2 >90% - DVT prophylaxis Dr Edwards
[2017-12-09] MEDS: NYSTATIN 500,000 UNITS/5 ML SUSPENSION PO SCH ×4 (00:30→17:58)
[2017-12-09] MEDS: ALBUTEROL SO4 2.5/IPRATROPIUM 0.5 INH SOL 3 ML VIAL.NEB. NEB SCH ×6 (01:43→21:44)
[2017-12-09] MEDS: methylPREDNISolone NA SUCC 125 MG/2 ML VIAL IVPUSH SCH ×3 (03:12→17:58)
[2017-12-09] MEDS: dilTIAZem HCL 60 MG TABLET (FP) PO SCH (05:37)
[2017-12-09] MEDS: INSULIN SLIDING SCALE (NOVOLOG) 1 VIAL SQ SCH ×4 (06:17→21:45)
[2017-12-09 06:27] LABS: HEMATOCRIT 44.6 % (35.4-49); HEMOGLOBIN 14.9 GM/dL (11.7-16.9); LYMPH % 2.8 % (8-40); MCH 30.5 pg (25.7-33.7); MCHC 33.3 g/dl (32.0-35.9); MEAN CELL VOLUME 91.8 fl (80-96); MEAN PLT VOLUME 9.3 fl (7.5-11.1); MONO % 3.8 % (3.8-10.2); NEUT % 93.4 % (42.8-82.8); PLATELET COUNT 285 K/MM3 (134-434); RBC 4.86 M/mm3 (4.00-5.60); RDW 13.8 % (11.9-15.9); WHITE BLOOD COUNT 10.8 K/mm3 (4.0-10.0)
[2017-12-09 07:35] LABS: ALBUMIN 2.7 g/dl (3.4-5.0); ANION GAP 6 (8-16); BILIRUBIN,TOTAL 0.7 mg/dL (0.2-1.0); BLOOD UREA NITROGEN 22 mg/dL (7-18); CALCIUM 8.4 mg/dL (8.5-10.1); CHLORIDE 100 mmol/L (98-107); CO2 34 mmol/L (21-32); CREATININE 0.7 mg/dL (0.7-1.3); GLUCOSE,RANDOM 220 mg/dL (74-106); MAGNESIUM 2.2 mg/dL (1.8-2.4); POTASSIUM 4.5 mmol/L (3.5-5.1); SGOT/AST 185 U/L (15-37); SGPT/ALT 241 U/L (12-78); SODIUM 140 mmol/L (136-145); TOT PROT 6.1 g/dl (6.4-8.2)
[2017-12-09 07:36] LABS: ALK PHOS 53 U/L (45-117)
--- NOTE | 2017-12-09 08:10 | PN ---
Physical Exam: SUBJECTIVE: Patient seen and examined. He denies fatigue, cough, says improved, however still purses lips with deep breaths. Remains tachypneic OBJECTIVE: Vital Signs Period Temp Pulse Resp BP Sys/Luke Pulse Ox Last 24 Hr 98.2 F-98.7 F 90-110 18-22 141-156/56-72 98-99 PE Neuro: alert, awake, cn 2-12intact Pulm: distant, no wheezing + NC CV: s1 s2 tachycardia Abd: s nt nd + bs Ext: Warm, no le edema Laboratory Results - last 24 hr 12/09/17 12/09/17 06:10 06:10 WBC 10.8 H RBC 4.86 Hgb 14.9 Hct 44.6 MCV 91.8 MCH 30.5 MCHC 33.3 RDW 13.8 Plt Count 285 MPV 9.3 Neutrophils % 93.4 H Lymphocytes % 2.8 L Monocytes % 3.8 Eosinophils % 0.0 Basophils % 0.0 Puncture Site ABG pH ABG pCO2 at Pt Temp ABG pO2 at Pt Temp ABG HCO3 ABG O2 Sat (Measured) ABG O2 Content ABG Base Excess Sher Test Oxygen Flow Rate Sodium 140 Potassium 4.5 Chloride 100 Carbon Dioxide 34 H Anion Gap 6 L BUN 22 H Creatinine 0.7 Creat Clearance w eGFR > 60 Random Glucose 220 H Calcium 8.4 L Magnesium 2.2 Total Bilirubin 0.7 D AST 185 H ALT 241 H D Alkaline Phosphatase 53 Creatine Kinase Total Protein 6.1 L Albumin 2.7 L HIV 1&2 Antibody Screen HIV P24 Antigen Active Medications Generic Name Dose Route Start Last Admin Trade Name Ronaldo PRN Reason Stop Dose Admin Albuterol/Ipratropium 1 amp 12/03/17 22:00 12/09/17 06:50 Duoneb - NEB 1 amp Q4HPO [facility] Administration Aspirin 81 mg 12/04/17 10:00 12/08/17 10:21 Ecotrin - PO 81 mg DAILY [facility] Administration Budesonide/Formoterol Fumarate 1 puff 12/05/17 22:00 12/08/17 21:35 Symbicort 160/4.5mcg - IH 1 puff BID [facility] Administration Diltiazem HCl 60 mg 12/06/17 14:00 12/09/17 05:37 Cardizem - PO 60 mg TID [facility] Administration Enoxaparin Sodium 40 mg 12/04/17 10:00 12/08/17 10:21 Lovenox - SQ 40 mg DAILY [facility] Administration Insulin Aspart 1 vial 12/07/17 11:00 12/09/17 06:17 Novolog Vial Sliding Scale - SQ 6 units ACHS [facility] Administration Protocol Lorazepam 0.5 mg 12/08/17 08:57 Ativan - PO TID PRN ANXIETY Methimazole 10 mg 12/05/17 12:30 12/08/17 10:21 Tapazole - PO 10 mg DAILY [facility] Administration Methylprednisolone Sodium Succinate 40 mg 12/09/17 10:00 Solu-Medrol - IVPUSH Q8H-IV [facility] Nystatin 500,000 units 12/05/17 12:00 12/09/17 05:37 Nystatin Oral Suspension - PO 500,000 units Q6HPO [facility] Administration Assessment: 82 year-old male with no reported PMH. Admitted for sepsis secondary to influenza A. Plan: 1. Influenza A - Completed 5 days Tamiflu - Taper medrol 40mg q8h - Continue spirivia, symbicort - Duonebs [facility] - Pulmonary following 2. Acute hypoxic respiratory failure - Check AM CXR - Check ABG after morning treatment, may benefit from bipap 3. HTN - Controlled - Switch to cardizem cd 180mg daily 4. Lactic acidosis -Resolved 5. Elevated troponin - r/o ACS, trops flat - Cont ASA - No CHF s/x, ECHO above 6. Sinus tachycardia - On cardizem - Likely due to increased work of breathing/steroids 7. Hyperthyroid - Started (2/3) methimazole 10mg daily 6. Tobacco/etoh/intermittent heroin - Cessation counseling done 7. Oral thrush - Continue nystatin s/s (2/3-) 8. Transaminitis - Liver US today 9. DVT prophylaxis - Lovenox sq Visit type - Emergency Visit Emergency Visit: Yes ED Registration Date: 12/03/17 Care time: The patient presented to the Emergency Department on the above date and was hospitalized for further evaluation of their emergent condition. - New Patient This patient is new to me today: No - Critical Care Critical Care patient: No
--- NOTE | 2017-12-09 10:49 | PN ---
Progress Note (short form) - Note Progress Note: no complaints no fevers tachypneic on nasal canulla Vital Signs Period Temp Pulse Resp BP Sys/Luke Pulse Ox Last 24 Hr 98.2 F-98.7 F 90-110 18-22 141-154/56-72 99 cor-rrr lungs decreased bs at bases abd soft,nt ext no edema CBC, BMP 12/09/17 06:10 12/09/17 06:10 Laboratory Tests 12/08/17 12/09/17 05:30 06:10 AST 178 H D 185 H ALT 183 H D 241 H D Albumin 2.8 L Current Medications Albuterol/Ipratropium (Duoneb -) 1 amp NEB Q4HPO [facility] Last Admin: 12/09/17 06:50 Dose: 1 amp Aspirin (Ecotrin -) 81 mg PO DAILY [facility] Last Admin: 12/08/17 10:21 Dose: 81 mg Budesonide/Formoterol Fumarate (Symbicort 160/4.5mcg -) 1 puff IH BID [facility] Last Admin: 12/08/17 21:35 Dose: 1 puff Diltiazem HCl (Cardizem Cd -) 180 mg PO DAILY [facility] Enoxaparin Sodium (Lovenox -) 40 mg SQ DAILY [facility] Last Admin: 12/08/17 10:21 Dose: 40 mg Insulin Aspart (Novolog Vial Sliding Scale -) 1 vial SQ ACHS [facility] PRN Reason: Protocol Last Admin: 12/09/17 06:17 Dose: 6 units Lorazepam (Ativan -) 0.5 mg PO TID PRN PRN Reason: ANXIETY Methimazole (Tapazole -) 10 mg PO DAILY [facility] Last Admin: 12/08/17 10:21 Dose: 10 mg Methylprednisolone Sodium Succinate (Solu-Medrol -) 40 mg IVPUSH Q8H-IV [facility] Nystatin (Nystatin Oral Suspension -) 500,000 units PO Q6HPO [facility] Last Admin: 12/09/17 05:37 Dose: 500,000 units HIV negative a/p influenza A- s/p tamiflu copd- improved with steroids abnl LFTS- history etoh use f/u hep serology, f/u sonogram please call back if needed Problem List - Problems (1) Influenza A Code(s): J10.1 - FLU DUE TO OTH IDENT INFLUENZA VIRUS W OTH RESP MANIFEST (2) COPD with acute exacerbation Code(s): J44.1 - CHRONIC OBSTRUCTIVE PULMONARY DISEASE W (ACUTE) EXACERBATION (3) Acute respiratory failure with hypoxia Code(s): J96.01 - ACUTE RESPIRATORY FAILURE WITH HYPOXIA (4) Elevated liver enzymes Code(s): R74.8 - ABNORMAL LEVELS OF OTHER SERUM ENZYMES (5) History of substance use Code(s): Z87.898 - PERSONAL HISTORY OF OTHER SPECIFIED CONDITIONS
[2017-12-09] MEDS: ASPIRIN COATED 81 MG TABLET.EC PO SCH (11:12)
[2017-12-09] MEDS: METHIMAZOLE 10 MG TABLET (FP) PO SCH (11:12)
[2017-12-09] MEDS: BUDESONIDE/FORMETEROL FUMARATE 160/4.5 mcg INHALER IH SCH ×2 (11:13→21:45)
[2017-12-09] MEDS: ENOXAPARIN NA (PORCINE) 40 MG/0.4 ML DISP.SYRIN SQ SCH (11:13)
--- NOTE | 2017-12-09 11:25 | PN ---
Progress Note (short form) - Note Progress Note: s: feels a little better. mild sob/cough, no cp palps dizzy o: Vital Signs Period Temp Pulse Resp BP Sys/Luke Pulse Ox Last 24 Hr 98.2 F-98.7 F 90-110 18-22 141-154/56-72 99 nad, calm jvd flat, neck supple + diffuse mild wheezes, nl effort rrr nl s1, s2 no mrg. pmi nd. + bs soft nt nd no hsm ext without e/c/c aaox3 no jaundice, diaphoresis Current Medications Generic Name Dose Route Start Last Admin Trade Name Freq PRN Reason Stop Dose Admin Albuterol/Ipratropium 1 amp 12/03/17 22:00 12/09/17 06:50 Duoneb - NEB 1 amp Q4HPO [facility] Administration Aspirin 81 mg 12/04/17 10:00 12/09/17 11:12 Ecotrin - PO 81 mg DAILY [facility] Administration Budesonide/Formoterol Fumarate 1 puff 12/05/17 22:00 12/09/17 11:13 Symbicort 160/4.5mcg - IH 1 puff BID [facility] Administration Diltiazem HCl 180 mg 12/09/17 10:00 12/09/17 11:12 Cardizem Cd - PO 180 mg DAILY [facility] Administration Enoxaparin Sodium 40 mg 12/04/17 10:00 12/09/17 11:13 Lovenox - SQ 40 mg DAILY [facility] Administration Insulin Aspart 1 vial 12/07/17 11:00 12/09/17 06:17 Novolog Vial Sliding Scale - SQ 6 units ACHS [facility] Administration Protocol Lorazepam 0.5 mg 12/08/17 08:57 Ativan - PO TID PRN ANXIETY Methimazole 10 mg 12/05/17 12:30 12/09/17 11:12 Tapazole - PO 10 mg DAILY [facility] Administration Methylprednisolone Sodium Succinate 40 mg 12/09/17 10:00 12/09/17 11:12 Solu-Medrol - IVPUSH 40 mg Q8H-IV [facility] Administration Nystatin 500,000 units 12/05/17 12:00 12/09/17 05:37 Nystatin Oral Suspension - PO 500,000 units Q6HPO [facility] Administration CBC, BMP 12/09/17 06:10 12/09/17 06:10 - ....Imaging EKG: Other (tele: SR/ST) ekg; sinus tach, 135 bpm. non-specific t wave abnormality. no acute ischemic changes. cxr: report reviewed "some coarse base changes". images reviewed no chf Echo 12/20: nl LVSF, no RWMA seen (tds images). nl RV. nl LA. valve fxn WNL. trivial peric eff a/p: 82 y/o smoker with no known PMH (No PCP or medical care in years) p/w fever , myalgias and cough and found to have flu. Er course notable for tachycardia and intermediate troponin elevation. flu, acute resp distress - steroids and aggressive BDs per pulm/crit care - no signs of HF on exam sinus tachycardia - worsened 2/3 likely sec to worsening resp distress, ? steroid effect - started moderate dose diltiazem for HR and BP control. defer BB (wheezing/ ongoing obstructive airways process)--HR and BP much better HTN: -stable intermediate troponin elevation - borderline levels, flat trend (0.1 x4), not c/w acs - no signs of chf - normal LVSF on echo - no further w/u indicated in absence of CAD sx's + tobacco/etoh/intermittent heroin - cessation counseled here. elevated LFTs: - ? viral syndrome related - gradually improving - per hospitalist
--- NOTE | 2017-12-09 17:24 | PN ---
Progress Note (short form) - Note Progress Note: PULMONARY Denies shortness of breath but still visibily tachypneic. Reports abdominal pain but denies nausea, vomiting. Has bowel movements. Last Vital Signs Temp Pulse Resp BP Pulse Ox 99.3 F 95 H 20 107/83 97 12/09/17 13:55 12/09/17 13:55 12/09/17 13:55 12/09/17 13:55 12/09/17 08:00 Intake & Output 12/06/17 12/07/17 12/08/17 12/09/17 23:59 23:59 23:59 23:59 Intake Total 200 100 210 100 Output Total 400 1200 1150 Balance 200 -300 -990 -1050 Gen: tachypneic at rest Heart: RRR Lung: scattered rhonchi Abd: soft, nontender Ext: no edema CBC, BMP 12/09/17 06:10 12/09/17 06:10 Active Medications Albuterol/Ipratropium (Duoneb -) 1 amp NEB Q4HPO [facility] Last Admin: 12/09/17 11:00 Dose: 1 amp Aspirin (Ecotrin -) 81 mg PO DAILY [facility] Last Admin: 12/09/17 11:12 Dose: 81 mg Budesonide/Formoterol Fumarate (Symbicort 160/4.5mcg -) 1 puff IH BID [facility] Last Admin: 12/09/17 11:13 Dose: 1 puff Diltiazem HCl (Cardizem Cd -) 180 mg PO DAILY [facility] Last Admin: 12/09/17 11:12 Dose: 180 mg Enoxaparin Sodium (Lovenox -) 40 mg SQ DAILY [facility] Last Admin: 12/09/17 11:13 Dose: 40 mg Insulin Aspart (Novolog Vial Sliding Scale -) 1 vial SQ ACHS [facility] PRN Reason: Protocol Last Admin: 12/09/17 16:45 Dose: 2 units Lorazepam (Ativan -) 0.5 mg PO TID PRN PRN Reason: ANXIETY Methimazole (Tapazole -) 10 mg PO DAILY [facility] Last Admin: 12/09/17 11:12 Dose: 10 mg Methylprednisolone Sodium Succinate (Solu-Medrol -) 40 mg IVPUSH Q8H-IV [facility] Last Admin: 12/09/17 11:12 Dose: 40 mg Nystatin (Nystatin Oral Suspension -) 500,000 units PO Q6HPO [facility] Last Admin: 12/09/17 12:46 Dose: 500,000 units A/P Acute Hypoxic Respiratory Failure Acute COPD Exacerbation Influenza A +Troponins likely Demand Ischemia Elevated LFTs Smoker - IV medrol - inhaled bronchodilators standing and PRN - completed tamiflu - O2 to keep Spo2 >90% - DVT prophylaxis Problem List - Problems (1) Acute respiratory failure with hypoxia Code(s): J96.01 - ACUTE RESPIRATORY FAILURE WITH HYPOXIA (2) Influenza A Code(s): J10.1 - FLU DUE TO OTH IDENT INFLUENZA VIRUS W OTH RESP MANIFEST (3) Elevated liver enzymes Code(s): R74.8 - ABNORMAL LEVELS OF OTHER SERUM ENZYMES (4) Elevated troponin Code(s): R74.8 - ABNORMAL LEVELS OF OTHER SERUM ENZYMES (5) Lactic acidosis Code(s): E87.2 - ACIDOSIS (6) COPD with acute exacerbation Code(s): J44.1 - CHRONIC OBSTRUCTIVE PULMONARY DISEASE W (ACUTE) EXACERBATION
[2017-12-09] MEDS ORDERED: PT OWN MED DRAWER 7, Y5N ONE (18:13)
[2017-12-10 00:11] LABS: HBSAG SCREEN Negative (Negative); HEP A AB, IGM Negative (Negative); HEP B CORE AB, TOT Positive (Negative)
[2017-12-10] MEDS: NYSTATIN 500,000 UNITS/5 ML SUSPENSION PO SCH ×5 (01:00→21:36)
[2017-12-10] MEDS: methylPREDNISolone NA SUCC 125 MG/2 ML VIAL IVPUSH SCH ×3 (01:20→18:26)
[2017-12-10] MEDS: ALBUTEROL SO4 2.5/IPRATROPIUM 0.5 INH SOL 3 ML VIAL.NEB. NEB SCH ×6 (02:33→20:57)
[2017-12-10 06:28] LABS: HEMATOCRIT 47.3 % (35.4-49); HEMOGLOBIN 15.3 GM/dL (11.7-16.9); MCH 29.8 pg (25.7-33.7); MCHC 32.3 g/dl (32.0-35.9); MEAN CELL VOLUME 92.2 fl (80-96); MEAN PLT VOLUME 9.1 fl (7.5-11.1); PLATELET COUNT 282 K/MM3 (134-434); RBC 5.13 M/mm3 (4.00-5.60); WHITE BLOOD COUNT 16.3 K/mm3 (4.0-10.0)
[2017-12-10] MEDS: INSULIN SLIDING SCALE (NOVOLOG) 1 VIAL SQ SCH ×4 (06:38→22:34)
[2017-12-10 06:59] LABS: ALBUMIN 2.8 g/dl (3.4-5.0); ANION GAP 4 (8-16); BLOOD UREA NITROGEN 27 mg/dL (7-18); CALCIUM 8.9 mg/dL (8.5-10.1); CHLORIDE 101 mmol/L (98-107); CO2 37 mmol/L (21-32); GLUCOSE,RANDOM 157 mg/dL (74-106); POTASSIUM 4.6 mmol/L (3.5-5.1); SGOT/AST 141 U/L (15-37); SGPT/ALT 235 U/L (12-78); SODIUM 142 mmol/L (136-145)
[2017-12-10 07:02] LABS: ALK PHOS 55 U/L (45-117); BILIRUBIN,TOTAL 0.7 mg/dL (0.2-1.0); CREATININE 0.7 mg/dL (0.7-1.3); TOT PROT 6.1 g/dl (6.4-8.2)
--- NOTE | 2017-12-10 08:47 | PN ---
Physical Exam: SUBJECTIVE: Patient seen and examined. He appears improved and breathing less labored, tachypnea lessened. OBJECTIVE: Vital Signs Period Temp Pulse Resp BP Sys/Luke Pulse Ox Last 24 Hr 97.5 F-99.3 F 95-115 18-20 107-160/66-97 96 PE Neuro: alert, awake, cn 2-12intact Pulm: basilar crackles, + NC, tachypnea improved CV: s1 s2 tachycardia Abd: s nt nd + bs Ext: Warm, no le edema +DP pulses Laboratory Results - last 24 hr 12/08/17 12/09/17 12/10/17 05:30 21:25 05:40 WBC 16.3 H D RBC 5.13 Hgb 15.3 Hct 47.3 MCV 92.2 MCH 29.8 MCHC 32.3 RDW 14.0 Plt Count 282 MPV 9.1 Sodium Potassium Chloride Carbon Dioxide Anion Gap BUN Creatinine Creat Clearance w eGFR POC Glucometer 229.93106 Random Glucose Calcium Total Bilirubin AST ALT Alkaline Phosphatase Total Protein Albumin Hep A IgM Ab Confirm Negative Hepatitis A Ab Total Positive H Hep Bs Antigen Negative Hep Bs Antibody Non reactive Hep B Core Total Ab Positive H 12/10/17 12/10/17 05:40 06:29 WBC RBC Hgb Hct MCV MCH MCHC RDW Plt Count MPV Sodium 142 Potassium 4.6 Chloride 101 Carbon Dioxide 37 H Anion Gap 4 L BUN 27 H D Creatinine 0.7 Creat Clearance w eGFR > 60 POC Glucometer 150 Random Glucose 157 H D Calcium 8.9 Total Bilirubin 0.7 AST 141 H D ALT 235 H Alkaline Phosphatase 55 Total Protein 6.1 L Albumin 2.8 L Hep A IgM Ab Confirm Hepatitis A Ab Total Hep Bs Antigen Hep Bs Antibody Hep B Core Total Ab Active Medications Generic Name Dose Route Start Last Admin Trade Name Freq PRN Reason Stop Dose Admin Albuterol/Ipratropium 1 amp 12/03/17 22:00 12/10/17 06:42 Duoneb - NEB 1 amp Q4HPO HERBERTH Administration Aspirin 81 mg 12/04/17 10:00 12/09/17 11:12 Ecotrin - PO 81 mg DAILY HERBERTH Administration Budesonide/Formoterol Fumarate 1 puff 12/05/17 22:00 12/09/17 21:45 Symbicort 160/4.5mcg - IH 1 puff BID HERBERTH Administration Diltiazem HCl 180 mg 12/09/17 10:00 12/09/17 11:12 Cardizem Cd - PO 180 mg DAILY HERBERTH Administration Enoxaparin Sodium 40 mg 12/04/17 10:00 12/09/17 11:13 Lovenox - SQ 40 mg DAILY HERBERTH Administration Insulin Aspart 1 vial 12/07/17 11:00 12/10/17 06:38 Novolog Vial Sliding Scale - SQ Not Given ACHS HERBERTH Protocol Lorazepam 0.5 mg 12/08/17 08:57 Ativan - PO TID PRN ANXIETY Methimazole 10 mg 12/05/17 12:30 12/09/17 11:12 Tapazole - PO 10 mg DAILY HERBERTH Administration Methylprednisolone Sodium Succinate 40 mg 12/09/17 10:00 12/10/17 01:20 Solu-Medrol - IVPUSH 40 mg Q8H-IV HERBERTH Administration Nystatin 500,000 units 12/05/17 12:00 12/10/17 05:51 Nystatin Oral Suspension - PO 500,000 units Q6HPO HERBERTH Administration Assessment: 82 year-old male with no reported PMH. Admitted for sepsis secondary to influenza A. Plan: 1. Influenza A - Completed 5 days Tamiflu - Medrol 40mg q8h, taper BID tomorrow - Continue spirivia, symbicort - Duonebs herberth - Pulmonary following 2. Acute hypoxic respiratory failure - Improve today, stable on NC - CXR done 3. HTN - Controlled - Cardizem cd 180mg daily 4. Lactic acidosis -Resolved 5. Elevated troponin - r/o ACS, trops flat - Cont ASA - No CHF s/x, ECHO above 6. Sinus tachycardia - On cardizem - Likely due to increased work of breathing/steroids 7. Hyperthyroid - Started (2/3) methimazole 10mg daily 6. Tobacco/etoh/intermittent heroin - Cessation counseling done 7. Oral thrush - Continue nystatin s/s (2/3-) 8. Transaminitis - LFT's down trending - Liver US negative for acute pathology 9. DVT prophylaxis - Lovenox sq Visit type - Emergency Visit Emergency Visit: Yes ED Registration Date: 12/03/17 Care time: The patient presented to the Emergency Department on the above date and was hospitalized for further evaluation of their emergent condition. - New Patient This patient is new to me today: Yes Date on this admission: 12/10/17 - Critical Care Critical Care patient: No
[2017-12-10] MEDS ORDERED: PT OWN MED DRAWER 7, Y5N ONE (10:00)
[2017-12-10] MEDS: ENOXAPARIN NA (PORCINE) 40 MG/0.4 ML DISP.SYRIN SQ SCH (10:02)
[2017-12-10] MEDS: METHIMAZOLE 10 MG TABLET (FP) PO SCH (10:03)
[2017-12-10] MEDS: BUDESONIDE/FORMETEROL FUMARATE 160/4.5 mcg INHALER IH SCH ×2 (10:03→21:36)
[2017-12-10] MEDS: ASPIRIN COATED 81 MG TABLET.EC PO SCH (10:05)
--- NOTE | 2017-12-10 10:55 | PN ---
Progress Note (short form) - Note Progress Note: s: feels a little better. mild sob/cough, no cp palps dizzy o: Vital Signs Period Temp Pulse Resp BP Sys/Luke Pulse Ox Last 24 Hr 97.5 F-99.3 F 95-109 18-20 107-160/66-97 96 nad, calm jvd flat, neck supple + diffuse mild wheezes, nl effort rrr nl s1, s2 no mrg. pmi nd. + bs soft nt nd no hsm ext without e/c/c aaox3 no jaundice, diaphoresis Current Medications Generic Name Dose Route Start Last Admin Trade Name Freq PRN Reason Stop Dose Admin Albuterol/Ipratropium 1 amp 12/10/17 09:44 12/10/17 08:30 Duoneb - NEB 1 amp 0400,0800,1200,2000 EDDIE Administration Aspirin 81 mg 12/04/17 10:00 12/10/17 10:05 Ecotrin - PO 81 mg DAILY EDDIE Administration Budesonide/Formoterol Fumarate 1 puff 12/05/17 22:00 12/10/17 10:03 Symbicort 160/4.5mcg - IH 1 puff BID EDDIE Administration Diltiazem HCl 180 mg 12/09/17 10:00 12/10/17 10:02 Cardizem Cd - PO 180 mg DAILY EDDIE Administration Enoxaparin Sodium 40 mg 12/04/17 10:00 12/10/17 10:02 Lovenox - SQ 40 mg DAILY EDDIE Administration Insulin Aspart 1 vial 12/07/17 11:00 12/10/17 06:38 Novolog Vial Sliding Scale - SQ Not Given ACHS EDDIE Protocol Lorazepam 0.5 mg 12/08/17 08:57 Ativan - PO TID PRN ANXIETY Methimazole 10 mg 12/05/17 12:30 12/10/17 10:03 Tapazole - PO 10 mg DAILY EDDIE Administration Methylprednisolone Sodium Succinate 40 mg 12/09/17 10:00 12/10/17 10:03 Solu-Medrol - IVPUSH 40 mg Q8H-IV EDDIE Administration Nystatin 500,000 units 12/05/17 12:00 12/10/17 05:51 Nystatin Oral Suspension - PO 500,000 units Q6HPO EDDIE Administration CBC, BMP 12/10/17 05:40 12/10/17 05:40 - ....Imaging EKG: Other (tele: SR/ST) ekg; sinus tach, 135 bpm. non-specific t wave abnormality. no acute ischemic changes. cxr: report reviewed "some coarse base changes". images reviewed no chf Echo 12/20: nl LVSF, no RWMA seen (tds images). nl RV. nl LA. valve fxn WNL. trivial peric eff a/p: 82 y/o smoker with no known PMH (No PCP or medical care in years) p/w fever , myalgias and cough and found to have flu. Er course notable for tachycardia and intermediate troponin elevation. flu, acute resp distress - steroids and aggressive BDs per pulm/crit care - no signs of HF on exam sinus tachycardia - worsened 2/3 likely sec to worsening resp distress, ? steroid effect - started moderate dose diltiazem for HR and BP control. defer BB (wheezing/ ongoing obstructive airways process)--HR and BP better HTN: -stable intermediate troponin elevation - borderline levels, flat trend (0.1 x4), not c/w acs - no signs of chf - normal LVSF on echo - no further w/u indicated in absence of CAD sx's + tobacco/etoh/intermittent heroin - cessation counseled here. elevated LFTs: - ? viral syndrome related - gradually improving - per hospitalist dc tele
--- NOTE | 2017-12-10 13:51 | PN ---
Progress Note (short form) - Note Progress Note: Breathing feels a little better today. Still mildly tachypneic at rest, but remains on NC O2. Denies CP. Less congested cough. Intake & Output 12/07/17 12/08/17 12/09/17 12/10/17 23:59 23:59 23:59 23:59 Intake Total 100 210 200 Output Total 400 1200 1150 600 Balance -300 -990 -950 -600 Last Vital Signs Temp Pulse Resp BP Pulse Ox 98.8 F 110 H 20 133/86 96 12/10/17 13:00 12/10/17 13:00 12/10/17 13:00 12/10/17 13:00 12/09/17 21:00 Active Medications Albuterol/Ipratropium (Duoneb -) 1 amp NEB 0400,0800,1200,2000 [facility] Last Admin: 12/10/17 08:30 Dose: 1 amp Aspirin (Ecotrin -) 81 mg PO DAILY [facility] Last Admin: 12/10/17 10:05 Dose: 81 mg Budesonide/Formoterol Fumarate (Symbicort 160/4.5mcg -) 1 puff IH BID [facility] Last Admin: 12/10/17 10:03 Dose: 1 puff Diltiazem HCl (Cardizem Cd -) 180 mg PO DAILY [facility] Last Admin: 12/10/17 10:02 Dose: 180 mg Enoxaparin Sodium (Lovenox -) 40 mg SQ DAILY [facility] Last Admin: 12/10/17 10:02 Dose: 40 mg Insulin Aspart (Novolog Vial Sliding Scale -) 1 vial SQ ACHS [facility] PRN Reason: Protocol Last Admin: 12/10/17 06:38 Dose: Not Given Lorazepam (Ativan -) 0.5 mg PO TID PRN PRN Reason: ANXIETY Methimazole (Tapazole -) 10 mg PO DAILY [facility] Last Admin: 12/10/17 10:03 Dose: 10 mg Methylprednisolone Sodium Succinate (Solu-Medrol -) 40 mg IVPUSH Q8H-IV [facility] Last Admin: 12/10/17 10:03 Dose: 40 mg Nystatin (Nystatin Oral Suspension -) 500,000 units PO Q6HPO [facility] Last Admin: 12/10/17 05:51 Dose: 500,000 units Constitutional: Yes: Mildly tachypneic at rest Eyes: Yes: Conjunctiva Clear, EOM Intact HENT: Yes: Atraumatic, Normocephalic Neck: Yes: Supple, Trachea Midline Cardiovascular: Yes: Tachycardia Respiratory: Yes: Diminished (distant breath sounds), Scattered Rhonchi ...Clubbing: No Gastrointestinal: Yes: Normal Bowel Sounds, Soft. No: Tenderness Edema: No Neurological: Yes: Alert Labs: Laboratory Results - last 24 hr 12/08/17 12/08/17 12/09/17 05:30 10:35 16:44 WBC RBC Hgb Hct MCV MCH MCHC RDW Plt Count MPV Sodium Potassium Chloride Carbon Dioxide Anion Gap BUN Creatinine Creat Clearance w eGFR POC Glucometer 200.69072 Random Glucose Calcium Total Bilirubin AST ALT Alkaline Phosphatase Total Protein Albumin Hep A IgM Ab Confirm Negative Hepatitis A Ab Total Positive H Hep Bs Antigen Negative Hep Bs Antibody Non reactive Hep B Core Total Ab Positive H Hepatitis C Antibody >11.0 12/09/17 12/10/17 12/10/17 21:25 05:40 05:40 WBC 16.3 H D RBC 5.13 Hgb 15.3 Hct 47.3 MCV 92.2 MCH 29.8 MCHC 32.3 RDW 14.0 Plt Count 282 MPV 9.1 Sodium 142 Potassium 4.6 Chloride 101 Carbon Dioxide 37 H Anion Gap 4 L BUN 27 H D Creatinine 0.7 Creat Clearance w eGFR > 60 POC Glucometer 229.75261 Random Glucose 157 H D Calcium 8.9 Total Bilirubin 0.7 AST 141 H D ALT 235 H Alkaline Phosphatase 55 Total Protein 6.1 L Albumin 2.8 L Hep A IgM Ab Confirm Hepatitis A Ab Total Hep Bs Antigen Hep Bs Antibody Hep B Core Total Ab Hepatitis C Antibody 12/10/17 06:29 WBC RBC Hgb Hct MCV MCH MCHC RDW Plt Count MPV Sodium Potassium Chloride Carbon Dioxide Anion Gap BUN Creatinine Creat Clearance w eGFR POC Glucometer 150 Random Glucose Calcium Total Bilirubin AST ALT Alkaline Phosphatase Total Protein Albumin Hep A IgM Ab Confirm Hepatitis A Ab Total Hep Bs Antigen Hep Bs Antibody Hep B Core Total Ab Hepatitis C Antibody Problem List - Problems (1) Acute respiratory failure with hypoxia Code(s): J96.01 - ACUTE RESPIRATORY FAILURE WITH HYPOXIA (2) Influenza A Code(s): J10.1 - FLU DUE TO OTH IDENT INFLUENZA VIRUS W OTH RESP MANIFEST (3) Elevated liver enzymes Code(s): R74.8 - ABNORMAL LEVELS OF OTHER SERUM ENZYMES (4) Elevated troponin Code(s): R74.8 - ABNORMAL LEVELS OF OTHER SERUM ENZYMES (5) Lactic acidosis Code(s): E87.2 - ACIDOSIS (6) COPD with acute exacerbation Code(s): J44.1 - CHRONIC OBSTRUCTIVE PULMONARY DISEASE W (ACUTE) EXACERBATION Assessment/Plan Acute Hypoxic Respiratory Failure Acute COPD Exacerbation Influenza A +Troponins likely Demand Ischemia Elevated LFTs Smoker - Will further taper IV Medrol in the AM if stable/improved - inhaled bronchodilators standing and PRN - Tamiflu has completed 5 days - O2 to keep Spo2 >90% - DVT prophylaxis Dr Edwards
[2017-12-11] MEDS: NYSTATIN 500,000 UNITS/5 ML SUSPENSION PO SCH ×5 (01:29→23:56)
[2017-12-11] MEDS: methylPREDNISolone NA SUCC 125 MG/2 ML VIAL IVPUSH SCH ×2 (01:58→11:11)
[2017-12-11] MEDS: INSULIN SLIDING SCALE (NOVOLOG) 1 VIAL SQ SCH ×4 (07:03→22:02)
[2017-12-11] MEDS: ALBUTEROL SO4 2.5/IPRATROPIUM 0.5 INH SOL 3 ML VIAL.NEB. NEB SCH ×3 (07:48→20:30)
--- NOTE | 2017-12-11 10:41 | PN ---
Progress Note (short form) - Note Progress Note: s: no sob cp palps dizzy o: Vital Signs Period Temp Pulse Resp BP Sys/Luke Pulse Ox Last 24 Hr 98.5 F-98.9 F 82-110 20-20 132-157/59-86 97 nad, calm jvd flat, neck supple cta bl, nl effort rrr nl s1, s2 no mrg. pmi nd. + bs soft nt nd no hsm ext without e/c/c aaox3 no jaundice, diaphoresis Current Medications Generic Name Dose Route Start Last Admin Trade Name Freq PRN Reason Stop Dose Admin Albuterol/Ipratropium 1 amp 12/10/17 09:44 12/11/17 07:48 Duoneb - NEB 1 amp 0400,0800,1200,2000 EDDIE Administration Aspirin 81 mg 12/04/17 10:00 12/10/17 10:05 Ecotrin - PO 81 mg DAILY EDDIE Administration Budesonide/Formoterol Fumarate 1 puff 12/05/17 22:00 12/10/17 21:36 Symbicort 160/4.5mcg - IH 1 puff BID EDDIE Administration Diltiazem HCl 180 mg 12/09/17 10:00 12/10/17 10:02 Cardizem Cd - PO 180 mg DAILY EDDIE Administration Insulin Aspart 1 vial 12/07/17 11:00 12/11/17 07:03 Novolog Vial Sliding Scale - SQ 4 units ACHS EDDIE Administration Protocol Methimazole 10 mg 12/05/17 12:30 12/10/17 10:03 Tapazole - PO 10 mg DAILY EDDIE Administration Methylprednisolone Sodium Succinate 40 mg 12/09/17 10:00 12/11/17 01:58 Solu-Medrol - IVPUSH 40 mg Q8H-IV EDDIE Administration Nystatin 500,000 units 12/05/17 12:00 12/11/17 05:55 Nystatin Oral Suspension - PO 500,000 units Q6HPO EDDIE Administration CBC, BMP 12/10/17 05:40 12/10/17 05:40 EKG: Other (tele: SR) ekg; sinus tach, 135 bpm. non-specific t wave abnormality. no acute ischemic changes. cxr: report reviewed "some coarse base changes". images reviewed no chf Echo 12/20: nl LVSF, no RWMA seen (tds images). nl RV. nl LA. valve fxn WNL. trivial peric eff a/p: 82 y/o smoker with no known PMH (No PCP or medical care in years) p/w fever , myalgias and cough and found to have flu. Er course notable for tachycardia and intermediate troponin elevation. flu, acute resp distress - steroids and BDs per pulm/crit care - no signs of HF sinus tachycardia - worsened 2/3 likely sec to worsening resp distress - started moderate dose diltiazem for HR and BP control. HR and BP better HTN: -stable intermediate troponin elevation - borderline levels, flat trend (0.1 x4), not c/w acs - no signs of chf - normal LVSF on echo - no further w/u indicated in absence of CAD sx's + tobacco/etoh/intermittent heroin - cessation counseled here. elevated LFTs: - ? viral syndrome related - gradually improving - per hospitalist dc tele
[2017-12-11] MEDS: ASPIRIN COATED 81 MG TABLET.EC PO SCH (11:11)
[2017-12-11] MEDS: BUDESONIDE/FORMETEROL FUMARATE 160/4.5 mcg INHALER IH SCH ×2 (11:12→21:29)
[2017-12-11] MEDS ORDERED: PT OWN MED DRAWER 7, Y5N ONE (11:24)
[2017-12-11] MEDS: METHIMAZOLE 10 MG TABLET (FP) PO SCH (11:26)
--- NOTE | 2017-12-11 12:20 | PN ---
Progress Note (short form) - Note Progress Note: Breathing feels OK today. OOB to chair on NC O2. Denies CP. Less congested cough. Intake & Output 12/08/17 12/09/17 12/10/17 12/11/17 23:59 23:59 23:59 23:59 Intake Total 210 200 10 248 Output Total 1200 1150 600 Balance -990 -950 -590 248 Last Vital Signs Temp Pulse Resp BP Pulse Ox 98 F 110 H 20 139/68 96 12/11/17 10:00 12/11/17 10:00 12/11/17 10:00 12/11/17 10:00 12/11/17 09:00 Active Medications Albuterol/Ipratropium (Duoneb -) 1 amp NEB 0400,0800,1200,2000 [facility] Last Admin: 12/11/17 07:48 Dose: 1 amp Aspirin (Ecotrin -) 81 mg PO DAILY [facility] Last Admin: 12/11/17 11:11 Dose: 81 mg Budesonide/Formoterol Fumarate (Symbicort 160/4.5mcg -) 1 puff IH BID [facility] Last Admin: 12/11/17 11:12 Dose: 1 puff Diltiazem HCl (Cardizem Cd -) 180 mg PO DAILY [facility] Last Admin: 12/11/17 11:10 Dose: 180 mg Insulin Aspart (Novolog Vial Sliding Scale -) 1 vial SQ ACHS [facility] PRN Reason: Protocol Last Admin: 12/11/17 07:03 Dose: 4 units Methimazole (Tapazole -) 10 mg PO DAILY [facility] Last Admin: 12/11/17 11:26 Dose: 10 mg Methylprednisolone Sodium Succinate (Solu-Medrol -) 40 mg IVPUSH Q8H-IV [facility] Last Admin: 12/11/17 11:11 Dose: 40 mg Nystatin (Nystatin Oral Suspension -) 500,000 units PO Q6HPO [facility] Last Admin: 12/11/17 11:11 Dose: 500,000 units Constitutional: Yes: Awake and alert, NAD Eyes: Yes: Conjunctiva Clear, EOM Intact HENT: Yes: Atraumatic, Normocephalic Neck: Yes: Supple, Trachea Midline Cardiovascular: Yes: Tachycardia Respiratory: Yes: Diminished at the bases, scattered Rhonchi, no wheeze ...Clubbing: No Gastrointestinal: Yes: Normal Bowel Sounds, Soft. No: Tenderness Edema: No Neurological: Yes: Alert Labs: Laboratory Results - last 24 hr 12/07/17 12/08/17 12/08/17 21:49 06:07 11:26 POC Glucometer 243.78917 241.33261 233.56409 12/08/17 12/08/17 12/09/17 16:40 20:56 06:14 POC Glucometer 133.48891 214.44996 271.68963 12/10/17 12/10/17 12/10/17 14:26 18:20 22:20 POC Glucometer 302.56442 218.90809 225.96209 12/11/17 05:49 POC Glucometer 231.63077 Problem List - Problems (1) Acute respiratory failure with hypoxia Code(s): J96.01 - ACUTE RESPIRATORY FAILURE WITH HYPOXIA (2) Influenza A Code(s): J10.1 - FLU DUE TO OTH IDENT INFLUENZA VIRUS W OTH RESP MANIFEST (3) Elevated liver enzymes Code(s): R74.8 - ABNORMAL LEVELS OF OTHER SERUM ENZYMES (4) Elevated troponin Code(s): R74.8 - ABNORMAL LEVELS OF OTHER SERUM ENZYMES (5) Lactic acidosis Code(s): E87.2 - ACIDOSIS (6) COPD with acute exacerbation Code(s): J44.1 - CHRONIC OBSTRUCTIVE PULMONARY DISEASE W (ACUTE) EXACERBATION Assessment/Plan Acute Hypoxic Respiratory Failure Acute COPD Exacerbation Influenza A +Troponins likely Demand Ischemia Elevated LFTs Smoker - Taper IV Medrol today - inhaled bronchodilators standing and PRN - Tamiflu has completed 5 days - O2 to keep Spo2 >90% - DVT prophylaxis Dr Edwards
--- NOTE | 2017-12-11 14:11 | PN ---
Physical Exam: SUBJECTIVE: Patient seen and examined. His breathing has improved, he appears less labored. Pt would like to get oob. OBJECTIVE: Vital Signs Period Temp Pulse Resp BP Sys/Luke Pulse Ox Last 24 Hr 98 F-98.9 F 82-110 20-20 132-157/59-81 96-97 PE Neuro: alert, awake, cn 2-12intact Pulm: diminished, rhonchi, + NC CV: s1 s2 tachycardia Abd: s nt nd + bs Ext: Warm, no le edema +DP pulses Laboratory Results - last 24 hr 12/11/17 05:49 POC Glucometer 231.98001 Active Medications Generic Name Dose Route Start Last Admin Trade Name Freq PRN Reason Stop Dose Admin Albuterol/Ipratropium 1 amp 12/10/17 09:44 12/11/17 07:48 Duoneb - NEB 1 amp 0400,0800,1200,2000 HERBERTH Administration Aspirin 81 mg 12/04/17 10:00 12/11/17 11:11 Ecotrin - PO 81 mg DAILY HERBERTH Administration Budesonide/Formoterol Fumarate 1 puff 12/05/17 22:00 12/11/17 11:12 Symbicort 160/4.5mcg - IH 1 puff BID HERBERTH Administration Diltiazem HCl 180 mg 12/09/17 10:00 12/11/17 11:10 Cardizem Cd - PO 180 mg DAILY HERBERTH Administration Insulin Aspart 1 vial 12/07/17 11:00 12/11/17 13:07 Novolog Vial Sliding Scale - SQ 6 units ACHS HERBERTH Administration Protocol Methimazole 10 mg 12/05/17 12:30 12/11/17 11:26 Tapazole - PO 10 mg DAILY HERBERTH Administration Methylprednisolone Sodium Succinate 30 mg 12/11/17 22:00 Solu-Medrol - IVPUSH Q12H HERBERTH Nystatin 500,000 units 12/05/17 12:00 12/11/17 11:11 Nystatin Oral Suspension - PO 500,000 units Q6HPO HERBERTH Administration Assessment: 82 year-old male with no reported PMH. Admitted for sepsis secondary to influenza A. Plan: 1. Influenza A - Completed 5 days Tamiflu - Taper Medrol 30mg q12 today - Continue spirivia, symbicort - Duonebs herberth - Pulmonary following 2. Acute hypoxic respiratory failure - Still requires supplemental o2 3. HTN - Controlled - Cardizem cd 180mg daily 4. Lactic acidosis -Resolved 5. Elevated troponin - r/o ACS, trops flat - Cont ASA - No CHF s/x, ECHO above 6. Sinus tachycardia - On cardizem - Likely due to increased work of breathing/steroids 7. Hyperthyroid - Started (12/05) methimazole 10mg daily 6. Tobacco/etoh/intermittent heroin - Cessation counseling done 7. Oral thrush - Continue nystatin s/s (12/05-) 8. Transaminitis - LFT's down trending - Liver US negative for acute pathology 9. DVT prophylaxis - Lovenox sq Visit type - Emergency Visit Emergency Visit: Yes ED Registration Date: 12/03/17 Care time: The patient presented to the Emergency Department on the above date and was hospitalized for further evaluation of their emergent condition. - New Patient This patient is new to me today: No - Critical Care Critical Care patient: No
[2017-12-11] MEDS ORDERED: methylPREDNISolone NA SUCC 40 MG/1 ML VIAL IVPUSH SCH (22:00)
[2017-12-12] MEDS: ALBUTEROL SO4 2.5/IPRATROPIUM 0.5 INH SOL 3 ML VIAL.NEB. NEB SCH ×4 (04:15→21:20)
[2017-12-12] MEDS: INSULIN SLIDING SCALE (NOVOLOG) 1 VIAL SQ SCH ×4 (06:27→22:19)
[2017-12-12] MEDS: NYSTATIN 500,000 UNITS/5 ML SUSPENSION PO SCH ×3 (06:27→18:49)
[2017-12-12] MEDS ORDERED: PT OWN MED DRAWER 7, Y5N ONE (10:18)
[2017-12-12] MEDS: methylPREDNISolone NA SUCC 40 MG/1 ML VIAL IVPUSH SCH ×2 (10:21→22:20)
[2017-12-12] MEDS: ASPIRIN COATED 81 MG TABLET.EC PO SCH (10:21)
[2017-12-12] MEDS: BUDESONIDE/FORMETEROL FUMARATE 160/4.5 mcg INHALER IH SCH ×2 (10:22→22:20)
--- NOTE | 2017-12-12 13:03 | PN ---
Progress Note, Physician History of Present Illness: pulmonary' alert,feeling better,sob improving,-congestion - Current Medication List Current Medications: Active Medications Albuterol/Ipratropium (Duoneb -) 1 amp NEB 0400,0800,1200,2000 [facility] Last Admin: 12/12/17 12:00 Dose: 1 amp Aspirin (Ecotrin -) 81 mg PO DAILY [facility] Last Admin: 12/12/17 10:21 Dose: 81 mg Budesonide/Formoterol Fumarate (Symbicort 160/4.5mcg -) 1 puff IH BID [facility] Last Admin: 12/12/17 10:22 Dose: 1 units Diltiazem HCl (Cardizem Cd -) 180 mg PO DAILY [facility] Last Admin: 12/12/17 10:21 Dose: 180 mg Insulin Aspart (Novolog Vial Sliding Scale -) 1 vial SQ ACHS [facility] PRN Reason: Protocol Last Admin: 12/12/17 12:21 Dose: 2 units Methimazole (Tapazole -) 10 mg PO DAILY [facility] Methylprednisolone Sodium Succinate (Solu-Medrol -) 30 mg IVPUSH Q12H [facility] Last Admin: 12/12/17 10:21 Dose: 30 mg Nystatin (Nystatin Oral Suspension -) 500,000 units PO Q6HPO [facility] - Objective Vital Signs: Vital Signs Temperature 97.8 F 12/12/17 09:03 Pulse Rate 92 H 12/12/17 09:03 Respiratory Rate 17 12/12/17 09:03 Blood Pressure 138/76 12/12/17 09:03 O2 Sat by Pulse Oximetry (%) 97 12/12/17 08:39 Constitutional: Yes: Well Nourished, Calm Eyes: Yes: WNL HENT: Yes: WNL Neck: Yes: WNL Cardiovascular: Yes: Regular Rate and Rhythm, S1, S2 Respiratory: Yes: Diminished Gastrointestinal: Yes: Normal Bowel Sounds, Soft Extremities: Yes: WNL Edema: No Labs: CBC, BMP Assessment/Plan A/P Acute Hypoxic Respiratory Failure improved Acute COPD Exacerbation improving Influenza A +Troponins likely Demand Ischemia Elevated LFTs Smoker - medrol - start prednisone in am - inhaled bronchodilators standing and PRN - O2 to keep Spo2 >90% - DVT prophylaxis Problem List - Problems (1) Acute respiratory failure with hypoxia Code(s): J96.01 - ACUTE RESPIRATORY FAILURE WITH HYPOXIA (2) Influenza A Code(s): J10.1 - FLU DUE TO OTH IDENT INFLUENZA VIRUS W OTH RESP MANIFEST (3) Elevated liver enzymes Code(s): R74.8 - ABNORMAL LEVELS OF OTHER SERUM ENZYMES (4) Elevated troponin Code(s): R74.8 - ABNORMAL LEVELS OF OTHER SERUM ENZYMES (5) Lactic acidosis Code(s): E87.2 - ACIDOSIS (6) COPD with acute exacerbation Code(s): J44.1 - CHRONIC OBSTRUCTIVE PULMONARY DISEASE W (ACUTE) EXACERBATION
[2017-12-12] MEDS: METHIMAZOLE 10 MG TABLET (FP) PO SCH (13:36)
--- NOTE | 2017-12-12 13:50 | PN ---
Physical Exam: SUBJECTIVE: Patient seen and examined at bedside. OBJECTIVE: Vital Signs Period Temp Pulse Resp BP Sys/Luke Pulse Ox Last 24 Hr 97.5 F-98.7 F 82-92 17-20 138-170/58-78 97-97 GENERAL: The patient is awake, alert, and fully oriented, in no acute distress. LUNGS: Diminished bilaterally. HEART: RRR, S1, S2. No m/r/g ABDOMEN: SNTND. +BS EXTREMITIES: 2+ pulses, warm, well-perfused, no edema. NEUROLOGICAL: Cranial nerves II through XII grossly intact. Normal speech. Laboratory Results - last 24 hr 12/11/17 12/12/17 12/12/17 21:55 05:36 12:21 POC Glucometer [phone] Active Medications Generic Name Dose Route Start Last Admin Trade Name Freq PRN Reason Stop Dose Admin Albuterol/Ipratropium 1 amp 12/12/17 08:00 12/12/17 12:00 Duoneb - NEB 1 amp 0400,0800,1200,2000 EDDIE Administration Aspirin 81 mg 12/12/17 10:00 12/12/17 10:21 Ecotrin - PO 81 mg DAILY EDDIE Administration Budesonide/Formoterol Fumarate 1 puff 12/12/17 10:00 12/12/17 10:22 Symbicort 160/4.5mcg - IH 1 units BID EDDIE Administration Diltiazem HCl 180 mg 12/12/17 10:00 12/12/17 10:21 Cardizem Cd - PO 180 mg DAILY EDDIE Administration Insulin Aspart 1 vial 12/12/17 11:00 12/12/17 12:21 Novolog Vial Sliding Scale - SQ 2 units ACHS EDDIE Administration Protocol Methimazole 10 mg 12/12/17 10:00 12/12/17 13:36 Tapazole - PO 10 mg DAILY EDDIE Administration Methylprednisolone Sodium Succinate 30 mg 12/12/17 10:00 12/12/17 10:21 Solu-Medrol - IVPUSH 12/12/17 23:00 30 mg Q12H EDDIE Administration Nystatin 500,000 units 12/12/17 12:00 12/12/17 13:36 Nystatin Oral Suspension - PO 500,000 units Q6HPO EDDIE Administration Prednisone 60 mg 12/13/17 10:00 Deltasone - PO DAILY EDDIE Echo 12/20: nl LVSF, no RWMA seen (tds images). nl RV. nl LA. valve fxn WNL. trivial peric eff ASSESSMENT/PLAN: A: 82 year-old male with no reported PMH. Admitted for sepsis secondary to influenza A. P: Influenza A - Completed 5 days Tamiflu - Methylpred 30mg q12- transition to PO on 12/13 - spirivia - symbicort - Duonebs - Pulm following Acute hypoxic respiratory failure - requires supplemental o2 HTN - Controlled - Cardizem cd 180mg daily Lactic acidosis - Resolved Elevated troponin - r/o ACS, trops stable - Cont ASA - No CHF s/x, ECHO above Sinus tachycardia - On cardizem - Likely due to increased work of breathing/steroids Hyperthyroid - Started (12/05) methimazole 10mg daily Tobacco/etoh/occasional heroin - Cessation counseling provided - no s/s withdrawal Oral thrush - Continue nystatin s/s (12/05-) Transaminitis - LFT's down trending - Liver US negative for acute pathology - HCV pending F/E/N - low Na diet - replete prn PPX - Lovenox Dispo- SNF Visit type - Emergency Visit Emergency Visit: Yes ED Registration Date: 12/03/17 Care time: The patient presented to the Emergency Department on the above date and was hospitalized for further evaluation of their emergent condition. - New Patient This patient is new to me today: Yes Date on this admission: 12/13/17 - Critical Care Critical Care patient: No
--- NOTE | 2017-12-12 20:01 | PN ---
Progress Note (short form) - Note Progress Note: CC: sob s: no sob cp palps dizzy. no events. o: Current Medications Albuterol/Ipratropium (Duoneb -) 1 amp NEB 0400,0800,1200,2000 [facility] Last Admin: 12/12/17 12:00 Dose: 1 amp Aspirin (Ecotrin -) 81 mg PO DAILY [facility] Last Admin: 12/12/17 10:21 Dose: 81 mg Budesonide/Formoterol Fumarate (Symbicort 160/4.5mcg -) 1 puff IH BID [facility] Last Admin: 12/12/17 10:22 Dose: 1 units Diltiazem HCl (Cardizem Cd -) 180 mg PO DAILY [facility] Last Admin: 12/12/17 10:21 Dose: 180 mg Insulin Aspart (Novolog Vial Sliding Scale -) 1 vial SQ ACHS [facility] PRN Reason: Protocol Last Admin: 12/12/17 16:52 Dose: 10 units Methimazole (Tapazole -) 10 mg PO DAILY [facility] Last Admin: 12/12/17 13:36 Dose: 10 mg Methylprednisolone Sodium Succinate (Solu-Medrol -) 30 mg IVPUSH Q12H [facility] Stop: 12/12/17 23:00 Last Admin: 12/12/17 10:21 Dose: 30 mg Nystatin (Nystatin Oral Suspension -) 500,000 units PO Q6HPO [facility] Last Admin: 12/12/17 18:49 Dose: 500,000 units Prednisone (Deltasone -) 60 mg PO DAILY [facility] Vital Signs - 24 hr 12/11/17 12/12/17 12/12/17 20:21 00:27 02:00 Temperature 98.7 F 97.9 F 97.5 F L Pulse Rate 92 H 84 82 Respiratory 20 20 20 Rate Blood Pressure 159/71 149/74 149/75 O2 Sat by Pulse 97 Oximetry (%) 12/12/17 12/12/17 12/12/17 05:39 08:39 09:03 Temperature 98.7 F 97.8 F Pulse Rate 86 92 H Respiratory 18 17 Rate Blood Pressure 150/63 138/76 O2 Sat by Pulse 97 Oximetry (%) 12/12/17 12/12/17 12/12/17 10:00 15:16 18:00 Temperature 97.7 F 99.1 F Pulse Rate 97 H 95 H Respiratory 18 22 Rate Blood Pressure 133/63 135/74 O2 Sat by Pulse 95 Oximetry (%) Intake & Output 12/10/17 12/11/17 12/12/17 12/13/17 07:59 07:59 07:59 07:59 Intake Total 100 080 295 9689 Output Total 1150 600 750 670 Balance -1050 -342 -450 330 nad, calm jvd flat, neck supple diminished air movement, nl effort rrr nl s1, s2 no mrg. pmi nd. + bs soft nt nd no hsm ext without e/c/c aaox3 no jaundice, diaphoresis no CBC, BMP 12/10/17 05:40 12/10/17 05:40 EKG: Other (prior tele: SR) ekg; sinus tach, 135 bpm. non-specific t wave abnormality. no acute ischemic changes. cxr: report reviewed "some coarse base changes". images reviewed no chf Echo 12/20: nl LVSF, no RWMA seen (tds images). nl RV. nl LA. valve fxn WNL. trivial peric eff a/p: 82 y/o smoker with no known PMH (No PCP or medical care in years) p/w fever , myalgias and cough and found to have flu. Er course notable for tachycardia and intermediate troponin elevation. flu, acute resp distress - steroids and BDs per pulm/crit care - no signs of HF sinus tachycardia - worsened 2/3 likely sec to worsening resp distress - started moderate dose diltiazem for HR and BP control. HR and BP better, but HR still somewhat elevated today 2/10. Will increase dilt to 240 mg/day. HTN: -stable, monitor with med changes intermediate troponin elevation - borderline levels, flat trend (0.1 x4), not c/w acs - no signs of chf - normal LVSF on echo - no further w/u indicated in absence of CAD sx's + tobacco/etoh/intermittent heroin - cessation counseled here. elevated LFTs: - ? viral syndrome related - gradually improved - per hospitalist
[2017-12-13] MEDS: NYSTATIN 500,000 UNITS/5 ML SUSPENSION PO SCH ×4 (00:20→17:10)
[2017-12-13] MEDS: ALBUTEROL SO4 2.5/IPRATROPIUM 0.5 INH SOL 3 ML VIAL.NEB. NEB SCH ×4 (04:15→20:00)
[2017-12-13] MEDS: INSULIN SLIDING SCALE (NOVOLOG) 1 VIAL SQ SCH ×4 (06:15→21:54)
[2017-12-13] MEDS ORDERED: PT OWN MED DRAWER 7, Y5N ONE (08:52)
[2017-12-13] MEDS: ASPIRIN COATED 81 MG TABLET.EC PO SCH (10:11)
[2017-12-13] MEDS: BUDESONIDE/FORMETEROL FUMARATE 160/4.5 mcg INHALER IH SCH ×2 (10:11→21:11)
[2017-12-13] MEDS: predniSONE 20 MG TABLET (UD) PO SCH (10:11)
[2017-12-13] MEDS: METHIMAZOLE 10 MG TABLET (FP) PO SCH (10:12)
[2017-12-13 10:42] LABS: BASO % 0.1 % (0-2.0); HEMATOCRIT 48.5 % (35.4-49); HEMOGLOBIN 15.6 GM/dL (11.7-16.9); LYMPH % 2.1 % (8-40); MCH 29.2 pg (25.7-33.7); MCHC 32.2 g/dl (32.0-35.9); MEAN CELL VOLUME 90.7 fl (80-96); MONO % 6.9 % (3.8-10.2); NEUT % 90.9 % (42.8-82.8); PLATELET COUNT 186 K/MM3 (134-434); RBC 5.34 M/mm3 (4.00-5.60); RDW 13.8 % (11.9-15.9); WHITE BLOOD COUNT 20.7 K/mm3 (4.0-10.0)
[2017-12-13 11:10] LABS: ALBUMIN 2.3 g/dl (3.4-5.0); ANION GAP 5 (8-16); BILIRUBIN,TOTAL 0.7 mg/dL (0.2-1.0); BLOOD UREA NITROGEN 30 mg/dL (7-18); CALCIUM 7.8 mg/dL (8.5-10.1); CHLORIDE 95 mmol/L (98-107); CO2 32 mmol/L (21-32); CREATININE 0.8 mg/dL (0.7-1.3); GLUCOSE,RANDOM 227 mg/dL (74-106); POTASSIUM 4.4 mmol/L (3.5-5.1); SGOT/AST 92 U/L (15-37); SGPT/ALT 208 U/L (12-78); SODIUM 132 mmol/L (136-145); TOT PROT 5.2 g/dl (6.4-8.2)
[2017-12-13 11:11] LABS: ALK PHOS 57 U/L (45-117)
--- NOTE | 2017-12-13 13:08 | PN ---
Progress Note, Physician History of Present Illness: PULMONARY ALERT,NAD,-CP,-SOB,-COUGH - Current Medication List Current Medications: Active Medications Albuterol/Ipratropium (Duoneb -) 1 amp NEB 0400,0800,1200,2000 [facility] Last Admin: 12/13/17 12:45 Dose: 1 amp Aspirin (Ecotrin -) [address] [facility] Last Admin: 12/13/17 10:11 Dose: 81 mg Budesonide/Formoterol Fumarate (Symbicort 160/4.5mcg -) [address] [facility] Last Admin: 12/13/17 10:11 Dose: 1 units Diltiazem HCl (Cardizem Cd -) [address] [facility] Last Admin: 12/13/17 10:10 Dose: 240 mg Insulin Aspart (Novolog Vial Sliding Scale -) [address] [facility] PRN Reason: Protocol Last Admin: 12/13/17 11:46 Dose: 2 units Methimazole (Tapazole -) [address] [facility] Last Admin: 12/13/17 10:12 Dose: 10 mg Nystatin (Nystatin Oral Suspension -) 500,[address] [facility] Last Admin: 12/13/17 12:22 Dose: 500,000 units Prednisone (Deltasone -) [address] [facility] Last Admin: 12/13/17 10:11 Dose: 60 mg - Objective Vital Signs: Vital Signs Temperature 97.0 F L 12/13/17 10:00 Pulse Rate 98 H 12/13/17 10:00 Respiratory Rate 18 12/13/17 10:00 Blood Pressure 120/78 12/13/17 10:00 O2 Sat by Pulse Oximetry (%) 97 12/13/17 09:00 Constitutional: Yes: Well Nourished, Calm Eyes: Yes: WNL HENT: Yes: WNL Neck: Yes: WNL Cardiovascular: Yes: Regular Rate and Rhythm, S1, S2 Respiratory: Yes: Diminished Gastrointestinal: Yes: Normal Bowel Sounds, Soft Extremities: Yes: WNL Edema: No Labs: CBC, BMP 12/13/17 10:25 12/13/17 10:25 INR, PTT INR 0.98 (0.82-1.09) 12/03/17 11:00 Assessment/Plan A/P Acute Hypoxic Respiratory Failure improved Acute COPD Exacerbation improving Influenza A +Troponins likely Demand Ischemia Elevated LFTs Smoker - prednisone - inhaled bronchodilators standing and PRN - O2 to keep Spo2 >90% - DVT prophylaxis Problem List - Problems (1) Acute respiratory failure with hypoxia Code(s): J96.01 - ACUTE RESPIRATORY FAILURE WITH HYPOXIA (2) Influenza A Code(s): J10.1 - FLU DUE TO OTH IDENT INFLUENZA VIRUS W OTH RESP MANIFEST (3) Elevated liver enzymes Code(s): R74.8 - ABNORMAL LEVELS OF OTHER SERUM ENZYMES (4) Elevated troponin Code(s): R74.8 - ABNORMAL LEVELS OF OTHER SERUM ENZYMES (5) Lactic acidosis Code(s): E87.2 - ACIDOSIS (6) COPD with acute exacerbation Code(s): J44.1 - CHRONIC OBSTRUCTIVE PULMONARY DISEASE W (ACUTE) EXACERBATION
--- NOTE | 2017-12-13 18:14 | PN ---
Physical Exam: SUBJECTIVE: Patient seen and examined at bedside. No events overnight. OBJECTIVE: Vital Signs Period Temp Pulse Resp BP Sys/Luke Pulse Ox Last 24 Hr 97.0 F-98.1 F 89-110 18-20 120-162/76-98 96-97 GENERAL: The patient is awake, alert, and fully oriented, in no acute distress. LUNGS: Diminished bilaterally. HEART: RRR, S1, S2. No m/r/g ABDOMEN: SNTND. +BS EXTREMITIES: 2+ pulses, warm, well-perfused, no edema. NEUROLOGICAL: Cranial nerves II through XII grossly intact. Normal speech. Laboratory Results - last 24 hr 12/12/17 12/13/17 12/13/17 21:45 05:25 10:25 WBC 20.7 H RBC 5.34 Hgb 15.6 Hct 48.5 MCV 90.7 MCH 29.2 MCHC 32.2 RDW 13.8 Plt Count 186 D MPV 9.0 Neutrophils % 90.9 H Lymphocytes % 2.1 L D Monocytes % 6.9 D Eosinophils % 0.0 Basophils % 0.1 D Sodium Potassium Chloride Carbon Dioxide Anion Gap BUN Creatinine Creat Clearance w eGFR POC Glucometer 114 200 Random Glucose Calcium Total Bilirubin AST ALT Alkaline Phosphatase Total Protein Albumin 12/13/17 12/13/17 12/13/17 10:25 11:22 16:24 WBC RBC Hgb Hct MCV MCH MCHC RDW Plt Count MPV Neutrophils % Lymphocytes % Monocytes % Eosinophils % Basophils % Sodium 132 L Potassium 4.4 Chloride 95 L Carbon Dioxide 32 Anion Gap 5 L BUN 30 H Creatinine 0.8 Creat Clearance w eGFR > 60 POC Glucometer 200 286 Random Glucose 227 H D Calcium 7.8 L Total Bilirubin 0.7 AST 92 H D ALT 208 H Alkaline Phosphatase 57 Total Protein 5.2 L Albumin 2.3 L Active Medications Generic Name Dose Route Start Last Admin Trade Name Freq PRN Reason Stop Dose Admin Albuterol/Ipratropium 1 amp 12/12/17 08:00 12/13/17 12:45 Duoneb - NEB 1 amp 0400,0800,1200,2000 EDDIE Administration Aspirin 81 mg 12/12/17 10:00 12/13/17 10:11 Ecotrin - PO 81 mg DAILY EDDIE Administration Budesonide/Formoterol Fumarate 1 puff 12/12/17 10:00 12/13/17 10:11 Symbicort 160/4.5mcg - IH 1 units BID EDDIE Administration Diltiazem HCl 240 mg 12/13/17 10:00 12/13/17 10:10 Cardizem Cd - PO 240 mg DAILY EDDIE Administration Insulin Aspart 1 vial 12/12/17 11:00 12/13/17 16:38 Novolog Vial Sliding Scale - SQ 6 units ACHS EDDIE Administration Protocol Methimazole 10 mg 12/12/17 10:00 12/13/17 10:12 Tapazole - PO 10 mg DAILY EDDIE Administration Nystatin 500,000 units 12/12/17 12:00 12/13/17 17:10 Nystatin Oral Suspension - PO 500,000 units Q6HPO EDDIE Administration Prednisone 60 mg 12/13/17 10:00 12/13/17 10:11 Deltasone - PO 60 mg DAILY EDDIE Administration Echo 12/20: nl LVSF, no RWMA seen (tds images). nl RV. nl LA. valve fxn WNL. trivial peric eff ASSESSMENT/PLAN: A: 82 year-old male with no reported PMH. Admitted for sepsis secondary to influenza A. P: Influenza A - Completed 5 days Tamiflu - prednisone 60mg daily - spirivia - symbicort - Duonebs - Pulm following Acute hypoxic respiratory failure - requires supplemental o2 HTN - Controlled - Cardizem cd 180mg daily Lactic acidosis - Resolved Elevated troponin - r/o ACS, trops stable - Cont ASA - No CHF s/x, ECHO above Sinus tachycardia - On cardizem - Likely due to increased work of breathing/steroids Hyperthyroid - Started (2/3) methimazole 10mg daily Tobacco/etoh/occasional heroin - Cessation counseling provided - no s/s withdrawal Oral thrush - Continue nystatin s/s (2/3-) Transaminitis - LFT's down trending - Liver US negative for acute pathology - HCV pending F/E/N - low Na diet - replete prn PPX - Lovenox Dispo- SNF Visit type - Emergency Visit Emergency Visit: Yes ED Registration Date: 12/03/17 Care time: The patient presented to the Emergency Department on the above date and was hospitalized for further evaluation of their emergent condition. - New Patient This patient is new to me today: No - Critical Care Critical Care patient: No
--- NOTE | 2017-12-13 19:01 | PN ---
Progress Note (short form) - Note Progress Note: C: sob s: no sob cp palps dizzy. mood appears down. states he has no appetite o: Current Medications Albuterol/Ipratropium (Duoneb -) 1 amp NEB 0400,0800,1200,2000 [facility] Last Admin: 12/13/17 12:45 Dose: 1 amp Aspirin (Ecotrin -) 81 mg PO DAILY [facility] Last Admin: 12/13/17 10:11 Dose: 81 mg Budesonide/Formoterol Fumarate (Symbicort 160/4.5mcg -) 1 puff IH BID [facility] Last Admin: 12/13/17 10:11 Dose: 1 units Diltiazem HCl (Cardizem Cd -) 240 mg PO DAILY [facility] Last Admin: 12/13/17 10:10 Dose: 240 mg Insulin Aspart (Novolog Vial Sliding Scale -) 1 vial SQ ACHS [facility] PRN Reason: Protocol Last Admin: 12/13/17 16:38 Dose: 6 units Methimazole (Tapazole -) 10 mg PO DAILY [facility] Last Admin: 12/13/17 10:12 Dose: 10 mg Nystatin (Nystatin Oral Suspension -) 500,000 units PO Q6HPO [facility] Last Admin: 12/13/17 17:10 Dose: 500,000 units Prednisone (Deltasone -) 60 mg PO DAILY [facility] Last Admin: 12/13/17 10:11 Dose: 60 mg Vital Signs - 24 hr 12/12/17 12/13/17 12/13/17 21:00 02:00 06:00 Temperature 98.1 F 97.9 F Pulse Rate 89 96 H Pulse Rate [ Right side Sitting] Pulse Rate [ Right side Supine] Pulse Rate [ Standing] Respiratory 20 18 Rate Blood Pressure 162/89 Blood Pressure [Right side Sitting] Blood Pressure [Right side Supine] Blood Pressure [Standing] O2 Sat by Pulse 96 Oximetry (%) 12/13/17 12/13/17 12/13/17 06:01 09:00 10:00 Temperature 97.0 F L Pulse Rate 96 H 98 H Pulse Rate [ Right side Sitting] Pulse Rate [ Right side Supine] Pulse Rate [ Standing] Respiratory 18 18 Rate Blood Pressure 140/80 120/78 Blood Pressure [Right side Sitting] Blood Pressure [Right side Supine] Blood Pressure [Standing] O2 Sat by Pulse 97 Oximetry (%) 12/13/17 12/13/17 12/13/17 15:34 16:26 18:37 Temperature 98.1 F 97.8 F Pulse Rate 110 H 100 H 117 H Pulse Rate [ 117 H Right side Sitting] Pulse Rate [ 107 H Right side Supine] Pulse Rate [ 120 H Standing] Respiratory 18 18 18 Rate Blood Pressure 143/98 127/76 117/75 Blood Pressure 117/75 [Right side Sitting] Blood Pressure 111/76 [Right side Supine] Blood Pressure 128/98 [Standing] O2 Sat by Pulse Oximetry (%) 12/13/17 18:42 Temperature Pulse Rate 120 H Pulse Rate [ Right side Sitting] Pulse Rate [ Right side Supine] Pulse Rate [ Standing] Respiratory 18 Rate Blood Pressure 128/98 Blood Pressure [Right side Sitting] Blood Pressure [Right side Supine] Blood Pressure [Standing] O2 Sat by Pulse Oximetry (%) Intake & Output 12/11/17 12/12/17 12/13/17 12/14/17 07:59 07:59 07:59 07:59 Intake Total 449 783 9642 420 Output Total 198 973 0578 600 Balance -342 -450 -170 -180 nad, calm jvd flat, neck supple diminshed air mov't, nl effort rrr nl s1, s2 no mrg. pmi nd. + bs soft nt nd no hsm ext without e/c/c aaox3 no jaundice, diaphoresis CBC, BMP 12/13/17 10:25 12/13/17 10:25 EKG: Other (tele: SR) ekg; sinus tach, 135 bpm. non-specific t wave abnormality. no acute ischemic changes. cxr: report reviewed "some coarse base changes". images reviewed no chf Echo 12/20: nl LVSF, no RWMA seen (tds images). nl RV. nl LA. valve fxn WNL. trivial peric eff a/p: 82 y/o smoker with no known PMH (No PCP or medical care in years) p/w fever , myalgias and cough and found to have flu. Er course notable for tachycardia and intermediate troponin elevation. flu, acute resp distress - steroids and BDs per pulm/crit care - no signs of HF sinus tachycardia - worsened 2/3 likely sec to worsening resp distress - started moderate dose diltiazem for HR and BP control. HR and BP better, but HR still somewhat elevated. - 12/13 Increased dilt to 240 mg/day but hr remains elevated today with decreased sodium on bmp. orthostatics were not positive despite patient endorsing poor po intake. low threshold to resume IVF, can hold off for now and reassess tomorrow. HTN: -stable, monitor with med changes intermediate troponin elevation - borderline levels, flat trend (0.1 x4), not c/w acs - no signs of chf - normal LVSF on echo - no further w/u indicated in absence of CAD sx's + tobacco/etoh/intermittent heroin - cessation counseled here. elevated LFTs: - ? viral syndrome related - gradually improved - per hospitalist
[2017-12-14] MEDS: NYSTATIN 500,000 UNITS/5 ML SUSPENSION PO SCH ×4 (00:12→17:33)
[2017-12-14] MEDS: ALBUTEROL SO4 2.5/IPRATROPIUM 0.5 INH SOL 3 ML VIAL.NEB. NEB SCH ×3 (04:20→11:09)
[2017-12-14] MEDS: INSULIN SLIDING SCALE (NOVOLOG) 1 VIAL SQ SCH ×3 (06:02→17:32)
[2017-12-14 07:32] LABS: BASO % 0.2 % (0-2.0); EOS % 0.1 % (0-4.5); HEMATOCRIT 48.3 % (35.4-49); HEMOGLOBIN 15.2 GM/dL (11.7-16.9); LYMPH % 4.7 % (8-40); MCH 28.9 pg (25.7-33.7); MCHC 31.5 g/dl (32.0-35.9); MEAN CELL VOLUME 91.6 fl (80-96); MEAN PLT VOLUME 9.5 fl (7.5-11.1); MONO % 8.6 % (3.8-10.2); NEUT % 86.4 % (42.8-82.8); PLATELET COUNT 168 K/MM3 (134-434); RBC 5.28 M/mm3 (4.00-5.60); RDW 13.4 % (11.9-15.9); WHITE BLOOD COUNT 21.7 K/mm3 (4.0-10.0)
[2017-12-14 07:58] LABS: ALBUMIN 2.3 g/dl (3.4-5.0); ANION GAP 5 (8-16); BILIRUBIN,TOTAL 0.9 mg/dL (0.2-1.0); BLOOD UREA NITROGEN 29 mg/dL (7-18); CHLORIDE 97 mmol/L (98-107); CO2 33 mmol/L (21-32); CREATININE 0.7 mg/dL (0.7-1.3); GLUCOSE,RANDOM 118 mg/dL (74-106); POTASSIUM 3.9 mmol/L (3.5-5.1); SGOT/AST 102 U/L (15-37); SGPT/ALT 204 U/L (12-78); SODIUM 135 mmol/L (136-145); TOT PROT 5.1 g/dl (6.4-8.2)
[2017-12-14 07:59] LABS: ALK PHOS 57 U/L (45-117)
[2017-12-14] MEDS ORDERED: PT OWN MED DRAWER 7, Y5N ONE (09:57)
[2017-12-14] MEDS: predniSONE 20 MG TABLET (UD) PO SCH (09:58)
[2017-12-14] MEDS: ASPIRIN COATED 81 MG TABLET.EC PO SCH (09:58)
[2017-12-14] MEDS: BUDESONIDE/FORMETEROL FUMARATE 160/4.5 mcg INHALER IH SCH (09:59)
[2017-12-14] MEDS: METHIMAZOLE 10 MG TABLET (FP) PO SCH (09:59)
[2017-12-14] MEDS ORDERED: POLYETHYLENE GLYCOL 3350 119 GM BTL PO SCH (10:00)
[2017-12-14] MEDS ORDERED: CEFTRIAXONE 1 GM in DEXTROSE 5%-WATER - 50 ML IVPB SCH (10:00)
--- NOTE | 2017-12-14 12:41 | PN ---
Progress Note (short form) - Note Progress Note: Breathing feels OK today. Denies CP. Less congested cough. Intake & Output 12/11/17 12/12/17 12/13/1718 23:59 23:59 23:59 23:59 Intake Total 448 1100 440 Output Total 400 1020 1300 150 Balance 48 80 -860 -150 Last Vital Signs Temp Pulse Resp BP Pulse Ox 97.8 F 102 H 20 127/57 96 12/14/17 09:00 12/14/17 09:00 12/14/17 09:00 12/14/17 09:00 12/13/17 21:00 Active Medications Albuterol/Ipratropium (Duoneb -) 1 amp NEB 0400,0800,1200,2000 [facility] Last Admin: 12/14/17 11:09 Dose: 1 amp Aspirin (Ecotrin -) 81 mg PO DAILY [facility] Last Admin: 12/14/17 09:58 Dose: 81 mg Budesonide/Formoterol Fumarate (Symbicort 160/4.5mcg -) 1 puff IH BID [facility] Last Admin: 12/14/17 09:59 Dose: 1 puff Diltiazem HCl (Cardizem Cd -) 240 mg PO DAILY [facility] Last Admin: 12/14/17 09:58 Dose: 240 mg Docusate Sodium (Colace -) 300 mg PO HS [facility] Ceftriaxone Sodium 1 gm/ (Dextrose) 50 mls @ 100 mls/hr IVPB DAILY [facility] Insulin Aspart (Novolog Vial Sliding Scale -) 1 vial SQ ACHS [facility] PRN Reason: Protocol Last Admin: 12/14/17 11:57 Dose: Not Given Methimazole (Tapazole -) 10 mg PO DAILY [facility] Last Admin: 12/14/17 09:59 Dose: 10 mg Nystatin (Nystatin Oral Suspension -) 500,000 units PO Q6HPO [facility] Last Admin: 12/14/17 11:57 Dose: 500,000 units Polyethylene Glycol (Miralax (For Daily Use) -) 17 gm PO BID [facility] Prednisone (Deltasone -) 60 mg PO DAILY [facility] Last Admin: 12/14/17 09:58 Dose: 60 mg Constitutional: Yes: Awake and alert, NAD Eyes: Yes: Conjunctiva Clear, EOM Intact HENT: Yes: Atraumatic, Normocephalic Neck: Yes: Supple, Trachea Midline Cardiovascular: Yes: Tachycardia Respiratory: Yes: Diminished at the bases, scattered Rhonchi, no wheeze ...Clubbing: No Gastrointestinal: Yes: Normal Bowel Sounds, Soft. No: Tenderness Edema: No Neurological: Yes: Alert Labs: Laboratory Results - last 24 hr 12/08/17 12/13/17 12/13/17 14:30 16:24 21:53 WBC RBC Hgb Hct MCV MCH MCHC RDW Plt Count MPV Neutrophils % Lymphocytes % Monocytes % Eosinophils % Basophils % Sodium Potassium Chloride Carbon Dioxide Anion Gap BUN Creatinine Creat Clearance w eGFR POC Glucometer 286 213 Random Glucose Calcium Total Bilirubin AST ALT Alkaline Phosphatase Total Protein Albumin HCV Quantitation [id number] HCV RNA PCR log paste up copy camera operator/ml 6.275 12/14/17 12/14/17 12/14/17 05:46 06:35 06:35 WBC 21.7 H RBC 5.28 Hgb 15.2 Hct 48.3 MCV 91.6 MCH 28.9 MCHC 31.5 L RDW 13.4 Plt Count 168 MPV 9.5 Neutrophils % 86.4 H Lymphocytes % 4.7 L D Monocytes % 8.6 Eosinophils % 0.1 D Basophils % 0.2 Sodium 135 L Potassium 3.9 Chloride 97 L Carbon Dioxide 33 H Anion Gap 5 L BUN 29 H Creatinine 0.7 Creat Clearance w eGFR > 60 POC Glucometer 118 Random Glucose 118 H D Calcium 8.0 L Total Bilirubin 0.9 D AST 102 H ALT 204 H Alkaline Phosphatase 57 Total Protein 5.1 L Albumin 2.3 L HCV Quantitation HCV RNA PCR log paste up copy camera operator/ml 12/14/17 11:56 WBC RBC Hgb Hct MCV MCH MCHC RDW Plt Count MPV Neutrophils % Lymphocytes % Monocytes % Eosinophils % Basophils % Sodium Potassium Chloride Carbon Dioxide Anion Gap BUN Creatinine Creat Clearance w eGFR POC Glucometer 127 Random Glucose Calcium Total Bilirubin AST ALT Alkaline Phosphatase Total Protein Albumin HCV Quantitation HCV RNA PCR log paste up copy camera operator/ml Problem List - Problems (1) Acute respiratory failure with hypoxia Code(s): J96.01 - ACUTE RESPIRATORY FAILURE WITH HYPOXIA (2) Influenza A Code(s): J10.1 - FLU DUE TO OTH IDENT INFLUENZA VIRUS W OTH RESP MANIFEST (3) Elevated liver enzymes Code(s): R74.8 - ABNORMAL LEVELS OF OTHER SERUM ENZYMES (4) Elevated troponin Code(s): R74.8 - ABNORMAL LEVELS OF OTHER SERUM ENZYMES (5) Lactic acidosis Code(s): E87.2 - ACIDOSIS (6) COPD with acute exacerbation Code(s): J44.1 - CHRONIC OBSTRUCTIVE PULMONARY DISEASE W (ACUTE) EXACERBATION Assessment/Plan Acute Hypoxic Respiratory Failure Acute COPD Exacerbation Influenza A +Troponins likely Demand Ischemia Elevated LFTs Smoker - Prednisone taper - inhaled bronchodilators standing and PRN - Tamiflu has completed 5 days - O2 to keep Spo2 >90% - DVT prophylaxis - D/C planning Dr Edwards
[2017-12-14 17:17] VITALS: BP 105/66; PULSE 119; TEMP 97.6
[2017-12-14] MEDS ORDERED: DOCUSATE SODIUM 100 MG CAPSULE (FP) PO SCH (22:00)
== END 2017-12-14 18:14 | DRG 871 ==
LOC: JER 09:47 → UNDOADMOB 13:33 → JERBED 13:33 → OBSVTOIN 16:17 → INTOOBSV 16:17 → J2W 18:59 → JERBED 18:59 → J2W 18:59 → J5S 12-12 06:50
PROVIDERS: ADMIT Hospitalist; ATTEND Nurse Practitioner Acute Care
DX: A41.9 Sepsis, unspecified organism (principal); J96.01 Acute respiratory failure with hypoxia; E87.2 Acidosis; J44.1 Chronic obstructive pulmonary disease with (acute) exacerbation; B37.0 Candidal stomatitis; I24.8 Other forms of acute ischemic heart disease; J10.1 Influenza due to other identified influenza virus with other respiratory manifestations; R74.8 Abnormal levels of other serum enzymes; R00.0 Tachycardia, unspecified; I10 Essential (primary) hypertension; E05.90 Thyrotoxicosis, unspecified without thyrotoxic crisis or storm; R74.0 Nonspecific elevation of levels of transaminase and lactic acid dehydrogenase [LDH]; Z72.0 Tobacco use
CPT/HCPCS: 36415; 36600; 71045-TC-FY; 71250-TC; 76705-TC; 80053; 80061; 81003; 81015; 82550; 82553; 82803; 82962; 83036; 83605; 83721; 83735; 84439; 84443; 84481; 84484; 85025; 85027; 85610; 85730; 86704; 86706; 86708; 86803; 86850; 86900; 86901; 87040; 87086; 87340; 87389; 87522; 87804; 87899; 90670; 90688; 93005; 93010; 93306-TC; 93970-TC; 94640; 97116-GP; 97161-GP; 99285-25; G0008; G0009; G0378; J0131; J7030; J7620

== ENCOUNTER 2017-12-29 14:23 | Emergency (ER) | payer OTHER, BC ==
[2017-12-29 14:45] VITALS: BP 0/0; PULSE 0; TEMP 99.2; BMI 28.3
--- NOTE | 2017-12-29 15:04 | PDOC ---
History of Present Illness - General Chief Complaint: Cardiac Arrest Stated Complaint: NON RESPONSIVE Time Seen by Provider: 12/29/17 14:47 - History of Present Illness Initial Comments: 12/29/17 15:03 82 yo M with h/o COPD BIBA from outside nursing facility ( [facility]) unresponsive. Per EMS report EMS was called to pt. facility following lethargy and nasuea with coffee ground emesis earlier today. When EMS arrived pt. was responsive, alert, and lethargic appearing. On arrival at 1406 BP 103/92 with P 125, with BS 196. In route to ED patient more lethargic appearing, repsonisve to painful stimuli only, with decreased respiratory effort. Once patient in ED, HR dropped to from 90's to 40's. Patient brought into room 10 at 02:20 pm and pulseless. Last seen in ED ( 12/05-12/19) for acute hypoxic resp failure. Past History - Past Medical History Allergies/Adverse Reactions: Allergies Allergy/AdvReac Type Severity Reaction Status Date / Time No Known Allergies Allergy Verified 12/29/17 14:24 Home Medications: Ambulatory Orders Aspirin Coated [Ecotrin -] 81 mg PO DAILY tablet.ec 12/14/17 Budesonide/Formeterol Fumarate [SYMBICORT 160/4.5mcg -] 1 puff IH BID inhaler 12/14/17 Diltiazem Cd [Cardizem Cd -] 240 mg PO DAILY cap.cd.24h 12/14/17 Docusate Sodium [Colace -] 300 mg PO HS capsule 12/14/17 Insulin Sliding Scale [Novolog Vial Sliding Scale -] 1 vial SQ ACHS units 12/14 Methimazole [Tapazole -] 10 mg PO DAILY tablet 12/14/17 Methylprednisolone [Medrol Dose Sin] 4 mg PO ASDIR #21 tablet 12/14/17 Polyethylene Glycol 3350 [Miralax 119 gm Btl -] 17 gm PO BID bottle 12/14/17 COPD: Yes Diabetes: Yes Hypercholesterolemia: Yes Seizures: Yes (thyrotoxicosis) Other medical history: hypocalcemia - Suicide/Smoking/Psychosocial Hx Smoking History: Unknown if ever smoked Have you smoked in the past 12 months: Yes Number of Cigarettes Smoked Daily: 2 Information on smoking cessation initiated: No Hx Alcohol Use: No Drug/Substance Use Hx: No Substance Use Type: None Review of Systems - Review of Systems Comments:: 12/29/17 15:03 Unable to obtain 13 point ROS *Physical Exam - Vital Signs Last Vital Signs Temp Pulse Resp BP Pulse Ox 99.2 F 0 L 0 L 0/0 0 L 12/29/17 14:25 12/29/17 14:25 12/29/17 14:25 12/29/17 14:25 12/29/17 14:25 - Physical Exam Comments: 12/29/17 15:04 GENERAL: Unrepsonsive to painful stimuli/ sternal rub. HEAD: No signs of trauma, normocephalic, atraumatic EYES: Pupils 5 mm and non reactive to light, sclera anicteric ENT: Auricles normal inspection, hearing grossly normal, nares patent, oropharynx clear without exudates. Moist mucosa NECK: Normal ROM, supple, no lymphadenopathy, JVD, or masses LUNGS: No audible breath sounds HEART: Absent pulses, and heart sounds. EXTREMITIES : Normal inspection, Normal range of motion, no edema. No clubbing or cyanosis. SKIN: Warm, Dry Procedures - Intubation Intubation Method: nasotracheal Blade used: Mac Tube Size (Fr): 8.0 Tube position confirmed by: Direct visualization, Breath sounds Breath Sounds after Intubation: equal Intubation Complications: vomited, apparent aspiration, oralbleed Post Intubation Xray: No Medical Decision Making - Medical Decision Making 12/29/17 15:23 82 yo M with h/o COPD BIBA from outside nursing facility ( [facility]) unresponsive. Per EMS report EMS was called to pt. facility following lethargy and nasuea with coffee ground emesis earlier today. When EMS arrived pt. was responsive, alert, and lethargic appearing. On arrival at 1406 BP 103/92 with P 125, with BS 196. In route to ED patient more lethargic appearing, repsonisve to painful stimuli only, with decreased respiratory effort. Once patient in ED, HR dropped to from 90's to 40's. Patient brought into room 10 at 02:20 pm and pulseless. Last seen in ED ( 12/05-12/19) for acute hypoxic resp failure. Patient GCS 3, with absent motor, verbal responsive or eye opening. Gag or corneal reflex not intact. Pupils at 5mm and non reactive to light. PMD Dr. Coelman Alexander. ED Course: Aggressive resuscitative measures ACLS started at 2:20 pm with 5 cycles of epinephrine, chest compressions, intubation. Absent ROSC throughout. Absent cardiac activity as visualized on U/S. Continued PEA on monitor. Intubation with direct visualization of larynx and passage of tube through vocal cords. On intubation, brownish red colored fluid aspirated through bag mask and endotracheal tube. Left leg IO placed. Patient pronounced/ at 2:38. Attempted to call next of Kin- [phone] Gucci Matson at 4:34 and call sent to [employer]. Left voicemail message to call me back. 12/29/17 16:48 Rufino Milton ( [employer]) contacted and provided [phone]. Dr. Coleman Alexander notified and will fill out certificate. 12/29/17 17:03 Spoke to Ministerio Tok ) who is in [place] and informed him of pt. . *DC/Admit/Observation/Transfer Diagnosis at time of Disposition: Cardiac arrest Hematemesis Qualifiers: Nausea presence: unspecified Qualified Code(s): K92.0 - Hematemesis Aspiration into airway Qualifiers: Encounter type: initial encounter Qualified Code(s): T17.908A - Unspecified foreign body in respiratory tract, part unspecified causing other injury, initial encounter - Discharge Dispostion Disposition: Condition at time of disposition: - Referrals Referrals: Coleman Alexander MD [Primary Care Provider] - - Patient Instructions - Post Discharge Activity
--- NOTE | 2017-12-29 15:15 | PDOC ---
Attending Attestation - Resident Resident Name: Willie Wyman - ED Attending Attestation I have performed the following: I have examined & evaluated the patient, The case was reviewed & discussed with the resident, I agree w/resident's findings & plan, Exceptions are as noted - HPI HPI: 12/29/17 15:09 82y M presents from [facility] for hemattemsis. EMS was called, upon EMS arrival the pt was lethargic, but alert able to tell them his name. Vitals were stable. Upon transfer, per EMS, the pt becamse less responsive, and eventually unresponsive. He was noted to be bradying down upon arrival to the ED. Upon arrival the pt to the ED, I was bedside immediately and he was unresponsive. Pupils 5mm and fixed b/l nonresponsive to light. Pt was noticed pulseless, compressions were immediately started, IO was obtained and ptwa s given Epi, fluids. BGM was 97. Pt was also put on director of cardiac cath lab that showed asystole. ACLS x 5, no improvement from asystole. Bed side echo performed that showed no cardiac activity at any time. Pt was also intubated in the ED, significant amount of brownish/reddish vomitus noted on oropharynx during intubation by resident. noted elevated pressure when bagging. confirmed tube placement with direct visualization during itnubation by residnt as well as post intubation by myself. Pt was pronounced at 14:37 by myself. I suspect the pt had vomited and aspirated leading to hypoxemic respiratory arrest and cardiac arrest. Dr. Catherine balderrama will notify ME and pts [facility]) 12/29/17 17:04 I was bedside during Dr. Johnston intubation. 1st past success. significant amount of vomitus in airway. +dhigh pressure/resistance when bagging Discharge Disposition - Diagnosis Cardiac arrest Hematemesis Qualifiers: Nausea presence: unspecified Qualified Code(s): K92.0 - Hematemesis Aspiration into airway Qualifiers: Encounter type: initial encounter Qualified Code(s): T17.908A - Unspecified foreign body in respiratory tract, part unspecified causing other injury, initial encounter - Discharge Dispostion Disposition: Condition at time of disposition: Last Admission D/C Date: 12/14/17 Admit: No - Referrals Referrals: Coleman Alexander MD [Primary Care Provider] - - Patient Instructions - Post Discharge Activity
== END 2017-12-29 17:04 | disposition expired ==
LOC: JER 14:23
PROC: 5A12012 Performance of Cardiac Output, Single, Manual (ICD-10-PCS; principal; 2017-12-29)
PROC: 0BH17EZ Insertion of Endotracheal Airway into Trachea, Via Natural or Artificial Opening (ICD-10-PCS; 2017-12-29)
DX: I46.9 Cardiac arrest, cause unspecified (principal); T17.818A Gastric contents in other parts of respiratory tract causing other injury, initial encounter; K92.0 Hematemesis; I10 Essential (primary) hypertension; J44.9 Chronic obstructive pulmonary disease, unspecified; E11.9 Type 2 diabetes mellitus without complications; Z79.4 Long term (current) use of insulin; E83.51 Hypocalcemia; F17.210 Nicotine dependence, cigarettes, uncomplicated; Z79.82 Long term (current) use of aspirin
CPT/HCPCS: 31500; 82962; 92950; 99283-25